=== PATIENT | male | born 1945 | race Caucasian/White ===

== ENCOUNTER 2017-12-14 19:14 | Emergency (ER) | payer MEDICARE ==
[~2017-12-14] VITALS: Ht 185.4 cm; Wt 126.1 kg
[~2017-12-14 19:14] MED LIST: ALLO100 PO; ASPI325T PO; DILT31TA PO; GLUCTAB; HYDR12.56 PO; LANO0.2510 PO; SIMV5TAB32 PO; TELM20 PO
[2017-12-14 19:21] VITALS: BP 168/101; RESP 20; TEMP 98.8
[2017-12-14] MEDS ORDERED: DILT31TA PO (19:40)
[2017-12-14] MEDS ORDERED: ATOR40TA16 PO (19:40)
[2017-12-14] MEDS ORDERED: HYDR-3580 PO (19:40)
[2017-12-14] MEDS ORDERED: HYDR12.56 PO (19:40)
[2017-12-14] MEDS ORDERED: ASPI1CHW4 CHEW (19:40)
[2017-12-14] MEDS ORDERED: OXYC1TAB35 PO (19:40)
[2017-12-14] MEDS ORDERED: METF500T4 PO (19:40)
[2017-12-14] MEDS ORDERED: LISI-519 PO (19:41)
[2017-12-14] MEDS ORDERED: FENO145T2 PO (19:41)
[2017-12-14] MEDS ORDERED: METO25TA3 PO (19:41)
--- NOTE | 2017-12-14 19:44 | PD ---
HPI Chief Complaint: Injury Time Seen by Provider: 19:31 Travel History International Travel<30 days: No Contact w/Intl Traveler<30days: No Traveled to known affect area: No History of Present Illness HPI 72-year-old male complains of right knee pain. Patient status post right knee surgery by Dr. Salazar on November 13, 2017. Patient has been doing well and going through physical therapy. Patient states that he is to cyst right knee today. Patient states that he has increasing pain and swelling the right knee since then. Patient states the pain is sharp pain most severe on the medial aspect of the right knee joint. Patient denies any pain radiation. Patient states that the pain is worse with weightbearing. Patient took oxycodone prior coming to the emergency room. Patient states that he got a lot of relief of pain from oxycodone. Patient states that he's worrying about infection or blood clots in the right knee. Patient denies any history of DVT or PE. Patient denies any chest pain or shortness of breath. PFSH Past Medical History Autoimmune Disease: No Blood Disorders: No Heart Rhythm Problems: Yes Cancer: No High Cholesterol: Yes COPD: Yes Diabetes: Yes Endocrine: No Hiatal Hernia: Yes Hypertension: Yes Kidney Stones: Yes Musculoskeletal: No Neurologic: No Psychiatric: No Respiratory: Yes (COPD) Sleep Apnea: Yes Social History Alcohol Use: Yes (OCCASSIONAL 4 BEERS A MONTH) Tobacco Use: No Substance Use: No Allergies-Medications (Allergen,Severity, Reaction): Coded Allergies: Sulfa (Sulfonamide Antibiotics) (Unverified Allergy, Mild, Nausea/Vomiting , 12/14/17) Reported Meds & Prescriptions Reported Meds & Active Scripts Active Reported Lisinopril 5 Mg Tab 5 Mg PO DAILY Metoprolol Tartrate 25 Mg Tab 25 Mg PO DAILY Fenofibrate 145 Mg Tab 145 Mg PO DAILY Oxycodone-Acetaminophen 7.5-325 mg Tab 1 Tab PO Q4H PRN Hydrocodone-Acetaminophen 7.5 Mg-325 Mg Tab 1 Tab PO Q4H PRN Atorvastatin (Atorvastatin Calcium) 40 Mg Tab 40 Mg PO DAILY Hydrochlorothiazide 12.5 Mg Tab 12.5 Mg PO DAILY Metformin ER (Metformin HCl) 500 Mg Ivis 500 Mg PO DAILY With evening meal Cardizem (Diltiazem HCl) 30 Mg Tab 30 Mg PO DAILY Aspirin 81 Low Dose (Aspirin) 81 Mg Chew 81 Mg CHEW DAILY Review of Systems General / Constitutional: No: Fever Eyes: No: Visual changes HENT: No: Headaches Cardiovascular: No: Chest Pain or Discomfort Respiratory: No: Shortness of Breath Gastrointestinal: No: Abdominal Pain Genitourinary: No: Dysuria Musculoskeletal: Positive: Pain Skin: No Rash Neurologic: No: Weakness Psychiatric: No: Depression Endocrine: No: Polydipsia Hematologic/Lymphatic: No: Easy Bruising Physical Exam Narrative GENERAL: Well-nourished, well-developed patient. SKIN: Focused skin assessment warm/dry. HEAD: Normocephalic. EYES: No scleral icterus. No injection or drainage. NECK: Supple, trachea midline. No JVD or lymphadenopathy. CARDIOVASCULAR: Regular rate and rhythm without murmurs, gallops, or rubs. RESPIRATORY: Breath sounds equal bilaterally. No accessory muscle use. GASTROINTESTINAL: Abdomen soft, non-tender, nondistended. MUSCULOSKELETAL: Patient has moderate tenderness all patient medial collateral ligament area the right knee. Full range of motion the knee. Knee joints stable. Mild effusion noted. No redness no heat noted. Surgical wound healing well. BACK: Nontender without obvious deformity. No CVA tenderness. Neurologic exam normal. Data Data Last Documented VS Vital Signs Date Time Temp Pulse Resp B/P (MAP) Pulse Ox O2 Delivery O2 Flow Rate FiO2 12/14/17 20:20 93 18 157/94 (115) 90 Room Air 12/14/17 19:21 98.8 Orders Orders Complete Blood Count With Diff (12/14/17 19:38) Basic Metabolic Panel (Bmp) (12/14/17 19:38) Prothrombin Time / Inr (Pt) (12/14/17 19:38) Act Partial Throm Time (Ptt) (12/14/17 19:38) Iv Access Insert/Monitor (12/14/17 19:38) Knee, Ltd (1 Or 2vws) (12/14/17 19:38) Us Leg Venous Doppler (12/14/17 19:38) C-Reactive Protein (Crp) (12/14/17 19:43) Westergren Sedimentation Rate (12/14/17 19:43) Labs Laboratory Tests Test 12/14/17 20:00 White Blood Count 8.6 TH/MM3 Red Blood Count 4.55 MIL/MM3 Hemoglobin 13.6 GM/DL Hematocrit 40.6 % Mean Corpuscular Volume 89.4 FL Mean Corpuscular Hemoglobin 29.9 PG Mean Corpuscular Hemoglobin Concent 33.4 % Red Cell Distribution Width 14.1 % Platelet Count 191 TH/MM3 Mean Platelet Volume 8.7 FL Neutrophils (%) (Auto) 72.4 % Lymphocytes (%) (Auto) 15.9 % Monocytes (%) (Auto) 8.5 % Eosinophils (%) (Auto) 2.0 % Basophils (%) (Auto) 1.2 % Neutrophils # (Auto) 6.2 TH/MM3 Lymphocytes # (Auto) 1.4 TH/MM3 Monocytes # (Auto) 0.7 TH/MM3 Eosinophils # (Auto) 0.2 TH/MM3 Basophils # (Auto) 0.1 TH/MM3 CBC Comment DIFF FINAL Differential Comment Erythrocyte Sedimentation Rate 6 mm/hr Prothrombin Time 11.0 SEC Prothromb Time International Ratio 1.1 RATIO Activated Partial Thromboplast Time 22.2 SEC Blood Urea Nitrogen 19 MG/DL Creatinine 1.30 MG/DL Random Glucose 155 MG/DL Calcium Level 9.2 MG/DL Sodium Level 140 MEQ/L Potassium Level 4.0 MEQ/L Chloride Level 106 MEQ/L Carbon Dioxide Level 24.0 MEQ/L Anion Gap 10 MEQ/L Estimat Glomerular Filtration Rate 54 ML/MIN [facility] Medical Decision Making Medical Screen Exam Complete: Yes Emergency Medical Condition: Yes Interpretation(s) Last Impressions Knee X-Ray 12/14/171937 Signed Impressions: Service Date/Time: Thursday, December 14, 2017 19:45 - CONCLUSION: No radiographic evidence of knee effusion. Intact medial hemiarthroplasty hardware. Ignacio Carey MD 21:03 PM. CBC within normal limits. Sedimentation rate 6. BUN 19. GFR 54. Differential Diagnosis Differential diagnosis including ligament injury, fracture, dislocation, DVT. Narrative Course 72-year-old male with increasing pain and swelling the right knee after persistent right knee today. Status post right knee surgery November 13. Diagnosis Primary Impression: Right knee sprain Qualified Codes: S83.411A - Sprain of medial collateral ligament of right knee , initial encounter Patient Instructions: General Instructions Additional Instructions: Continue with medication at home for pain. Follow-up with orthopedist as scheduled. Return if worse. Med/Other Pt SpecificInfo: No Change to Meds Disposition: 01 DISCHARGE HOME Condition: Stable Ramon Michaels MD Dec 14, 2017 19:44
[2017-12-14 20:10] LABS: AUTOMATED NEUTROPHIL # 6.2 TH/MM3 (1.8-7.7); BASOPHIL # 0.1 TH/MM3 (0-0.2); BASOPHIL % 1.2 % (0.0-2.0); EOSINOPHIL # 0.2 TH/MM3 (0-0.4); HEMATOCRIT 40.6 % (39.0-51.0); HEMOGLOBIN 13.6 GM/DL (13.0-17.0); LYMPH % 15.9 % (9.0-44.0); LYMPHOCYTE # 1.4 TH/MM3 (1.0-4.8); MEAN CELL VOLUME 89.4 FL (80.0-100.0); MEAN CORPUSCULAR HEMOGLOBIN 29.9 PG (27.0-34.0); MEAN CORPUSCULAR HGB CONC 33.4 % (32.0-36.0); MEAN PLATELET VOLUME 8.7 FL (7.0-11.0); MONO % 8.5 % (0.0-8.0); MONOCYTE # 0.7 TH/MM3 (0-0.9); NEUT % 72.4 % (16.0-70.0); PLATELET COUNT 191 TH/MM3 (150-450); RED BLOOD COUNT 4.55 MIL/MM3 (4.50-5.90); RED CELL DISTRIBUTION WIDTH 14.1 % (11.6-17.2); WHITE BLOOD COUNT 8.6 TH/MM3 (4.0-11.0)
--- NOTE | 2017-12-14 20:15 | RADRPT ---
EXAM DATE/TIME: 12/14/2017 19:45 [facility] COMPARISON: No previous studies available for comparison. INDICATIONS : Right medial knee pain since surgery 1 month ago. No known trauma. MEDICAL HISTORY : None. SURGICAL HISTORY : Right knee surgery. ENCOUNTER: Initial ACUITY: 1 month PAIN SCORE: 4/10 LOCATION: Right knee FINDINGS: Medial compartment hemiarthroplasty with normal alignment. No abnormal lucencies. No evidence of fr acture. No evidence of dislocation. No distention of the suprapatellar soft tissues. CONCLUSION: No radiographic evidence of knee effusion. Intact medial hemiarthroplasty hardware. Ignacio Carey MD on December 14, 2017 at 20:12 Board Certified Radiologist. This report was verified electronically.
[2017-12-14 20:20] VITALS: BP 157/94; PULSE 93; RESP 18; O2SAT 90
[2017-12-14 20:24] LABS: CALCIUM 9.2 MG/DL (8.5-10.1)
[2017-12-14 20:28] LABS: CREATININE 1.3 MG/DL (0.60-1.30)
[2017-12-14 20:37] LABS: INTERNATIONAL NORMALIZED RATIO 1.1 RATIO
--- NOTE | 2017-12-14 21:16 | RADRPT ---
EXAM DATE/TIME: 12/14/2017 20:57 [facility] COMPARISON: No previous studies available for comparison. INDICATIONS : Right knee pain after twisting it this afternoon. Post right knee replacement November 13, 2017. MEDICAL HISTORY : Hypertension. Diabetic. Kidney stones. SURGICAL HISTORY : Appendectomy. Right knee replacement. ENCOUNTER: Initial ACUITY: 1 day PAIN SCORE: 3/10 LOCATION: Right leg. TECHNIQUE: Venous ultrasound of the leg was performed from the inguinal ligament to the proximal calf. Real-brown e, color Doppler and spectral tracing, compression and augmentation techniques were used. FINDINGS: There is normal compressibility of the deep venous system from the inguinal region to the proximal ca lf. No echogenic clot is seen in the lumen of the common femoral, femoral, popliteal, and posterior tibial veins. There is a normal response of the venous system to proximal and distal augmentation an d respiration. CONCLUSION: Negative for deep venous thrombosis. Ignacio Carey MD on December 14, 2017 at 21:13 Board Certified Radiologist. This report was verified electronically.
== END 2017-12-14 21:36 | disposition home or self-care (01) ==
LOC: PHED 19:14
DX: M25.561 Pain in right knee (principal); S83.411A Sprain of medial collateral ligament of right knee, initial encounter; E11.9 Type 2 diabetes mellitus without complications; I10 Essential (primary) hypertension; J44.9 Chronic obstructive pulmonary disease, unspecified; E78.00 Pure hypercholesterolemia, unspecified; X58.XXXA Exposure to other specified factors, initial encounter; Z88.2 Allergy status to sulfonamides; Z87.442 Personal history of urinary calculi
CPT/HCPCS: 73560; 80048; 85025; 85610; 85652; 85730; 86140; 93971

== ENCOUNTER 2017-12-20 07:48 | Emergency (ER) | payer MEDICARE ==
[~2017-12-20] VITALS: Ht 185.4 cm; Wt 125.0 kg
[~2017-12-20 07:48] MED LIST changes: -ALLO100 PO; +ASPI1CHW4 CHEW; -ASPI325T PO; +ATOR40TA16 PO; +FENO145T2 PO; -GLUCTAB; +HYDR-3580 PO; -LANO0.2510 PO; +LISI-519 PO; +METF500T4 PO; +METO25TA3 PO; +OXYC1TAB35 PO; -SIMV5TAB32 PO; -TELM20 PO
[2017-12-20 07:55] VITALS: PULSE 100; RESP 16; TEMP 99.8; O2SAT 91
--- NOTE | 2017-12-20 08:27 | PD ---
HPI Chief Complaint: GI Complaint Time Seen by Provider: 08:10 Travel History International Travel<30 days: No Contact w/Intl Traveler<30days: No Traveled to known affect area: No History of Present Illness HPI This patient complains of cough and congestion. He has runny nose. Denies fever. He's been having protracted coughing spells which is now making his chest ache. He also complains of aching muscle groups throughout his body. No hemoptysis. Denies cardiac or lung disease. Symptoms severity is moderate. Duration 4 days. No alleviating factors. No exacerbating factors PFSH Past Medical History Hx Anticoagulant Therapy: Yes (asa 81mg) Autoimmune Disease: No Blood Disorders: No Heart Rhythm Problems: Yes Cancer: No Cardiac Catheterization: Yes Cardiovascular Problems: Yes (htn on meds) High Cholesterol: Yes COPD: Yes Diabetes: Yes (type 2) Patient Takes Glucophage: Yes Endocrine: No Hiatal Hernia: Yes Hypertension: Yes Kidney Stones: Yes Musculoskeletal: No Neurologic: No Psychiatric: No Reproductive: No Respiratory: Yes (copd) Immunizations Current: Yes (PREVNAR : 2015) Sleep Apnea: Yes Past Surgical History Appendectomy: Yes Joint Replacement: Yes (PARTIAL RIGHT KNEE) Tonsillectomy: Yes Other Surgery: Yes (APPY,SINUS ABCESS, VACETOMY, KIDNEY STONES) Social History Alcohol Use: Yes (OCCASSIONAL 4 BEERS A MONTH) Tobacco Use: No (QUIT 1982) Substance Use: No Allergies-Medications (Allergen,Severity, Reaction): Coded Allergies: Sulfa (Sulfonamide Antibiotics) (Unverified Allergy, Mild, Nausea/Vomiting , 12/20/17) Reported Meds & Prescriptions Reported Meds & Active Scripts Active Reported Lisinopril 5 Mg Tab 5 Mg PO DAILY Metoprolol Tartrate 25 Mg Tab 25 Mg PO DAILY Fenofibrate 145 Mg Tab 145 Mg PO DAILY Oxycodone-Acetaminophen 7.5-325 mg Tab 1 Tab PO Q4H PRN Hydrocodone-Acetaminophen 7.5 Mg-325 Mg Tab 1 Tab PO Q4H PRN Atorvastatin (Atorvastatin Calcium) 40 Mg Tab 40 Mg PO DAILY Hydrochlorothiazide 12.5 Mg Tab 12.5 Mg PO DAILY Metformin ER (Metformin HCl) 500 Mg Ivis 500 Mg PO DAILY With evening meal Cardizem (Diltiazem HCl) 30 Mg Tab 30 Mg PO DAILY Aspirin 81 Low Dose (Aspirin) 81 Mg Chew 81 Mg CHEW DAILY Review of Systems General / Constitutional: No: Fever Eyes: No: Visual changes HENT: Positive: Rhinorrhea, Congestion, No: Headaches Cardiovascular: Positive: Chest Pain or Discomfort Respiratory: Positive: Cough, No: Shortness of Breath Gastrointestinal: No: Abdominal Pain Genitourinary: No: Dysuria Musculoskeletal: No: Pain Skin: No Rash Neurologic: No: Weakness Psychiatric: No: Depression Endocrine: No: Polydipsia Hematologic/Lymphatic: No: Easy Bruising Physical Exam Narrative GENERAL: Well-nourished, well-developed patient in no apparent distress. SKIN: Focused skin assessment reveals no rash and nodules. Skin is Warm and dry. HEAD: Atraumatic. Normocephalic. EYES: Pupils equal and round. No scleral icterus. No injection or drainage. ENT: No nasal bleeding or discharge. Mucous membranes pink and moist. NECK: Trachea midline. No JVD. CARDIOVASCULAR: Regular rate and rhythm. No murmur appreciated. RESPIRATORY: No accessory muscle use. Clear to auscultation. Breath sounds equal bilaterally. GASTROINTESTINAL: Abdomen soft, non-tender, nondistended. Hepatic and splenic margins not palpable. MUSCULOSKELETAL: No obvious deformities. No clubbing. No cyanosis. No edema. NEUROLOGICAL: Awake and alert. No obvious cranial nerve deficits. Motor grossly within normal limits. Normal speech. PSYCHIATRIC: Appropriate mood and affect; insight and judgment normal. Data Data Last Documented VS Vital Signs Date Time Temp Pulse Resp B/P (MAP) Pulse Ox O2 Delivery O2 Flow Rate FiO2 12/20/17 07:55 99.8 100 16 91 Orders Orders Electrocardiogram (12/20/17 ) Chest, Single Ap (12/20/17 ) Influenzae A/B Antigen (12/20/17 08:21) Ketorolac Inj (Toradol Inj) (12/20/17 09:15) MDM Medical Decision Making Medical Screen Exam Complete: Yes Emergency Medical Condition: Yes Medical Record Reviewed: Yes Differential Diagnosis Bronchitis, pneumonia, URI Narrative Course I have reviewed the patient's electronic medical record. I reviewed his EKG which shows sinus rhythm and no ST elevation. There are a couple of PVCs I reviewed his chest x-ray shows no consolidation. There is some cardiomegaly Influenza swab is positive for influenza A I gave him a Toradol shot for his myalgias and headache Patient's chest pain is noncardiac and related to his coughing We discussed his influenza A. Diagnosis Primary Impression: Influenza A Additional Impressions: Non-cardiac chest pain Myalgia Headache Qualified Codes: R51 - Headache Additional Instructions: The patient was advised to follow up with their physician and return if they worsen. Med/Other Pt SpecificInfo: Other Disposition: 01 DISCHARGE HOME Condition: Stable Ortega Paige MD Dec 20, 2017 08:27
--- NOTE | 2017-12-20 08:47 | RADRPT ---
EXAM DATE/TIME: 12/20/2017 08:33 [facility] COMPARISON: No previous studies available for comparison. INDICATIONS : Cough. MEDICAL HISTORY : None. SURGICAL HISTORY : None. ENCOUNTER: Initial ACUITY: 1 week PAIN SCORE: 2/10 LOCATION: Bilateral chest FINDINGS: A single view of the chest demonstrates the lungs to be symmetrically aerated without evidence of mas s, infiltrate or effusion. There are chronic changes in both lung bases. The heart size is mildly en larged.. Osseous structures are intact. There is curvature of the upper thoracic spine to the right. There is osteopenia of the bony structures. There no prior studies for comparison. CONCLUSION: 1. No acute parenchymal infiltrates are demonstrated. 2. Mild compensated cardiomegaly. 3. Scoliosis with curvature of the upper thoracic spine to the right. Fan Gross MD on December 20, 2017 at 8:44 Board Certified Radiologist. This report was verified electronically.
[2017-12-20] MEDS ORDERED: KETOROLAC TROMETHAMINE 60 MG/2 ML (IM) VIAL IM ONE (09:15)
--- NOTE | 2017-12-20 14:40 | EKG ---
Date Performed: 12/20/2017 Time Performed: 08:32:00 PTAGE: 72 years EKG: Sinus rhythm WITH FREQUENT VENTRICULAR PREMATURE COMPLEXES LEFT ANTERIOR FASCICULAR BLOCK ABNORMAL ECG Since PREVIOUS TRACING , no significant change noted PREVIOUS TRACIN10/25/2008 08.54 DOCTOR: Sarabjit Boggs Interpretating Date/Time 12/20/2017 14:38:19
== END 2017-12-20 09:34 | disposition home or self-care (01) ==
LOC: PHED 07:48
DX: J09.X2 Influenza due to identified novel influenza A virus with other respiratory manifestations (principal); R07.89 Other chest pain; M79.1 Myalgia; R51 Headache; I10 Essential (primary) hypertension; E78.00 Pure hypercholesterolemia, unspecified; J44.9 Chronic obstructive pulmonary disease, unspecified; E11.9 Type 2 diabetes mellitus without complications; R94.31 Abnormal electrocardiogram [ECG] [EKG]; Z87.891 Personal history of nicotine dependence; Z88.2 Allergy status to sulfonamides; Z79.84 Long term (current) use of oral hypoglycemic drugs; Z79.82 Long term (current) use of aspirin; Z79.899 Other long term (current) drug therapy
CPT/HCPCS: 71045; 87804; 93005; 96372; 99285; J1885

== ENCOUNTER 2017-12-20 20:17 | Inpatient (IN) | payer MEDICARE ==
[~2017-12-20] VITALS: Ht 185.4 cm; Wt 128.4 kg
[2017-12-20 20:25] VITALS: BP 126/88; PULSE 94; RESP 20; TEMP 99.9; O2SAT 90
--- NOTE | 2017-12-20 21:30 | PD ---
HPI Chief Complaint: Cold / Flu Symptoms Time Seen by Provider: 21:13 Travel History International Travel<30 days: No Contact w/Intl Traveler<30days: No Traveled to known affect area: No History of Present Illness HPI The patient is a 72-year-old male with a history of COPD who was seen earlier today and found to have influenza A. He comes back in today because he feels miserable. The patient does not get oxygen at home. He states he has a headache and was given Toradol which helped temporarily. He is short of breath. He is diabetic and does take metformin for this. He also takes hydrocodone 7.5 for his headache. Apparently, his chest x-ray shows mild compensated cardiomegaly but no acute parenchymal infiltrates. PFSH Past Medical History Hx Anticoagulant Therapy: Yes (asa 81mg) Autoimmune Disease: No Blood Disorders: No Heart Rhythm Problems: Yes Cancer: No Cardiac Catheterization: Yes Cardiovascular Problems: Yes (htn on meds) High Cholesterol: Yes COPD: Yes Diabetes: Yes (type 2) Endocrine: No Hiatal Hernia: Yes Hypertension: Yes Kidney Stones: Yes Musculoskeletal: No Neurologic: No Psychiatric: No Reproductive: No Respiratory: Yes (COPD) Immunizations Current: Yes (PREVNAR 13: 2015) Sleep Apnea: Yes Past Surgical History Appendectomy: Yes Joint Replacement: Yes (PARTIAL RIGHT KNEE) Tonsillectomy: Yes Other Surgery: Yes (APPY,SINUS ABCESS, VACETOMY, KIDNEY STONES) Social History Alcohol Use: Yes (OCCASSIONAL 4 BEERS A MONTH) Tobacco Use: No (QUIT 1982) Substance Use: No Allergies-Medications (Allergen,Severity, Reaction): Coded Allergies: Sulfa (Sulfonamide Antibiotics) (Verified Allergy, Mild, Nausea/Vomiting, 12/20/17) Reported Meds & Prescriptions Reported Meds & Active Scripts Active Reported Lisinopril 5 Mg Tab 5 Mg PO DAILY Metoprolol Tartrate 25 Mg Tab 25 Mg PO DAILY Fenofibrate 145 Mg Tab 145 Mg PO DAILY Hydrocodone-Acetaminophen 7.5 Mg-325 Mg Tab 1 Tab PO Q4H PRN Atorvastatin (Atorvastatin Calcium) 40 Mg Tab 40 Mg PO DAILY Hydrochlorothiazide 12.5 Mg Tab 12.5 Mg PO DAILY Metformin ER (Metformin HCl) 500 Mg Ivis 500 Mg PO DAILY With evening meal Cardizem (Diltiazem HCl) 30 Mg Tab 30 Mg PO DAILY Aspirin 81 Low Dose (Aspirin) 81 Mg Chew 81 Mg CHEW DAILY Review of Systems Except as stated in HPI: all other systems reviewed are Neg Physical Exam Narrative GENERAL: The patient is alert, oriented 3 in slight respiratory distress. His vital signs show temperature of 99.9, pulse rate of 94 with oximetry of 90%. SKIN: Focused skin assessment warm/dry. HEAD: Atraumatic. Normocephalic. EYES: Pupils equal and round. No scleral icterus. No injection or drainage. ENT: No nasal bleeding or discharge. Mucous membranes pink and moist. NECK: Trachea midline. No JVD. CARDIOVASCULAR: Regular rate and rhythm. No murmur appreciated. RESPIRATORY: No accessory muscle use. Scattered wheezes are heard bilaterally. Breath sounds equal bilaterally. GASTROINTESTINAL: Abdomen soft, non-tender, nondistended. Hepatic and splenic margins not palpable. MUSCULOSKELETAL: No obvious deformities. No clubbing. No cyanosis. No edema. NEUROLOGICAL: Awake and alert. No obvious cranial nerve deficits. Motor grossly within normal limits. Normal speech. PSYCHIATRIC: Appropriate mood and affect; insight and judgment normal. Data Data Last Documented VS Vital Signs Date Time Temp Pulse Resp B/P (MAP) Pulse Ox O2 Delivery O2 Flow Rate FiO2 12/20/17 22:31 91 Nasal Cannula 3.00 12/20/17 22:30 105 18 12/20/17 20:25 99.9 Orders Orders Complete Blood Count With Diff (12/20/17 21:34) Basic Metabolic Panel (Bmp) (12/20/17 21:34) B-Type Natriuretic Peptide (12/20/17 21:34) Magnesium (Mg) (12/20/17 21:34) Troponin I (12/20/17 21:34) Arterial Blood Gas (Abg) (12/20/17 21:34) Urinalysis - C+S If Indicated (12/20/17 21:34) Iv Access Insert/Monitor (12/20/17 21:34) Ecg Monitoring (12/20/17 21:34) Oximetry (12/20/17 21:34) Oxygen Administration (12/20/17 21:34) Sodium Chloride 0.9% Flush (Ns Flush) (12/20/17 21:45) Albuterol-Ipratropium Neb (Duoneb Neb) (12/20/17 21:45) Ketorolac Inj (Toradol Inj) (12/20/17 21:45) Oseltamivir (Tamiflu) (12/20/17 23:30) Albuterol-Ipratropium Neb (Duoneb Neb) (12/20/17 23:30) Methylprednisolone So Succ Inj (Solumedr (12/21/17 00:00) Budeson-Formot 160-4.5 Mcg Inh (Symbicor (12/21/17 09:00) Admit To Inpatient (12/20/17 ) Vital Signs (Adult) Q4H (12/20/17 23:27) Activity Oob Ad Saranya (12/20/17 23:27) [facility] Justice / Telemetry .CONTINUOUS (12/20/17:) Intake + Output VIVI.QSHIFT (12/20/17 23:27) Sodium Chlor 0.9% 1000 Ml Inj (Ns 1000 M (12/20/17 23:27) Sodium Chloride 0.9% Flush (Ns Flush) (12/20/17 23:30) Sodium Chloride 0.9% Flush (Ns Flush) (12/21/17 09:00) Ondansetron Inj (Zofran Inj) (12/20/17 23:30) Comprehensive Metabolic Panel (12/21/17 06:00) Complete Blood Count With Diff (12/21/17 06:00) Pt Request For Service (12/20/17 23:27) Case Management Consult (12/20/17 23:27) Scd Bilateral/Knee High VIVI.BID (12/20/17 23:27) Asif Bilateral/Knee High VIVI.QSHIFT (12/20/17 23:30) Acetaminophen (Tylenol) (12/20/17 23:30) Acetamin-Hydrocod 325-5 Mg (Vidal 5-325 (12/20/17 23:30) Acetamin-Hydrocod 325-10 Mg (Vidal 10-32 (12/20/17 23:30) Docusate Sodium-Senna (Sarah-Colace) (12/21/17 09:00) Magnesium Hydroxide Liq (Milk Of Magnesi (12/20/17 23:30) Sennosides (Senokot) (12/20/17 23:30) Bisacodyl Supp (Dulcolax Supp) (12/20/17 23:30) Lactulose Liq (Lactulose Liq) (12/20/17 23:30) Inpatient Certification (12/20/17 ) Bedside Glucose VIVI.CSUGAR (12/20/17 23:27) Blood Glucose Goal (Criteria) (12/20/17 23:27) Hypoglycemia 70 Mg/Dl Or < (12/20/17 23:27) Notify Dr: Other (12/20/17 23:27) Dextrose 50% In Mary Jo (Vial) Inj (D50w (Vi (12/20/17 23:30) Glucagon Inj (Glucagon Inj) (12/20/17 23:30) Insulin Aspart Supplemtl Scale (Novolog (12/21/17 08:00) Aspirin Chew (Aspirin Chew) (12/21/17 09:00) Atorvastatin (Lipitor) (12/21/17 09:00) Diltiazem (Cardizem) (12/21/17 09:00) Fenofibrate (Tricor) (12/21/17 09:00) Metoprolol Tartrate (Lopressor) (12/21/17 09:00) Diet 1800 Ada Cons Carb (12/21/17 Breakfast) Admit Order (Ed Use Only) (12/20/17 23:34) Labs Laboratory Tests Test 12/20/17 21:55 12/20/17 22:21 12/20/17 22:55 12/20/17 23:00 Blood Gas Puncture Site RT RADIAL Blood Gas Patient Temperature 98.6 Blood Gas HCO3 24 mmol/L Blood Gas Base Excess 0.0 mmol/L Blood Gas Oxygen Saturation 85 % Arterial Blood pH 7.42 Arterial Blood Partial Pressure CO2 37 mmHG Arterial Blood Partial Pressure O2 53 mmHG Arterial Blood Oxygen Content 13.4 Vol % Arterial Blood Carboxyhemoglobin 2.0 % Arterial Blood Methemoglobin 1.0 % Blood Gas Hemoglobin 11.2 G/DL Blood Gas Inspired Oxygen 21 % Blood Urea Nitrogen 24 MG/DL Creatinine 1.60 MG/DL Random Glucose 148 MG/DL Calcium Level 8.8 MG/DL Magnesium Level 2.0 MG/DL Sodium Level 138 MEQ/L Potassium Level 4.5 MEQ/L Chloride Level 107 MEQ/L Carbon Dioxide Level 23.0 MEQ/L Anion Gap MEQ/L Estimat Glomerular Filtration Rate 43 ML/MIN Troponin I LESS THAN 0.02 NG/ML B-Type Natriuretic Peptide 73 PG/ML Urine Color DEE Urine Turbidity CLEAR Urine pH 5.0 Urine Specific [place] 1.035 Urine Protein 100 mg/dL Urine Glucose (UA) NEG mg/dL Urine Ketones NEG mg/dL Urine Occult Blood NEG Urine Nitrite NEG Urine Bilirubin NEG Urine Leukocyte Esterase NEG Urine RBC 0-3 /hpf Urine WBC 0-2 /hpf Urine Squamous Epithelial Cells 0-5 /hpf Urine Amorphous Sediment FEW Urine Bacteria NONE /hpf Microscopic Urinalysis Comment CULT NOT INDICATED White Blood Count 7.6 TH/MM3 Red Blood Count 4.04 MIL/MM3 Hemoglobin 12.0 GM/DL Hematocrit 36.0 % Mean Corpuscular Volume 89.0 FL Mean Corpuscular Hemoglobin 29.8 PG Mean Corpuscular Hemoglobin Concent 33.4 % Red Cell Distribution Width 14.2 % Platelet Count 184 TH/MM3 Mean Platelet Volume 8.2 FL Neutrophils (%) (Auto) 66.5 % Lymphocytes (%) (Auto) 21.4 % Monocytes (%) (Auto) 10.9 % Eosinophils (%) (Auto) 0.2 % Basophils (%) (Auto) 1.0 % Neutrophils # (Auto) 5.1 TH/MM3 Lymphocytes # (Auto) 1.6 TH/MM3 Monocytes # (Auto) 0.8 TH/MM3 Eosinophils # (Auto) 0.0 TH/MM3 Basophils # (Auto) 0.1 TH/MM3 CBC Comment DIFF FINAL Differential Comment MDM Medical Decision Making Medical Screen Exam Complete: Yes Emergency Medical Condition: Yes Medical Record Reviewed: Yes Interpretation(s) The chest x-ray shows no acute parenchymal infiltrates but does show mild compensated cardiomegaly and scoliosis. The blood gases on room air show pH 7.42, CO2 37, PO2 53 with O2 sat 85%. The BNP is 72. Differential Diagnosis COPD with acute exacerbation, flu syndrome, pneumonia-unlikely bronchitis with bronchospasm, hypoxemia Narrative Course The patient has COPD with acute exacerbation, bronchitis with bronchospasm and hypoxemia. He did get some relief with a DuoNeb treatments. The patient is hypoxemic when he is off oxygen and will need the oxygen. He also will benefit from nebulize treatments, he does not have a nebulizer at home. Physician Communication Physician Communication I discussed the patient with Dr. Apple, the patient will be admitted to her. Diagnosis Primary Impression: COPD with acute exacerbation Additional Impressions: Bronchitis with bronchospasm Hypoxemia Admitting Information Admitting Physician Requests: Admit Reyes Chen MD Dec 20, 2017 21:30
[2017-12-20] MEDS: RESP: ALBUTEROL 2.5 MG/IPRATROPIUM 0.5 MG NEB (SCH) INH ×3 (21:44→22:03)
[2017-12-20] MEDS ORDERED: SODIUM CHLORIDE 0.9% FLUSH 10 ML FLUSH IVF PRN (21:45)
[2017-12-20] MEDS ORDERED: KETOROLAC TROMETHAMINE 60 MG/2 ML (IM) VIAL IM ONE (21:45)
[2017-12-20 22:30] VITALS: BP 140/76; PULSE 105; RESP 18; O2SAT 91
[2017-12-20 22:31] VITALS: O2SAT 91
[2017-12-20 22:50] LABS: CHLORIDE 107 MEQ/L (98-107); SODIUM (NA) 138 MEQ/L (136-145)
[2017-12-20 22:52] LABS: CALCIUM 8.8 MG/DL (8.5-10.1)
[2017-12-20 22:53] LABS: BLOOD UREA NITROGEN 24 MG/DL (7-18); GLUCOSE,RANDOM 148 MG/DL (74-106)
[2017-12-20 22:56] LABS: GLOMERULAR FILTRATION RATE 43 ML/MIN (>89)
[2017-12-20 23:01] LABS: TROPONIN I LESS THAN 0.02 NG/ML (0.02-0.05)
[2017-12-20 23:09] LABS: AUTOMATED NEUTROPHIL # 5.1 TH/MM3 (1.8-7.7); BASOPHIL # 0.1 TH/MM3 (0-0.2); EOSINOPHIL % 0.2 % (0.0-4.0); LYMPH % 21.4 % (9.0-44.0); LYMPHOCYTE # 1.6 TH/MM3 (1.0-4.8); MEAN CORPUSCULAR HEMOGLOBIN 29.8 PG (27.0-34.0); MEAN CORPUSCULAR HGB CONC 33.4 % (32.0-36.0); MEAN PLATELET VOLUME 8.2 FL (7.0-11.0); MONO % 10.9 % (0.0-8.0); MONOCYTE # 0.8 TH/MM3 (0-0.9); NEUT % 66.5 % (16.0-70.0); PLATELET COUNT 184 TH/MM3 (150-450); RED BLOOD COUNT 4.04 MIL/MM3 (4.50-5.90); RED CELL DISTRIBUTION WIDTH 14.2 % (11.6-17.2); WHITE BLOOD COUNT 7.6 TH/MM3 (4.0-11.0)
[2017-12-20 23:10] LABS: BLOOD, URINE NEG (NEG); GLUCOSE,URINE NEG (NEG); KETONE, URINE NEG (NEG); NITRITE,URINE NEG (NEG); URINE LEUKOCYTE ESTERASE NEG (NEG)
[2017-12-20 23:20] LABS: BILIRUBIN, URINE NEG (NEG)
[2017-12-20 23:21] LABS: URINE COLOR AMBER (YELLW/STRAW)
[2017-12-20 23:22] LABS: AMORPHOUS SEDIMENT, URINE FEW; RBC, URINE 0-3 /hpf (0-3); SQUAMOUS EPITHELIAL CELL URINE 0-5 /hpf (0-5); WBC, URINE 0-2 /hpf (0-5)
[2017-12-20] MEDS ORDERED: LACTULOSE SYRUP 20 GM/30 ML CUP PO PRN (23:30)
[2017-12-20] MEDS ORDERED: SENNOSIDES 8.6 MG TAB PO PRN (23:30)
[2017-12-20] MEDS ORDERED: ACETAMINOPHEN 325 MG TAB PO PRN (23:30)
[2017-12-20] MEDS ORDERED: ACETAMINOPHEN/HYDROcodone 325 MG/5 MG TAB PO PRN (23:30)
[2017-12-20] MEDS ORDERED: BISACODYL 10 MG SUPP RECTAL PRN (23:30)
[2017-12-20] MEDS ORDERED: SODIUM CHLORIDE 0.9% FLUSH 10 ML FLUSH IV FLUSH PRN (23:30)
[2017-12-20] MEDS ORDERED: ONDANSETRON HCL 4 MG/2 ML VIAL IVP PRN (23:30)
[2017-12-20] MEDS ORDERED: RESP: ALBUTEROL 2.5 MG/IPRATROPIUM 0.5 MG NEB (PRN) NEB (23:30)
[2017-12-20] MEDS ORDERED: GLUCAGON 1 MG/ML VIAL OTHER PRN (23:30)
[2017-12-20] MEDS ORDERED: DEXTROSE 50% IN WATER 50 ML VIAL(D50) IV PUSH PRN (23:30)
[2017-12-20] MEDS ORDERED: MAGNESIUM HYDROXIDE SUSP 30 ML CUP PO PRN (23:30)
[2017-12-20 23:38] VITALS: BP 94/57; PULSE 92; RESP 16; O2SAT 93
[2017-12-21] VITALS (11 sets, daily range): BP systolic 126–160; BP diastolic 66–82; PULSE 73–94; RESP 14–22; TEMP 97.3–99.5; O2SAT 86–97
[2017-12-21] MEDS: SODIUM CHLOR 0.9% 1000 ML INJ 1,000 ML IV SCH ×3 (00:04→22:14)
[2017-12-21] MEDS: OSELTAMIVIR PHOSPHATE 75 MG CAP PO SCH ×3 (00:04→21:09)
[2017-12-21] MEDS: methylPREDNISolone SOD SUCC 40 MG/1 ML VIAL IV PUSH SCH ×4 (00:10→17:59)
[2017-12-21 07:02] LABS: AUTOMATED NEUTROPHIL # 4.9 TH/MM3 (1.8-7.7); BASOPHIL % 0.3 % (0.0-2.0); HEMATOCRIT 32.6 % (39.0-51.0); HEMOGLOBIN 10.7 GM/DL (13.0-17.0); LYMPH % 9.2 % (9.0-44.0); LYMPHOCYTE # 0.5 TH/MM3 (1.0-4.8); MEAN CELL VOLUME 90.1 FL (80.0-100.0); MEAN CORPUSCULAR HEMOGLOBIN 29.6 PG (27.0-34.0); MEAN CORPUSCULAR HGB CONC 32.8 % (32.0-36.0); MEAN PLATELET VOLUME 8.3 FL (7.0-11.0); MONO % 5.2 % (0.0-8.0); MONOCYTE # 0.3 TH/MM3 (0-0.9); NEUT % 85.3 % (16.0-70.0); PLATELET COUNT 151 TH/MM3 (150-450); RED BLOOD COUNT 3.61 MIL/MM3 (4.50-5.90); RED CELL DISTRIBUTION WIDTH 13.6 % (11.6-17.2); WHITE BLOOD COUNT 5.7 TH/MM3 (4.0-11.0)
[2017-12-21 07:03] LABS: CHLORIDE 106 MEQ/L (98-107); SODIUM (NA) 139 MEQ/L (136-145)
[2017-12-21 07:23] LABS: ALBUMIN 3.1 GM/DL (3.4-5.0); ALKALINE PHOSPHATASE 46 U/L (45-117); ALT (GPT) 13 U/L (12-78); AST (GOT) 15 U/L (15-37); BICARBONATE 25.7 MEQ/L (21.0-32.0); BLOOD UREA NITROGEN 28 MG/DL (7-18); CALCIUM 8.2 MG/DL (8.5-10.1); GLOMERULAR FILTRATION RATE 40 ML/MIN (>89); GLUCOSE,RANDOM 180 MG/DL (74-106); TOTAL BILIRUBIN ADULT 0.6 MG/DL (0.2-1.0); TOTAL PROTEIN 6.8 GM/DL (6.4-8.2)
[2017-12-21] MEDS: INSULIN ASPART SUPPLEMENTAL SCALE SQ SCH ×4 (08:00→22:14)
--- NOTE | 2017-12-21 08:36 | HHI.HP ---
HPI Service [facility] Hospitalists Primary Care Physician Non-Staff Admission Diagnosis COPD with acute exacerbation, hypoxemia, bronchitis with bronchospas Diagnoses: (1) Acute respiratory failure with hypoxia Diagnosis: Principal (2) Influenza A Diagnosis: Principal Chief Complaint: Did not feel well Travel History International Travel<30 Days: No Contact w/Intl Traveler <30 Da: No Traveled to Known Affected Are: No Sepsis Criteria SIRS Criteria (2 or more): Heart rate over 90 Sepsis Criteria (SIRS+source): Infect source susp/known History of Present Illness 72 year-old male with known history of diabetes, hypertension, hyponatremia, chronic obstructive pulmonary disease, obstructive sleep apnea who presented to hospital did not feel well. Patient states that on Friday morning he did come to emergency department and was diagnosed with influenza A, patient was discharged home on Tamiflu. Patient states that he got home and started feeling worse with productive cough with white phlegm, fever, headache, body aches. Patient was concerned that he felt like he is going to . He indicates that he had a friend that just lost his and cousin the flu so he was concerned so he came to emergency department for evaluation. Patient had further workup done with blood gas that did show hypoxia. Because of this the patient was recommended admission the hospital for further evaluation and management. Review of Systems Constitutional: COMPLAINS OF: Diaphoretic episodes, Fever, Chills Ears, nose, mouth, throat: COMPLAINS OF: Throat pain, Running Nose Respiratory: COMPLAINS OF: Cough, Sputum production Except as stated in HPI: all other systems reviewed are Neg Past Family Social History Past Medical History Hypertension Hyperlipidemia Chronic affective pulmonary disease Diabetes Arthritis Obstructive sleep apnea requiring CPAP Past Surgical History Right knee surgery Appendectomy Tonsillectomy Melanoma excision 3 Reported Medications Reported Meds & Active Scripts Active Reported Lisinopril 5 Mg Tab 5 Mg PO DAILY Metoprolol Tartrate 25 Mg Tab 25 Mg PO DAILY Fenofibrate 145 Mg Tab 145 Mg PO DAILY Hydrocodone-Acetaminophen 7.5 Mg-325 Mg Tab 1 Tab PO Q4H PRN Atorvastatin (Atorvastatin Calcium) 40 Mg Tab 40 Mg PO DAILY Hydrochlorothiazide 12.5 Mg Tab 12.5 Mg PO DAILY Metformin ER (Metformin HCl) 500 Mg Ivis 500 Mg PO DAILY With evening meal Cardizem (Diltiazem HCl) 30 Mg Tab 30 Mg PO DAILY Aspirin 81 Low Dose (Aspirin) 81 Mg Chew 81 Mg CHEW DAILY Allergies: Coded Allergies: Sulfa (Sulfonamide Antibiotics) (Verified Allergy, Mild, Nausea/Vomiting, 12/20/17) Family History Reviewed is significant for father at age 72 with metastatic cancer. Mother at 48 from myocardial infarction Social History Patient quit smoking in 1982, prior to that she smoked one pack a cigarettes a day since he was 17 years old. He does drink 2 beers occasionally. Denies any illicit drugs Physical Exam Vital Signs Vital Signs Date Time Temp Pulse Resp B/P (MAP) Pulse Ox O2 Delivery O2 Flow Rate FiO2 12/21/17 07:37 95 Nasal Cannula 3.00 12/21/17 04:48 97.9 80 18 132/68 (89) 90 12/21/17 02:59 73 12/21/17 02:30 97.3 81 16 138/70 (92) 90 12/21/17 02:12 97 Nasal Cannula 3.00 12/21/17 01:24 94 18 94 Nasal Cannula 3.00 12/21/17 01:19 94 18 94 Nasal Cannula 3.00 12/21/17 00:42 93 18 126/66 (86) 94 Nasal Cannula 3.00 12/20/17 23:38 92 16 94/57 (69) 93 Nasal Cannula 3.00 12/20/17 22:31 91 Nasal Cannula 3.00 12/20/17 22:30 105 18 140/76 (97) 91 Nasal Cannula 3.00 12/20/17 22:28 91 Nasal Cannula 3.00 12/20/17 20:50 18 93 Nasal Cannula 3.00 12/20/17 20:25 99.9 94 20 126/88 (101) 90 Physical Exam GENERAL: Well-developed, well-nourished, in no acute distress. alert and orientated HEENT: Head is normocephalic without any lesions or masses noted. Facial features are symmetric. Eyes: Pupils equal round reactive to light. Extraocular muscles are intact. Conjunctivae were clear. Oropharyngeal: Pharynx without any erythema edema. Tongue is midline without deviation. Buccal mucosa is moist without any masses or lesions NECK: Supple without any masses. Trachea midline no deviation. No JVD, no bruits are appreciated CARDIAC: Regular rhythm, regular rate. S1/S2 are heard. No murmurs gallops or rubs. LUNGS: Clear to auscultation bilaterally. No wheeze, rhonchi or rales. No use of accessory muscles on inspiration or expiration. ABDOMEN: Soft, nontender. Nondistended. Bowel sounds heard in all 4 quadrants. No organomegaly or masses. Negative rebound, negative guarding EXTREMITIES: No edema, pulses are equal bilaterally. No cyanosis or clubbing NEUROLOGY: Mood and affect appear appropriate. Cranial nerves II through XII grossly intact. Muscle strength 5/5 in upper and lower extremities bilaterally. Deep tendon reflexes are 2+ in upper and lower extremities bilaterally. Laboratory Laboratory Tests Test 12/20/17 21:55 12/20/17 22:21 12/20/17 22:55 12/20/17 23:00 Blood Gas Puncture Site RT RADIAL Blood Gas Patient Temperature 98.6 Blood Gas HCO3 24 Blood Gas Base Excess 0.0 Blood Gas Oxygen Saturation 85 Arterial Blood pH 7.42 Arterial Blood Partial Pressure CO2 37 Arterial Blood Partial Pressure O2 53 Arterial Blood Oxygen Content 13.4 Arterial Blood Carboxyhemoglobin 2.0 Arterial Blood Methemoglobin 1.0 Blood Gas Hemoglobin 11.2 Blood Gas Inspired Oxygen 21 Blood Urea Nitrogen 24 Creatinine 1.60 Random Glucose 148 Calcium Level 8.8 Magnesium Level 2.0 Sodium Level 138 Potassium Level 4.5 Chloride Level 107 Carbon Dioxide Level 23.0 Anion Gap Estimat Glomerular Filtration Rate 43 Troponin I LESS THAN 0.02 B-Type Natriuretic Peptide 73 Urine Color DEE Urine Turbidity CLEAR Urine pH 5.0 Urine Specific [place] 1.035 Urine Protein 100 Urine Glucose (UA) NEG Urine Ketones NEG Urine Occult Blood NEG Urine Nitrite NEG Urine Bilirubin NEG Urine Leukocyte Esterase NEG Urine RBC 0-3 Urine WBC 0-2 Urine Squamous Epithelial Cells 0-5 Urine Amorphous Sediment FEW Urine Bacteria NONE Microscopic Urinalysis Comment CULT NOT INDICATED White Blood Count 7.6 Red Blood Count 4.04 Hemoglobin 12.0 Hematocrit 36.0 Mean Corpuscular Volume 89.0 Mean Corpuscular Hemoglobin 29.8 Mean Corpuscular Hemoglobin Concent 33.4 Red Cell Distribution Width 14.2 Platelet Count 184 Mean Platelet Volume 8.2 Neutrophils (%) (Auto) 66.5 Lymphocytes (%) (Auto) 21.4 Monocytes (%) (Auto) 10.9 Eosinophils (%) (Auto) 0.2 Basophils (%) (Auto) 1.0 Neutrophils # (Auto) 5.1 Lymphocytes # (Auto) 1.6 Monocytes # (Auto) 0.8 Eosinophils # (Auto) 0.0 Basophils # (Auto) 0.1 CBC Comment DIFF FINAL Differential Comment Test 12/21/17 06:40 White Blood Count 5.7 Red Blood Count 3.61 Hemoglobin 10.7 Hematocrit 32.6 Mean Corpuscular Volume 90.1 Mean Corpuscular Hemoglobin 29.6 Mean Corpuscular Hemoglobin Concent 32.8 Red Cell Distribution Width 13.6 Platelet Count 151 Mean Platelet Volume 8.3 Neutrophils (%) (Auto) 85.3 Lymphocytes (%) (Auto) 9.2 Monocytes (%) (Auto) 5.2 Eosinophils (%) (Auto) 0.0 Basophils (%) (Auto) 0.3 Neutrophils # (Auto) 4.9 Lymphocytes # (Auto) 0.5 Monocytes # (Auto) 0.3 Eosinophils # (Auto) 0.0 Basophils # (Auto) 0.0 CBC Comment DIFF FINAL Differential Comment Blood Urea Nitrogen 28 Creatinine 1.70 Random Glucose 180 Total Protein 6.8 Albumin 3.1 Calcium Level 8.2 Alkaline Phosphatase 46 Aspartate Amino Transf (AST/SGOT) 15 Alanine Aminotransferase (ALT/SGPT) 13 Total Bilirubin 0.6 Sodium Level 139 Potassium Level 4.3 Chloride Level 106 Carbon Dioxide Level 25.7 Anion Gap 7 Estimat Glomerular Filtration Rate 40 Result Diagram: 12/21/1740 12/21/1740 Caprini VTE Risk Assessment Caprini VTE Risk Assessment: Mod/High Risk (score >= 2) Caprini Risk Assessment Model Point Value = 1 Point Value = 2 Point Value = 3 Point Value = 5 Age 41-60 Minor surgery BMI > 25 kg/m2 Swollen legs Varicose veins or History of unexplained or recurrent spontaneous Oral contraceptives or hormone replacement Sepsis (< 1 month) Serious lung disease, including pneumonia (< 1 month) Abnormal pulmonary function Acute myocardial infarction Congestive heart failure (< 1 month) History of inflammatory bowel disease Medical patient at bed rest Age 61-74 Arthroscopic surgery Major open surgery (> 45 min) Laparoscopic surgery (> 45 min) Malignancy Confined to bed (> 72 hours) Immobilizing plaster cast Central venous access Age >= 75 History of VTE Family history of VTE Factor V Leiden Prothrombin [id number] Lupus anticoagulant Anticardiolipin antibodies Elevated serum homocysteine Heparin-induced thrombocytopenia Other congenital or acquired thrombophilia Stroke (< 1 month) Elective arthroplasty Hip, pelvis, or leg fracture Acute spinal cord injury (< 1 month) Prophylaxis Regimen Total Risk Factor Score Risk Level Prophylaxis Regimen 0-1 Low Early ambulation 2 Moderate Order ONE of the following: *Sequential Compression Device (SCD) *Heparin 5000 units SQ BID 3-4 Higher Order ONE of the following medications: *Heparin 5000 units SQ TID *Enoxaparin/Lovenox 40 mg SQ daily (WT < 150 kg, CrCl > 30 mL/min) *Enoxaparin/Lovenox 30 mg SQ daily (WT < 150 kg, CrCl > 10-29 mL/min) *Enoxaparin/Lovenox 30 mg SQ BID (WT < 150 kg, CrCl > 30 mL/min) AND/OR *Sequential Compression Device (SCD) 5 or more Highest Order ONE of the following medications: *Heparin 5000 units SQ TID (Preferred with Epidurals) *Enoxaparin/Lovenox 40 mg SQ daily (WT < 150 kg, CrCl > 30 mL/min) *Enoxaparin/Lovenox 30 mg SQ daily (WT < 150 kg, CrCl > 10-29 mL/min) *Enoxaparin/Lovenox 30 mg SQ BID (WT < 150 kg, CrCl > 30 mL/min) AND *Sequential Compression Device (SCD) Assessment and Plan Assessment and Plan Acute hypoxic respiratory failure, likely secondary to influenza A infection with underlying chronic obstructive pulmonary disease Continue O2 supplementation maintain O2 sats greater than 92% Continue Solu-Medrol 40 mg every 6 hours Continue duo nebs every 6 hours and every 2 hours Chest x-ray does not indicate any infiltrates. Does show compensated cardiomegaly Patient was tachycardic on presentation with hypoxia. Will obtain d-dimer with reflex pulmonary angiogram if needed Influenza A infection Continue Tamiflu Symptomatic treatment Diabetes Accu-Cheks with sliding scale insulin Hypertension, hyperlipidemia, Home medications continued Obstructive sleep apnea May use own CPAP DVT prevention Subcutaneous heparin Sequential compression devices Physician Certification 2 Midnight Certification Type: Admission for Inpatient Services Order for Inpatient Services The services are ordered in accordance with Medicare regulations or non- Medicare payer requirements, as applicable. In the case of services not specified as inpatient-only, they are appropriately provided as inpatient services in accordance with the 2-midnight benchmark. Estimated LOS (days): 2 days is the estimated time the patient will need to remain in the hospital, assuming treatment plan goals are met and no additional complications. Post-Hospital Plan: Not yet determined Ortega Chen Dec 21, 2017 08:36
[2017-12-21] MEDS: DILTIAZEM HCL 30 MG TAB PO SCH (08:59)
[2017-12-21] MEDS: METOPROLOL TARTRATE 25 MG TAB PO SCH (09:00)
[2017-12-21] MEDS: SODIUM CHLORIDE 0.9% FLUSH 10 ML FLUSH IV FLUSH SCH ×2 (09:00→21:09)
[2017-12-21] MEDS: ATORVASTATIN 40 MG TAB PO SCH (09:00)
[2017-12-21] MEDS: FENOFIBRATE 145 MG TAB PO SCH (09:01)
[2017-12-21] MEDS: ASPIRIN 81 MG CHEW TAB CHEW SCH (09:01)
[2017-12-21] MEDS: DOCUSATE SODIUM 50 MG/SENNA 8.6 MG TAB PO SCH ×2 (09:02→21:09)
[2017-12-21] MEDS: BUDESONIDE-FORMOTEROL 160/4.5 MCG INHALER INH SCH ×2 (09:03→21:08)
[2017-12-21] MEDS: ACETAMINOPHEN/HYDROcodone 325 MG/10 MG TAB PO PRN ×2 (11:17→21:10)
[2017-12-21] MEDS ORDERED: RESP: ALBUTEROL 2.5 MG/IPRATROPIUM 0.5 MG NEB (PRN) NEB (13:00)
[2017-12-21] MEDS: RESP: ALBUTEROL 2.5 MG/IPRATROPIUM 0.5 MG NEB (SCH) NEB ×2 (14:02→20:23)
[2017-12-21] MEDS ORDERED: IODIXANOL 320 MG/ML 10 ML VIAL (for Rad CT) IVCONTRAST ONE (17:40)
--- NOTE | 2017-12-21 17:53 | RADRPT ---
EXAM DATE/TIME: 12/21/2017 17:28 CORRECTION Corrected on: December 22, 2017; typographical error in the impression was corrected. [facility] COMPARISON: No previous studies available for comparison. INDICATIONS : Hypoxic. Evaluate for pulmonary embolism. IV CONTRAST: 50 cc Visipaque (iodixanol) IV RADIATION DOSE: 21.70 CTDIvol (mGy) ; Patient body habitus MEDICAL HISTORY : Hypertension. Chronic obstructive pulmonary disease. Anticoagulant therapy. SURGICAL HISTORY : Appendectomy. ENCOUNTER: Initial ACUITY: 1 day PAIN SCALE: 0/10 LOCATION: chest TECHNIQUE: Volumetric scanning of the chest was performed using a pulmonary embolism protocol MIP images were re constructed. Using automated exposure control and adjustment of the mA and/or kV according to patien t size, radiation dose was kept as low as reasonably achievable to obtain optimal diagnostic quality images. DICOM format image data is available electronically for review and comparison. Follow-up recommendations for detected pulmonary nodules are based at a minimum on nodule size and pa tient risk factors according to Fleischner Society Guidelines. FINDINGS: PULMONARY ARTERIES: No filling defects are seen in the pulmonary arteries through the segmental level. On image 42 in the right upper lobe and image 76 in the right lower lobe have some mild inhomogeneity but I don't see a ny definite filling defects LUNGS: Atelectasis right lung base. Minimal atelectasis left lower lobe in the lingula.. PLEURAE: There is no pleural thickening or pleural effusion. MEDIASTINUM: There is good visualization of the great vessels of the middle mediastinum. No evidence of mediastin al or hilar adenopathy/mass. MUSCULOSKELETAL: Pronounced rightward thoracic scoliosis MISCELLANEOUS: The visualized upper abdominal organs demonstrate no acute abnormality. CONCLUSION: No definite pulmonary embolism is identified. Severe scoliosis. Inhomogenous enhancement within the r ight lower lobe vessels adjacent to atelectasis which I do not believe are pulmonary emboli. Caio Kwon MD on December 21, 2017 at 17:50 Board Certified Radiologist. This report was verified electronically. Ignacio Carey MD on December 22, 2017 at 13:48 Board Certified Radiologist. This report was verified electronically.
[2017-12-21] MEDS: HEPARIN SODIUM - SQ 10,000 UNITS/ML VIAL SQ SCH (21:11)
[2017-12-22] MEDS: methylPREDNISolone SOD SUCC 40 MG/1 ML VIAL IV PUSH SCH ×3 (00:14→08:02)
[2017-12-22 00:30] VITALS: BP 151/86; PULSE 84; RESP 16; TEMP 98.8; O2SAT 92
[2017-12-22 04:39] VITALS: BP 149/79; PULSE 70; RESP 20; TEMP 98.6; O2SAT 97
[2017-12-22] MEDS: SODIUM CHLOR 0.9% 1000 ML INJ 1,000 ML IV SCH ×2 (05:27→14:49)
[2017-12-22 07:28] LABS: AUTOMATED NEUTROPHIL # 5.5 TH/MM3 (1.8-7.7); BASOPHIL % 0.2 % (0.0-2.0); HEMATOCRIT 32.9 % (39.0-51.0); HEMOGLOBIN 10.7 GM/DL (13.0-17.0); LYMPH % 9.7 % (9.0-44.0); LYMPHOCYTE # 0.6 TH/MM3 (1.0-4.8); MEAN CELL VOLUME 89.5 FL (80.0-100.0); MEAN CORPUSCULAR HEMOGLOBIN 29.1 PG (27.0-34.0); MEAN CORPUSCULAR HGB CONC 32.5 % (32.0-36.0); MEAN PLATELET VOLUME 8.8 FL (7.0-11.0); MONO % 7.1 % (0.0-8.0); MONOCYTE # 0.5 TH/MM3 (0-0.9); PLATELET COUNT 167 TH/MM3 (150-450); RED BLOOD COUNT 3.67 MIL/MM3 (4.50-5.90); RED CELL DISTRIBUTION WIDTH 13.4 % (11.6-17.2); WHITE BLOOD COUNT 6.6 TH/MM3 (4.0-11.0)
[2017-12-22 07:42] LABS: BICARBONATE 25.6 MEQ/L (21.0-32.0); MAGNESIUM 1.9 MG/DL (1.5-2.5)
[2017-12-22 07:44] LABS: CALCIUM 8.3 MG/DL (8.5-10.1)
[2017-12-22] MEDS: INSULIN ASPART SUPPLEMENTAL SCALE SQ SCH ×2 (07:58→11:22)
[2017-12-22 08:00] VITALS: BP 179/95; PULSE 74; RESP 18; TEMP 98.3; O2SAT 96
[2017-12-22] MEDS: ASPIRIN 81 MG CHEW TAB CHEW SCH (08:00)
[2017-12-22] MEDS: HEPARIN SODIUM - SQ 10,000 UNITS/ML VIAL SQ SCH (08:00)
[2017-12-22] MEDS: METOPROLOL TARTRATE 25 MG TAB PO SCH (08:01)
[2017-12-22] MEDS: DOCUSATE SODIUM 50 MG/SENNA 8.6 MG TAB PO SCH (08:01)
[2017-12-22] MEDS: ATORVASTATIN 40 MG TAB PO SCH (08:01)
[2017-12-22] MEDS: DILTIAZEM HCL 30 MG TAB PO SCH (08:01)
[2017-12-22] MEDS: SODIUM CHLORIDE 0.9% FLUSH 10 ML FLUSH IV FLUSH SCH (08:02)
[2017-12-22] MEDS: FENOFIBRATE 145 MG TAB PO SCH (08:02)
[2017-12-22] MEDS: OSELTAMIVIR PHOSPHATE 75 MG CAP PO SCH (08:02)
[2017-12-22] MEDS: BUDESONIDE-FORMOTEROL 160/4.5 MCG INHALER INH SCH (08:02)
[2017-12-22] MEDS: RESP: ALBUTEROL 2.5 MG/IPRATROPIUM 0.5 MG NEB (SCH) NEB ×2 (08:18→14:51)
[2017-12-22 08:20] VITALS: O2SAT 88
[2017-12-22] MEDS: ACETAMINOPHEN/HYDROcodone 325 MG/10 MG TAB PO PRN (09:25)
--- NOTE | 2017-12-22 11:45 | HHI.PR ---
Subjective Remarks Patient seen and examined today for follow-up on respiratory failure, influenza. Patient states that he still is feeling well. Feels like he got beat up last night. Patient still requiring increased O2 supplementation. He is afebrile Objective Vitals Vital Signs Date Time Temp Pulse Resp B/P (MAP) Pulse Ox O2 Delivery O2 Flow Rate FiO2 12/22/17 10:25 20 12/22/17 08:20 88 21 12/22/17 08:00 98.3 74 18 179/95 (123) 96 12/22/17 04:39 98.6 70 20 149/79 (102) 97 12/22/17 00:30 98.8 84 16 151/86 (107) 92 12/21/17 20:23 92 Nasal Cannula 3.00 12/21/17 20:16 99.5 81 14 150/82 (104) 86 12/21/17 16:00 98.5 83 22 158/81 (106) 89 12/21/17 12:00 97.3 94 22 160/78 (105) 95 I/O 12/21/17 12/21/17 12/21/17 12/22/17 12/22/17 12/22/17 07:00 15:00 23:00 07:00 15:00 23:00 Intake Total 688 ml 825 ml 887 ml Output Total 1150 ml 2000 ml 300 ml 800 ml Balance 688 ml -325 ml -1113 ml -300 ml -800 ml Intake Oral 825 ml IV Total 688 ml 887 ml Output Urine Total 1150 ml 750 ml 300 ml 800 ml Stool Total 1250 ml # Voids 1 # Bowel Movements 0 Result Diagram: 12/22/17 0620 12/22/17 0620 Objective Remarks GENERAL: Well-developed, well-nourished, in no acute distress. alert and orientated HEENT: Head is normocephalic without any lesions or masses noted. Facial features are symmetric. Eyes: Extraocular muscles are intact. Conjunctivae were clear. NECK: Supple without any masses. Trachea midline no deviation. No JVD, CARDIAC: Regular rhythm, regular rate. S1/S2 are heard. No murmurs gallops or rubs. LUNGS: Clear to auscultation bilaterally. No wheeze, rhonchi or rales. No use of accessory muscles on inspiration or expiration. ABDOMEN: Soft, nontender. Nondistended. Bowel sounds heard in all 4 quadrants. No organomegaly or masses. Negative rebound, negative guarding EXTREMITIES: No edema, pulses are equal bilaterally. No cyanosis or clubbing NEUROLOGY: Mood and affect appear appropriate. Cranial nerves II through XII grossly intact. Moving all extremities, speech is clear Urinary Catheter: No Vascular Central Line Catheter: No A/P Assessment and Plan Acute hypoxic respiratory failure, likely secondary to influenza A infection with underlying chronic obstructive pulmonary disease Continue O2 supplementation maintain O2 sats greater than 92% Continue Solu-Medrol 40 mg every 6 hours Continue duo nebs every 6 hours and every 2 hours Chest x-ray does not indicate any infiltrates. Does show compensated cardiomegaly D-dimer was positive Pulmonary angiogram does not indicate any pulmonary emboli or infiltrates.mild inhomogeneity but no definite filling defects Oxygen walk study was performed and patient requires home oxygen Case management consulted for home oxygen Influenza A infection Continue Tamiflu Symptomatic treatment Diabetes Accu-Cheks with sliding scale insulin Hypertension, hyperlipidemia, Home medications continued Obstructive sleep apnea May use own CPAP DVT prevention Subcutaneous heparin Sequential compression devices Discharge Planning Discharge home in stable condition once oxygen arranged Activity: Ad christine. Diet: Healthy heart diet Medications per medication reconciliation Follow-up primary medical doctor in one week Ortega Chen Dec 22, 2017 11:45
[2017-12-22 12:00] VITALS: BP 159/107; PULSE 88; TEMP 97.4; O2SAT 93
[2017-12-22] MEDS ORDERED: OXYGENDME NAS.CANULA (12:35)
[2017-12-22] MEDS ORDERED: MEDR4PAK PO (13:19)
[2017-12-22] MEDS ORDERED: Budeson-Formot 160-4.5 Mcg Inh INH (13:19)
[2017-12-22] MEDS ORDERED: OSEL75 PO (13:19)
--- NOTE | 2017-12-22 13:19 | HHI.DCPOC ---
Discharge Care Plan Diagnosis: (1) Acute respiratory failure with hypoxia (2) COPD with acute exacerbation (3) Hypoxemia (4) Influenza A Goals to Promote Your Health * To prevent worsening of your condition and complications * To maintain your health at the optimal level Directions to Meet Your Goals Take your medications as prescribed Follow your dietary instruction Follow activity as directed Keep your appointments as scheduled Take your immunizations and boosters as scheduled If your symptoms worsen call your PCP, if no PCP go to Urgent Care Center or Emergency Room Smoking is Dangerous to Your Health. Avoid second hand smoke Call the 24-hour hour crisis hotline for domestic abuse at Ortega Chen Dec 22, 2017 13:19
[2017-12-22 16:00] VITALS: BP 185/81; PULSE 82; RESP 18; TEMP 98.8; O2SAT 92
== END 2017-12-22 17:11 | disposition home or self-care (01) | DRG 189 ==
LOC: PHED 20:17 → PHEDA 23:35 → PH3A 12-21 01:41
PROVIDERS: ADMIT Hospitalist; ATTEND Hospitalist
DX: J96.01 Acute respiratory failure with hypoxia (principal); J44.1 Chronic obstructive pulmonary disease with (acute) exacerbation; E11.9 Type 2 diabetes mellitus without complications; I11.9 Hypertensive heart disease without heart failure; I10 Essential (primary) hypertension; J10.1 Influenza due to other identified influenza virus with other respiratory manifestations; G47.33 Obstructive sleep apnea (adult) (pediatric); E78.5 Hyperlipidemia, unspecified; J98.01 Acute bronchospasm; M19.90 Unspecified osteoarthritis, unspecified site; Z79.84 Long term (current) use of oral hypoglycemic drugs; Z85.820 Personal history of malignant melanoma of skin; Z87.891 Personal history of nicotine dependence; Z88.2 Allergy status to sulfonamides
CPT/HCPCS: 36600; 71275; 80048; 80053; 81001; 82805; 82948; 83735; 83880; 84484; 85025; 85379; 94618; 94640; 94664; 96372; J1644; J1815; J1885; J2920; J7030; Q9967

== ENCOUNTER 2018-07-24 13:36 | Inpatient (IN) ==
--- NOTE | 2018-07-24 14:16 | ED ---
HPI General Chief Complaint: Chest Pain Stated Complaint: Sob/Chest pain Time Seen by Provider: 07/24/18 13:47 Source: patient Mode of arrival: ambulatory Limitations: no limitations History of Present Illness HPI narrative: Is a 72-year-old man presents to the emergency department, increased shortness of breath recently over the past 2 days. He has a history of diabetes, sleep apnea, COPD, and CAD with a history of NE. He states over the past day or 2 with increased shortness of breath, as well as right-sided chest pain that started yesterday. Just [place] from out of state, [place] days, arriving just a couple days ago. He saw his systems management consultant, Dr. Noyola , today was doing well. After leaving her office he developed a sharp pleuritic right-sided chest pain. Denies any lower extremity swelling and cramping. Related Data Home Medications Medication Instructions Recorded Confirmed albuterol sulfate 2.5 mg INHALATION Q4-6H PRN 07/24/18 07/24/18 aspirin 81 mg PO DAILY 07/24/18 07/24/18 carvedilol [Coreg] 12.5 mg PO BID 07/24/18 07/24/18 fenofibrate 160 mg PO DAILY 07/24/18 07/24/18 furosemide 60 mg PO DAILY 07/24/18 07/24/18 glipizide 2.5 mg PO DAILY 07/24/18 07/24/18 latanoprost 1 drp OPHTHALMIC (EYE) QPM 07/24/18 07/24/18 methocarbamol 500 mg PO QID 07/24/18 07/24/18 umeclidinium-vilanterol [Anoro 1 inh INHALATION Q24H 07/24/18 07/24/18 Ellipta] Allergies Allergy/AdvReac Type Severity Reaction Status Date / Time Sulfa (Sulfonamide Allergy Mild Nausea/Vomi Verified 12/20/17 20:30 Antibiotics) ting Review of Systems ROS: all other systems reviewed are negative [facility] Medical History Medical History Asthma (Acute) CHF (congestive heart failure) (Acute) Diabetes (Acute) High cholesterol (Acute) Myocardial infarction (Acute) Social History Social History Substance History: No History of Abuse Second Hand Smoke Exposure: No Smoking Status: Never smoker How Often Do You Have a Drink Containing Alcohol: 2 to 4 times a month Recent Travel in [facility] within the Last 8 Weeks: No Recent Out of Country Travel within the Last 8 Weeks: No Immunization History Tetanus Immunization: <5 Years Hx Influenza Vaccine This Season: Yes Exam Narrative Exam Narrative: GENERAL: Well-appearing 72-year-old man, nontoxic, no acute distress. SKIN: Focused skin assessment warm/dry. HEAD: Atraumatic. Normocephalic. EYES: Pupils equal and round. No scleral icterus. No injection or drainage. ENT: No nasal bleeding or discharge. Mucous membranes pink and moist. NECK: Trachea midline. No JVD. CARDIOVASCULAR: Regular rate and rhythm. No murmur appreciated. RESPIRATORY: No accessory muscle use. Clear to auscultation. Breath sounds equal bilaterally. GASTROINTESTINAL: Abdomen soft, non-tender, nondistended. Hepatic and splenic margins not palpable. MUSCULOSKELETAL: There is some chronic lower extremity edema, no pitting. NEUROLOGICAL: Awake and alert. No obvious cranial nerve deficits. Motor grossly within normal limits. Normal speech. PSYCHIATRIC: Appropriate mood and affect; insight and judgment normal. Course Initial Documented Vital Signs Temperature 98.0 F 07/24/18 13:41 Pulse Rate 85 07/24/18 13:41 Respiratory Rate 19 07/24/18 13:41 Blood Pressure 116/75 07/24/18 13:41 Pulse Oximetry 94 L 07/24/18 13:41 Last Documented Vital Signs Temperature 98.0 F 07/24/18 13:41 Pulse Rate 92 H 07/24/18 13:45 Respiratory Rate 18 07/24/18 14:14 Blood Pressure 123/57 L 07/24/18 14:14 Pulse Oximetry 95 07/24/18 14:15 Medical Decision Making [facility] Narrative Medical decision making narrative: 72-year-old man, presents to the emergency department with pleuritic right-sided chest pain shortness of breath. Recent NE in April, but apparently no obstructive lesions found on cath. Was started on Lasix at that time as well, take 60 twice daily. Recent long car ride and now pleuritic right-sided chest pain concerning for PE. Does not look toxic at this point. Will check labs, x-ray, IV fluids, reassess. FINAL: Patient's renal function precludes CT pulmonary angiogram. His BNP is elevated. This could be from heart failure could be from a PE. Think PE is less likely. I spoke with Dr. Portillo, will plan on admission, dry CT given the x -ray reading of possible pneumonia, but does not fit clinically, as well as VQ scan for PE. Will also check bilateral lower extremity Dopplers. Patient worried about being able to lay flat for the VQ given his obesity and sleep apnea. Will also admit for serial cardiac enzymes given the chest pain and recent NE. Medical Screen Exam Complete: Yes Emergency Medical Condition: Yes Lab Data Result diagrams: 07/24/18 14:19 07/24/18 14:19 Lab Results 07/24/18 07/24/18 07/24/18 Range/Units 14:19 14:19 14:19 WBC 6.0 (4.0-11.0) th/mm3 RBC 4.36 L (4.50-5.90) mil/mm3 Hgb 13.1 (13.0-17.0) gm/dL Hct 39.8 (39.0-51.0) % MCV 91.3 (80.0-100.0) fL MCH 30.0 (27.0-34.0) pg MCHC 32.8 (32.0-36.0) % RDW 16.2 (11.6-17.2) % Plt Count 164 (150-450) th/mm3 MPV 10.4 (7.0-11.0) fL Neut % (Auto) 61.1 (16.0-70.0) % Lymph % (Auto) 23.0 (9.0-44.0) % [place] % (Auto) 12.7 H (0.0-8.0) % Eos % (Auto) 2.2 (0.0-4.0) % Baso % (Auto) 1.0 (0.0-2.0) % Neut # (Auto) 3.7 (1.8-7.7) th/mm3 Lymph # (Auto) 1.4 (1.0-4.8) th/mm3 [place] # (Auto) 0.8 (0.0-0.9) th/mm3 Eos # (Auto) 0.1 (0.0-0.4) th/mm3 Baso # (Auto) 0.1 (0.0-0.2) th/mm3 WBC Differential . Differential Comment Auto diff final PT (9.8-11.6) sec INR Ratio APTT (24.3-30.1) sec Sodium 143 (136-145) meq/L Potassium 4.2 (3.5-5.1) meq/L Chloride 105 (98-107) meq/L Carbon Dioxide 29.5 (21.0-32.0) meq/L Anion Gap 9 (5-15) meq/L BUN 40 H (7-18) mg/dL Creatinine 1.94 H (0.60-1.30) mg/dL Estimated GFR 34 L (>89) mL/min Random Glucose 108 H (74-106) mg/dL Calcium 9.2 (8.5-10.1) mg/dL Total Bilirubin 0.7 (0.2-1.0) mg/dL AST 15 (15-37) U/L ALT 13 (12-78) U/L Alkaline Phosphatase 35 L (45-117) U/L Troponin I Less than 0.02 L (0.02-0.05) ng/mL B-Natriuretic Peptide 1491 H (0-100) pg/mL Total Protein 7.3 (6.4-8.2) g/dL Albumin 3.8 (3.4-5.0) g/dL 07/24/18 Range/Units 14:19 WBC (4.0-11.0) th/mm3 RBC (4.50-5.90) mil/mm3 Hgb (13.0-17.0) gm/dL Hct (39.0-51.0) % MCV (80.0-100.0) fL MCH (27.0-34.0) pg MCHC (32.0-36.0) % RDW (11.6-17.2) % Plt Count (150-450) th/mm3 MPV (7.0-11.0) fL Neut % (Auto) (16.0-70.0) % Lymph % (Auto) (9.0-44.0) % [place] % (Auto) (0.0-8.0) % Eos % (Auto) (0.0-4.0) % Baso % (Auto) (0.0-2.0) % Neut # (Auto) (1.8-7.7) th/mm3 Lymph # (Auto) (1.0-4.8) th/mm3 [place] # (Auto) (0.0-0.9) th/mm3 Eos # (Auto) (0.0-0.4) th/mm3 Baso # (Auto) (0.0-0.2) th/mm3 WBC Differential Differential Comment PT 11.5 (9.8-11.6) sec INR 1.1 Ratio APTT 23.4 L (24.3-30.1) sec Sodium (136-145) meq/L Potassium (3.5-5.1) meq/L Chloride (98-107) meq/L Carbon Dioxide (21.0-32.0) meq/L Anion Gap (5-15) meq/L BUN (7-18) mg/dL Creatinine (0.60-1.30) mg/dL Estimated GFR (>89) mL/min Random Glucose (74-106) mg/dL Calcium (8.5-10.1) mg/dL Total Bilirubin (0.2-1.0) mg/dL AST (15-37) U/L ALT (12-78) U/L Alkaline Phosphatase (45-117) U/L Troponin I (0.02-0.05) ng/mL B-Natriuretic Peptide (0-100) pg/mL Total Protein (6.4-8.2) g/dL Albumin (3.4-5.0) g/dL Imaging Data Radiologist's impression: Chest X-Ray 07/24/18 14:11 CONCLUSION: Bibasilar patchy opacities consistent with probable pneumonia. Clinical correlation is recommended. ECG Data EKG Prior to Arrival: Yes Attestation: I personally reviewed and interpreted this ECG as follows: Interpretation: My review of EKG shows normal sinus rhythm is a leftward axis, QRS is a little bit wide at 126, frequent PVCs, no definite evidence of acute ischemia. Discharge Plan Discharge Disposition Patient Disposition: 30 Still Patient Discharge Condition Condition: Stable Physicians Team ED Provider: Caio Paredes Primary Care Provider: Primary Care MirelaiMarisela Rxs /Orders / Referrals /Forms Prescriptions: No Action furosemide 40 mg Tablet 60 mg PO DAILY RF: 0 latanoprost 0.005 % Drops 1 drp OPHTHALMIC (EYE) QPM RF: 0 methocarbamol 500 mg Tablet 500 mg PO QID RF: 0 carvedilol [Coreg] 12.5 mg Tablet 12.5 mg PO BID RF: 0 albuterol sulfate 2.5 mg /3 mL (0.083 %) Solution For Nebulization 2.5 mg INHALATION Q4-6H PRN (Reason: Shortness Of Breath) RF: 0 glipizide 2.5 mg Tablet Extended Release 24hr 2.5 mg PO DAILY RF: 0 aspirin 81 mg Tablet,Chewable 81 mg PO DAILY RF: 0 fenofibrate 160 mg Tablet 160 mg PO DAILY RF: 0 umeclidinium-vilanterol [Anoro Ellipta] 62.5-25 mcg/actuation Blister With Device 1 inh INHALATION Q24H RF: 0 Discharge Instructions Patient Printed Instructions: Chest Pain (ED) Discharge Interventions Interventions: Vital Signs Last Done: 07/24/18 13:45 Status ED Status: With Doctor
[2018-07-24 14:36] LABS: Baso # (Auto) 0.1 th/mm3 (0.0-0.2); Eos # (Auto) 0.1 th/mm3 (0.0-0.4); Eos % (Auto) 2.2 % (0.0-4.0); Hematocrit 39.8 % (39.0-51.0); Hemoglobin 13.1 gm/dL (13.0-17.0); Lymph # (Auto) 1.4 th/mm3 (1.0-4.8); Mean Corpuscular HGB Conc 32.8 % (32.0-36.0); Mean Corpuscular Volume 91.3 fL (80.0-100.0); Mean Platelet Volume 10.4 fL (7.0-11.0); Mono # (Auto) 0.8 th/mm3 (0.0-0.9); Mono % (Auto) 12.7 % (0.0-8.0); Neut # (Auto) 3.7 th/mm3 (1.8-7.7); Neut % (Auto) 61.1 % (16.0-70.0); Platelet Count 164 th/mm3 (150-450); Red Blood Count 4.36 mil/mm3 (4.50-5.90); Red Cell Distribution Width 16.2 % (11.6-17.2)
--- NOTE | 2018-07-24 14:36 | XR ---
EXAM DATE: 07/24/2018 2:32 PM EDT AGE/SEX: 72 years / Male INDICATIONS: Chest pain. CLINICAL DATA: This is the patient's initial encounter. Patient reports that signs and symptoms have been present for 1 day and indicates a pain score of 5/10. MEDICAL/SURGICAL HISTORY: . heart attack, copd None. COMPARISON: [facility], CHEST SINGLE AP, 12/20/2017. . FINDINGS: Bibasilar patchy opacities are noted consistent with probable pneumonia. Clinical correlation is fabiola mmended. The heart is stable. Degenerative changes and scoliosis of the thoracic spine are unchanged. CONCLUSION: Bibasilar patchy opacities consistent with probable pneumonia. Clinical correlation is recommended. Electronically signed by: Giorgio Mota MD 07/24/2018 2:35 PM EDT
[2018-07-24 14:41] LABS: Activated Partial Thrombo Time 23.4 sec (24.3-30.1); INR 1.1 Ratio; Prothrombin Time 11.5 sec (9.8-11.6)
[2018-07-24 14:47] LABS: Alanine Aminotransferase 13 U/L (12-78); Albumin 3.8 g/dL (3.4-5.0); Anion Gap 9 meq/L (5-15); Aspartate Aminotransferase 15 U/L (15-37); Blood Urea Nitrogen 40 mg/dL (7-18); Calcium 9.2 mg/dL (8.5-10.1); Carbon Dioxide 29.5 meq/L (21.0-32.0); Chloride 105 meq/L (98-107); Glomerular Filtration Rate 34 mL/min (>89); Glucose,Random 108 mg/dL (74-106); Potassium 4.2 meq/L (3.5-5.1); Sodium 143 meq/L (136-145)
[2018-07-24 14:52] LABS: Alkaline Phosphatase 35 U/L (45-117); Total Protein 7.3 g/dL (6.4-8.2)
[2018-07-24] MEDS ORDERED: Bisacodyl 10 MG Supp RECTAL PRN (15:52)
[2018-07-24] MEDS ORDERED: Acetaminophen 325 MG Tablet PO PRN (15:52)
[2018-07-24] MEDS ORDERED: Enoxaparin Inj 120 MG/0.8 ML Syringe SQ SCH (17:00)
--- NOTE | 2018-07-24 17:47 | P.HP ---
History of Present Illness Service: Hospitalist Primary Care Physician: No Primary Care Physician Chief Complaint: chest pain History of Present Illness: Mr. Hwang is a pleasant 72-year-old male with a history of hyperlipidemia, diabetes mellitus, COPD, CAD (s/p OK in April) who presents to the emergency department due to increased dyspnea that started 2 days ago. He also complained of right-sided chest discomfort without any radiation or associated nausea/vomiting or diaphoresis. His chest discomfort lasted 20 minutes or so but occurred episodically. He arrived from [place] 2 days ago. He follows up with Dr. Noyola. Patient denies any cough, fever, chills. Denies any changes in bowel or bladder habits. - Diagnosis (1) Chest pain Inpatient Certification: I certify that the inpatient services were ordered in accordance with Medicare regulations governing the order. This includes certification that hospital inpatient services are reasonable and necessary and in the case of services not specified as inpatient-only under 42 CFR 419.22(n), that they are appropriately provided as inpatient services in accordance to with the 2-midnight benchmark under 43 CFR 412.3(e) Estimated Total Length of Stay (Days): 3 Plans for Post Hospital Care: Not yet determined Review of Systems All other systems reviewed negative except as stated in HPI [facility] - History History Provided By: Patient - Medical History Medical History: Medical History (Last Reviewed 07/24/18 @ 17:41 by Cl Portillo DO) Asthma CHF (congestive heart failure) Diabetes High cholesterol Myocardial infarction - Surgical History Surgical History: Surgical History (Last Updated 07/24/18 @ 23:02 by Cl Portillo DO) H/O melanoma excision History of knee surgery Hx of appendectomy - Family History Family History: Family History (Last Updated 07/24/18 @ 23:03 by Cl Portillo DO) Father FH: CABG (coronary artery bypass surgery) Mother Heart disease - Social History I have reviewed the patient's Social History: Yes - Tobacco History Second Hand Smoke Exposure: No Tobacco Use In Past 30 Days: No Smoking Status: Former smoker (Quit smoking in 1983) - Alcohol History How Often Do You Have a Drink Containing Alcohol: 2 to 4 times a month - Substance Use History Substance History: No History of Abuse - Travel History Recent Travel in the [place] Within the Last 8 Weeks: No Recent Travel Out of the Country Within the Last 8 Weeks: No - Immunization History Tetanus Immunization: <5 Years Hx Influenza Vaccine This Season: Yes Medications and Allergies Active Medications: Active Medications Acetaminophen (Tylenol) 650 mg PO Q4H PRN PRN Reason: Headache, fever, pain 1-4 Al Hydroxide/Mg Hydroxide (Milk Of Magnesia Liq) 30 ml PO Q12H PRN PRN Reason: Mild Constipation Bisacodyl (Dulcolax Supp) 10 mg RECTAL DAILY PRN PRN Reason: SEVERE CONSITIPATION Enoxaparin Sodium (Lovenox Inj) 120 mg SQ Q12H LAISHA Lactulose (Lactulose Liq) 30 ml PO DAILY PRN PRN Reason: SEVERE CONSITIPATION Ondansetron HCl (Zofran Inj) 4 mg IV.PUSH Q6H PRN PRN Reason: NAUSEA OR VOMITING Sennosides (Senokot) 17.2 mg PO Q12H PRN PRN Reason: Moderate Constipation Sodium Chloride (Ns Flush) 2 ml IV.FLUSH UNSCH PRN PRN Reason: FLUSH AFTER USING IV ACCESS Allergies Allergy/AdvReac Type Severity Reaction Status Date / Time Sulfa (Sulfonamide Allergy Mild Nausea/Vomi Verified 12/20/17 20:30 Antibiotics) ting Home Medications Medication Instructions Recorded Confirmed Type albuterol sulfate 2.5 mg INHALATION Q4-6H PRN 07/24/18 07/24/18 History aspirin 81 mg PO DAILY 07/24/18 07/24/18 History carvedilol [Coreg] 12.5 mg PO BID 07/24/18 07/24/18 History fenofibrate 160 mg PO DAILY 07/24/18 07/24/18 History furosemide 60 mg PO DAILY 07/24/18 07/24/18 History glipizide 2.5 mg PO DAILY 07/24/18 07/24/18 History latanoprost 1 drp OPHTHALMIC (EYE) QPM 07/24/18 07/24/18 History methocarbamol 500 mg PO QID 07/24/18 07/24/18 History umeclidinium-vilanterol [Anoro 1 inh INHALATION Q24H 07/24/18 07/24/18 History Ellipta] Exam Vital signs: Vital Signs 07/24/18 13:41 07/24/18 13:45 07/24/18 14:14 Temperature 98.0 F Pulse Rate 85 92 H Respiratory Rate 19 18 18 Blood Pressure 116/75 120/59 L 123/57 L Pulse Oximetry 94 L 94 L 95 07/24/18 14:15 07/24/18 16:34 Temperature Pulse Rate 84 Respiratory Rate 18 Blood Pressure 132/78 Pulse Oximetry 95 98 Intake & Output 07/23/18 07/24/18 07/24/18 18:59 06:59 18:59 Weight 122.016 kg Narrative: GENERAL: This is a well-nourished, well-developed patient, in no apparent distress. SKIN: No rashes, ecchymoses or lesions. Warm and dry. HEAD: Atraumatic. Normocephalic. No temporal or scalp tenderness. EYES: Pupils equal round and reactive. No injection or drainage. ENT: Nose without bleeding, purulent drainage or septal hematoma. Airway patent. NECK: Trachea midline. No lymphadenopathy. Supple, nontender, no meningeal signs. CARDIOVASCULAR: Regular rate and rhythm without murmurs, gallops, or rubs. No JVD. RESPIRATORY: Clear to auscultation. Breath sounds equal bilaterally. No wheezes , rales, or rhonchi. GASTROINTESTINAL: Abdomen soft, non-tender, nondistended. No guarding. MUSCULOSKELETAL: Extremities without clubbing, cyanosis. 1+ edema in lower extremities. NEUROLOGICAL: Awake and alert. Cranial nerves II through XII intact. No focal neurological deficits. Normal speech. Results - Labs CBC & Chem 7: 07/24/18 14:19 07/24/18 14:19 Labs: Laboratory Results - last 24 hr 07/24/18 07/24/18 07/24/18 14:19 14:19 14:19 WBC 6.0 RBC 4.36 L Hgb 13.1 Hct 39.8 MCV 91.3 MCH 30.0 MCHC 32.8 RDW 16.2 Plt Count 164 MPV 10.4 Neut % (Auto) 61.1 Lymph % (Auto) 23.0 [place] % (Auto) 12.7 H Eos % (Auto) 2.2 Baso % (Auto) 1.0 Neut # (Auto) 3.7 Lymph # (Auto) 1.4 [place] # (Auto) 0.8 Eos # (Auto) 0.1 Baso # (Auto) 0.1 WBC Differential . Differential Comment Auto diff final PT INR APTT Sodium 143 Potassium 4.2 Chloride 105 Carbon Dioxide 29.5 Anion Gap 9 BUN 40 H Creatinine 1.94 H Estimated GFR 34 L Random Glucose 108 H Calcium 9.2 Total Bilirubin 0.7 AST 15 ALT 13 Alkaline Phosphatase 35 L Troponin I Less than 0.02 L B-Natriuretic Peptide 1491 H Total Protein 7.3 Albumin 3.8 07/24/18 14:19 WBC RBC Hgb Hct MCV MCH MCHC RDW Plt Count MPV Neut % (Auto) Lymph % (Auto) [place] % (Auto) Eos % (Auto) Baso % (Auto) Neut # (Auto) Lymph # (Auto) [place] # (Auto) Eos # (Auto) Baso # (Auto) WBC Differential Differential Comment PT 11.5 INR 1.1 APTT 23.4 L Sodium Potassium Chloride Carbon Dioxide Anion Gap BUN Creatinine Estimated GFR Random Glucose Calcium Total Bilirubin AST ALT Alkaline Phosphatase Troponin I B-Natriuretic Peptide Total Protein Albumin - Imaging Impressions Chest X-Ray 07/24/18 14:11 CONCLUSION: Bibasilar patchy opacities consistent with probable pneumonia. Clinical correlation is recommended. Caprini VTE Risk Assessment Caprini VTE Risk Assessment: Moderate/High Risk (score >= 2) Caprini Risk Assessment Model: Point Value = 1 Point Value = 2 Point Value = 3 Point Value = 5 Age 41-60 Minor surgery BMI > 25 kg/m2 Swollen legs Varicose veins or History of unexplained or recurrent spontaneous Oral contraceptives or hormone replacement Sepsis (< 1 month) Serious lung disease, including pneumonia (< 1 month) Abnormal pulmonary function Acute myocardial infarction Congestive heart failure (< 1 month) History of inflammatory bowel disease Medical patient at bed rest Age 61-74 Arthroscopic surgery Major open surgery (> 45 min) Laparoscopic surgery (> 45 min) Malignancy Confined to bed (> 72 hours) Immobilizing plaster cast Central venous access Age >= 75 History of VTE Family history of VTE Factor V Leiden Prothrombin 31700C Lupus anticoagulant Anticardiolipin antibodies Elevated serum homocysteine Heparin-induced thrombocytopenia Other congenital or acquired thrombophilia Stroke (< 1 month) Elective arthroplasty Hip, pelvis, or leg fracture Acute spinal cord injury (< 1 month) Prophylaxis Regimen: Total Risk Factor Score Risk Level Prophylaxis Regimen 0-1 Low Early ambulation 2 Moderate Order ONE of the following: *Sequential Compression Device (SCD) *Heparin 5000 units SQ BID 3-4 Higher Order ONE of the following medications: *Heparin 5000 units SQ TID *Enoxaparin/Lovenox 40 mg SQ daily (WT < 150 kg, CrCl > 30 mL/min) *Enoxaparin/Lovenox 30 mg SQ daily (WT < 150 kg, CrCl > 10-29 mL/min) *Enoxaparin/Lovenox 30 mg SQ BID (WT < 150 kg, CrCl > 30 mL/min) AND/OR *Sequential Compression Device (SCD) 5 or more Highest Order ONE of the following medications: *Heparin 5000 units SQ TID (Preferred with Epidurals) *Enoxaparin/Lovenox 40 mg SQ daily (WT < 150 kg, CrCl > 30 mL/min) *Enoxaparin/Lovenox 30 mg SQ daily (WT < 150 kg, CrCl > 10-29 mL/min) *Enoxaparin/Lovenox 30 mg SQ BID (WT < 150 kg, CrCl > 30 mL/min) AND *Sequential Compression Device (SCD) Assessment and Plan - Assessment (1) Chest pain Code(s): R07.9 - Chest pain, unspecified Status: Acute - Plan Mr. Hwang is a 72-year-old male with a history of COPD, CAD, hyperlipidemia who presents to the emergency department due to 2 day duration of right-sided chest pain as well as dyspnea. Chest pain -We will obtain troponins 2 more times to rule out ACS. -VQ scan pending to rule out pulmonary embolism. Well's score is low. -Due to possibility of ACS, PE will initiate Lovenox 1 mg/kg for now. -If VQ scan indicates low risk and ACS is ruled out, discontinue Lovenox full dose. Probable acute exacerbation of Congestive heart failure - unknown whether it is systolic or diastolic - BNP is elevated to 1491. BNP was 73 in November 2017. - Patient's symptoms are likely due to CHF. Will obtain an Echo study. - Will start patient on Lasix 40mg IV BID. - Repeat BMP in the AM. - Consult Cardiology (Dr. Noyola). Probable community-acquired pneumonia -No leukocytosis or cough. However chest x-ray is indicative of possible pneumonia. -We will start patient on Levaquin 750 mg every 48 hours total 3 doses. Acute kidney injury - Last creatinine on 12/22/2017 was 1.0 - On admission, creatinine 1.94. - could be related to poor perfusion due to CHF. - If it does not improve, consider nephrology consultation. Full code. Lovenox 120mg BID.
--- NOTE | 2018-07-24 18:32 | NM ---
EXAM DATE: 07/24/2018 6:12 PM EDT AGE/SEX: 72 years / Male INDICATIONS: Dyspnea and chest pain. CLINICAL DATA: This is the patient's initial encounter. Patient reports that signs and symptoms have been present for 1 day and indicates a pain score of 0/10. MEDICAL/SURGICAL HISTORY: Asthma. Congestive heart failure. Diabetes mellitus type II. None. COMPARISON: [facility], CHEST 1V SINGLE AP, 07/24/2018. . DOSE: 1.1 mCi Tc99m DTPA aerosol 8.1 mCi Tc99m MAA IV TECHNIQUE: Following five minutes of tidal breathing of DTPA aerosol, planar images of the lungs wer e performed in eight projections. The patient was then injected with MAA, and eight-view perfusion s can was performed. FINDINGS: Ventilation is somewhat patchy in appearance. On the perfusion images there is some extrinsic defect from an enlarged heart. Minimal blunting of the costophrenic angles. No definite segmental perfusion defect. CONCLUSION: 1. Low probability for pulmonary embolus. Electronically signed by: Brian Clay MD 07/24/2018 6:31 PM EDT
--- NOTE | 2018-07-24 19:35 | CT ---
EXAM DATE: 07/24/2018 6:53 PM EDT AGE/SEX: 72 years / Male INDICATIONS: Right sided chest pain with shortness of breath. CLINICAL DATA: This is the patient's initial encounter. Patient reports that signs and symptoms have been present for 2 days and indicates a pain score of 6/10. MEDICAL/SURGICAL HISTORY: Diabetes. Chronic obstructive pulmonary disease. Congestive heart failu re. None. RADIATION DOSE: 20.00 CTDI (mGy) COMPARISON: [facility], CT PULMONARY ANGIOGRAM, 12/21/2017. . TECHNIQUE: Multiple contiguous axial images were obtained through the chest without contrast. Image s were obtained in suspended respiration using multiple row detector helical technique. Using automa jl exposure control and adjustment of the mA and/or kV according to patient size, radiation dose was kept as low as reasonably achievable to obtain optimal diagnostic quality images. DICOM format imag e data is available electronically for review and comparison. FINDINGS: Mild dependent atelectasis at the lung bases. No consolidation. Trace pleural fluid bilaterally. No p ericardial fluid. No pathologically enlarged hilar, mediastinal or axillary lymph nodes. Moderate coronary calcificatio ns. No acute findings in the upper abdomen. Scoliosis. CONCLUSION: 1. Trace pleural fluid. No consolidation. No pneumothorax. 2. Mild emphysema. Moderate coronary calcifications. Cardiomegaly. No acute bony abnormality. Electronically signed by: Brian Clay MD 07/24/2018 7:33 PM EDT
--- NOTE | 2018-07-24 19:35 | US ---
EXAM DATE: 07/24/2018 7:00 PM EDT AGE/SEX: 72 years / Male INDICATIONS: Bilateral leg edema. CLINICAL DATA: This is the patient's initial encounter. Patient reports that signs and symptoms have been present for 2 days and indicates a pain score of 0/10. MEDICAL/SURGICAL HISTORY: Asthma. Congestive heart failure. Diabetes. Myocardial infarction. Hyperlipidemia. Sleep apnea. Coronary artery disease. COPD. . Cardiac catheterization. COMPARISON: [facility], US LEG RIGHT VENOUS DOPPLER, 12/14/2017. . TECHNIQUE: Venous ultrasound of both lower extremities was performed from the inguinal ligament to t he proximal calf. Real-time, color Doppler and spectral tracing, compression and augmentation techni ques were used. FINDINGS: Right Leg: Normal compression of the deep venous system from the inguinal region to the proximal aminta f. No echogenic clot is seen. Normal response of the venous system to augmentation and respiration. Left Leg: Normal compression of the deep venous system from the inguinal region to the proximal calf . No echogenic clot is seen. Normal response of the venous system to augmentation and respiration. Other: None. CONCLUSION: 1. The study is negative for bilateral lower extremity deep venous thrombosis. Electronically signed by: Brian Clay MD 07/24/2018 7:34 PM EDT
[2018-07-24] MEDS: levoFLOXacin 750 MG Tablet PO SCH (20:31)
[2018-07-24] MEDS ORDERED: Furosemide 40 MG Tablet PO SCH (22:33)
[2018-07-24] MEDS ORDERED: Dextrose 50% in Water 50 ML Vial IV.PUSH PRN (22:35)
[2018-07-24] MEDS: Carvedilol 12.5 MG Tablet PO SCH (22:58)
[2018-07-25] MEDS ORDERED: Zolpidem Tartrate 5 MG Tablet PO PRN (00:46)
--- NOTE | 2018-07-25 03:10 | MB ---
cc: Colton Worthington DO DATE: 07/24/2018 REASON FOR CONSULTATION: Chest pain, congestive heart failure. HISTORY OF PRESENT ILLNESS: Gonzales Hwang is a pleasant 72-year-old male who saw my partner, Dr. Noyola, for the first time this morning, actually. He previously was in [place] and during that time had multiple hospitalizations. In 04/2018, he was diagnosed with pneumonia and was found to have an elevated troponin. He underwent a cardiac catheterization, which showed mild luminal irregularities, but no significant disease. He did have an elevated LVEDP at 41. He also had an echocardiogram, which showed normal function, trace aortic regurgitation and mild mitral regurgitation. He and his drove down from [place] 2 days ago and the trip took [address] Noyola, they were running errands and he just felt overall not well. He cannot describe exactly what is going on, but just does not feel up to par. He has had some right-sided chest pain and had this while in [place] at the time of the elevated troponin. He said that the only thing that helps this is Tylenol No. 3 or hydrocodone. He has been watching his weight and states that he is up 2 pounds from his previous hospitalization when in [place]. PAST MEDICAL HISTORY: 1. Asthma. 2. Chronic diastolic heart failure. 3. Mild coronary artery disease. 4. Diabetes. 5. Hyperlipidemia. 6. Myocardial infarction (04/2018, felt to be type 2 in nature). PAST SURGICAL HISTORY: 1. Cardiac catheterization (04/2018 in [place]) with mild coronary artery disease. 2. Melanoma excision. 3. Knee surgery. 4. Appendectomy. ALLERGIES: SULFA. MEDICATIONS: 1. Methocarbamol 500 mg q.i.d. 2. Latanoprost 1 drop every night. 3. Fenofibrate 160 mg daily. 4. Glipizide 2.5 mg daily. 5. Lasix 60 mg daily. 6. Coreg 12.5 mg b.i.d. 7. Aspirin 81 mg daily. 8. Anoro Ellipta 1 inhalation every 24 hours. 9. Albuterol every 4-6 hours as needed. FAMILY HISTORY: Denies premature coronary artery disease or sudden cardiac within the family. SOCIAL HISTORY: The patient is a previous smoker, quitting in 1983. He denies alcohol or drug abuse. REVIEW OF SYSTEMS: Fourteen systems were reviewed including osteopathic. Pertinent positives and negatives above, otherwise negative. PHYSICAL EXAMINATION: VITAL SIGNS: Temperature 98.0, heart rate 84, blood pressure 132/78, respirations 18, pulse oximetry 98% on 2 liters. GENERAL: The patient appears well, in no acute distress. Alert, awake and oriented x3. HEENT: Extraocular muscles intact. Mucous membranes moist. NECK: Supple. Minimal JVD noted bilaterally. Carotid upstroke is brisk in nature. HEART: Regular rate and rhythm. Positive first and second sounds with a 1/6 systolic murmur noted at the apex. LUNGS: Decreased breath sounds bilaterally, but no overt wheezes, rales or rhonchi. ABDOMEN: Soft, nontender, nondistended. No organomegaly noted. EXTREMITIES: Have 1 plus pitting edema with chronic changes. NEUROLOGIC: No focal deficits. SKIN: Warm, dry and intact. OSTEOPATHIC: Lordosis, but no kyphoscoliosis or paraspinal tender points. LABORATORY DATA: Hemoglobin 13.1, hematocrit 39.8, platelets 164. Potassium 4.2, BUN 40, creatinine 1.94. Troponin negative x2. Electrocardiogram (07/24/2018 at 13:57): Sinus rhythm, first degree AV block, PVCs, interventricular conduction delay. IMPRESSION: 1. Noncardiac chest pain. 2. Mild coronary artery disease by cardiac catheterization (04/2018). 3. Chronic diastolic heart failure with a previous LVEDP of 41 (04/2018). 4. Asthma. 5. Recent pneumonia. 6. Acute kidney injury. RECOMMENDATIONS: 1. Mr. Hwang presented with right-sided chest pain, which appears to be similar to what he had in April. At that time, he was found to have no significant coronary artery disease and this may be due to musculoskeletal pain versus elevated LVEDP. 2. He did have a significant elevated LVEDP of 40 and an echo showing a normal ejection fraction. He has been diagnosed with chronic diastolic heart failure. 3. His weight is up 2 pounds since his previous hospitalization and CT shows minimal pleural fluid. We will plan on diuresing him and he may do better with either torsemide or Bumex upon discharge. 4. I discussed with him watching the amount of salt intake that he has, as this will further exacerbate his congestive heart failure state. 5. Further recommendations will be made based on the hospital course. Thank you for allowing me to see Gonzales Hwang. If there are any questions, please do not hesitate to call. Colton Worthington DO VGP/rw , 12:14 AM , 12:28 AM
[2018-07-25 04:18] LABS: Baso # (Auto) 0.1 th/mm3 (0.0-0.2); Baso % (Auto) 1.2 % (0.0-2.0); Eos # (Auto) 0.2 th/mm3 (0.0-0.4); Eos % (Auto) 2.4 % (0.0-4.0); Hematocrit 35.7 % (39.0-51.0); Hemoglobin 11.8 gm/dL (13.0-17.0); Lymph # (Auto) 1.5 th/mm3 (1.0-4.8); Lymph % (Auto) 21.5 % (9.0-44.0); Mean Corpuscular HGB Conc 33.2 % (32.0-36.0); Mean Corpuscular Hemoglobin 29.8 pg (27.0-34.0); Mean Corpuscular Volume 89.9 fL (80.0-100.0); Mean Platelet Volume 10.4 fL (7.0-11.0); Mono # (Auto) 1.1 th/mm3 (0.0-0.9); Mono % (Auto) 14.9 % (0.0-8.0); Neut # (Auto) 4.3 th/mm3 (1.8-7.7); Platelet Count 157 th/mm3 (150-450); Red Blood Count 3.97 mil/mm3 (4.50-5.90); Red Cell Distribution Width 15.7 % (11.6-17.2); White Blood Count 7.1 th/mm3 (4.0-11.0)
[2018-07-25 04:32] LABS: Calcium 8.6 mg/dL (8.5-10.1); Carbon Dioxide 28.6 meq/L (21.0-32.0); Potassium 3.8 meq/L (3.5-5.1)
[2018-07-25] MEDS ORDERED: Potassium Chloride 25 MEQ Effervescent Tablet PO ONE (04:42)
[2018-07-25] MEDS: Insulin NovoLOG Aspart Correctional Sugar Inj SQ SCH ×4 (07:51→21:00)
[2018-07-25] MEDS: Umeclindinium 62.5 MCG/Vilanterol 25 MCG Inhaler INH SCH (08:26)
[2018-07-25] MEDS: glipiZIDE 5 MG Tablet PO SCH (08:27)
[2018-07-25] MEDS: Methocarbamol 500 MG Tablet PO SCH ×4 (08:28→21:27)
[2018-07-25] MEDS: Fenofibrate 145 MG Tablet PO SCH (08:28)
[2018-07-25] MEDS: Carvedilol 12.5 MG Tablet PO SCH ×2 (08:28→21:27)
[2018-07-25] MEDS: Enoxaparin Inj 40 MG/0.4 ML Syringe SQ SCH (08:29)
--- NOTE | 2018-07-25 13:59 | P.PNCA ---
Subjective Interval history: Overall feeling mildly better Less SOB Medications and Allergies Active Medications: Active Medications Acetaminophen (Tylenol) 650 mg PO Q4H PRN PRN Reason: Headache, fever, pain 1-4 Al Hydroxide/Mg Hydroxide (Milk Of Magnesia Liq) 30 ml PO Q12H PRN PRN Reason: Mild Constipation Albuterol (Duoneb Neb (Prn)) 1 ampul NEB Q4HR NEB PRN PRN Reason: DYSPNEA Last Admin: 07/25/18 05:42 Dose: 1 ampul Aspirin (Aspirin Chew) 81 mg PO DAILY [facility] Last Admin: 07/25/18 08:28 Dose: 81 mg Bisacodyl (Dulcolax Supp) 10 mg RECTAL DAILY PRN PRN Reason: SEVERE CONSITIPATION Carvedilol (Coreg) 12.5 mg PO BID [facility] Last Admin: 07/25/18 08:28 Dose: 12.5 mg Dextrose (D50w Vial) 50 ml IV.PUSH UNSCH PRN PRN Reason: PER HYPOGLYCEMIA PROTOCOL Enoxaparin Sodium (Lovenox Inj) 40 mg SQ DAILY [facility] Last Admin: 07/25/18 08:29 Dose: 40 mg Fenofibrate (Tricor) 145 mg PO DAILY [facility] Last Admin: 07/25/18 08:28 Dose: 145 mg Furosemide (Lasix Inj) 40 mg IV.PUSH BID@0900,1800 [facility] Last Admin: 07/25/18 08:27 Dose: 40 mg Glipizide (Glucotrol) 2.5 mg PO DAILY [facility] Last Admin: 07/25/18 08:27 Dose: 2.5 mg Glucagon (Glucagon Inj) 1 mg OTHER PRN PRN PRN Reason: for Hypoglycemia Protocol Insulin Aspart (Novolog Insulin Correctional Sugar Inj) 0 unit SQ [facility]; Protocol Last Admin: 07/25/18 13:05 Dose: 1 unit Lactulose (Lactulose Liq) 30 ml PO DAILY PRN PRN Reason: SEVERE CONSITIPATION Latanoprost (Xalatan 0.005% Opth Drops) 1 drop EACH EYE QPM [facility] Levofloxacin (Levaquin) 750 mg PO Q48H [facility] Stop: 07/28/18 18:01 Last Admin: 07/24/18 20:31 Dose: 750 mg Methocarbamol (Robaxin) 500 mg PO QID [facility] Last Admin: 07/25/18 13:05 Dose: 500 mg Ondansetron HCl (Zofran Inj) 4 mg IV.PUSH Q6H PRN PRN Reason: NAUSEA OR VOMITING Sennosides (Senokot) 17.2 mg PO Q12H PRN PRN Reason: Moderate Constipation Last Admin: 07/25/18 08:36 Dose: 17.2 mg Sodium Chloride (Ns Flush) 2 ml IV.FLUSH UNSCH PRN PRN Reason: FLUSH AFTER USING IV ACCESS Umeclidinium/Vilanterol (Anoro-Ellipta 62.5/25 Mcg Inh) 1 puff INH Q24H [facility] Last Admin: 07/25/18 08:26 Dose: 1 puff Zolpidem Tartrate (Ambien) 5 mg PO HS PRN PRN Reason: INSOMNIA Last Admin: 07/25/18 00:57 Dose: 5 mg Allergies Allergy/AdvReac Type Severity Reaction Status Date / Time Sulfa (Sulfonamide Allergy Mild Nausea/Vomi Verified 12/20/17 20:30 Antibiotics) ting Home Medications Medication Instructions Recorded Confirmed Type albuterol sulfate 2.5 mg INHALATION Q4-6H PRN 07/24/18 07/24/18 History aspirin 81 mg PO DAILY 07/24/18 07/24/18 History carvedilol [Coreg] 12.5 mg PO BID 07/24/18 07/24/18 History fenofibrate 160 mg PO DAILY 07/24/18 07/24/18 History furosemide 60 mg PO DAILY 07/24/18 07/24/18 History glipizide 2.5 mg PO DAILY 07/24/18 07/24/18 History latanoprost 1 drp OPHTHALMIC (EYE) QPM 07/24/18 07/24/18 History methocarbamol 500 mg PO QID 07/24/18 07/24/18 History umeclidinium-vilanterol [Anoro 1 inh INHALATION Q24H 07/24/18 07/24/18 History Ellipta] Physical Exam Vital signs: Vital Signs 07/24/18 14:14 07/24/18 14:15 07/24/18 16:34 Temperature Pulse Rate 84 Respiratory Rate 18 18 Blood Pressure 123/57 L 132/78 Pulse Oximetry 95 95 98 07/24/18 20:00 07/24/18 23:42 07/25/18 00:00 Temperature 98.2 F 98.4 F Pulse Rate 86 75 Respiratory Rate 18 18 Blood Pressure 111/56 L 99/58 L Pulse Oximetry 91 L 90 L 97 07/25/18 04:00 07/25/18 05:42 07/25/18 08:00 Temperature 98 F 97.8 F Pulse Rate 72 67 84 Respiratory Rate 18 15 20 Blood Pressure 154/61 H 118/56 L Pulse Oximetry 96 96 07/25/18 13:07 Temperature Pulse Rate Respiratory Rate Blood Pressure Pulse Oximetry 93 L Intake & Output 07/24/18 07/25/18 07/25/18 18:59 06:59 18:59 Intake Total 480 / 480 Output Total 650 / 650 Balance -170 / -170 Weight 122.016 kg 122 kg Intake: Oral 480 / 480 Output: Urine 650 / 650 Other: # Voids 2 Weight On Admission 122 kg Narrative: GENERAL: NAD, AAOx3 SKIN: Warm and dry. HEAD: Atraumatic. Normocephalic. EYES: Pupils equal and round. No scleral icterus. No injection or drainage. ENT: No nasal bleeding or discharge. Mucous membranes pink and moist. NECK: Trachea midline. No JVD. CARDIOVASCULAR: Regular rate and rhythm. RESPIRATORY: No accessory muscle use. Decreased breath sounds bilaterally GASTROINTESTINAL: Abdomen soft, non-tender, nondistended. Hepatic and splenic margins not palpable. MUSCULOSKELETAL: Extremities with 1+ edema. No obvious deformities. NEUROLOGICAL: Awake and alert. No obvious cranial nerve deficits. Motor grossly within normal limits. Five out of 5 muscle strength in the arms and legs. Normal speech. PSYCHIATRIC: Appropriate mood and affect; insight and judgment normal. Results 07/25/18 03:42 07/25/18 03:42 Cardiac Enzymes 07/24/18 07/24/18 07/24/18 Range/Units 14:19 14:19 21:55 AST 15 (15-37) U/L Troponin I Less than 0.02 L Less than 0.02 L (0.02-0.05) ng/mL B-Natriuretic Peptide 1491 H (0-100) pg/mL 07/25/18 Range/Units 03:42 AST (15-37) U/L Troponin I Less than 0.02 L (0.02-0.05) ng/mL B-Natriuretic Peptide (0-100) pg/mL Coagulation 07/24/18 07/24/18 Range/Units 14:19 14:19 PT 11.5 (9.8-11.6) sec APTT 23.4 L (24.3-30.1) sec B-Natriuretic Peptide 1491 H (0-100) pg/mL CBC 07/24/18 07/25/18 Range/Units 14:19 03:42 WBC 6.0 7.1 (4.0-11.0) th/mm3 RBC 4.36 L 3.97 L (4.50-5.90) mil/mm3 Hgb 13.1 11.8 L (13.0-17.0) gm/dL Hct 39.8 35.7 L (39.0-51.0) % Plt Count 164 157 (150-450) th/mm3 Neut # (Auto) 3.7 4.3 (1.8-7.7) th/mm3 Lymph # (Auto) 1.4 1.5 (1.0-4.8) th/mm3 [place] # (Auto) 0.8 1.1 H (0.0-0.9) th/mm3 Eos # (Auto) 0.1 0.2 (0.0-0.4) th/mm3 Baso # (Auto) 0.1 0.1 (0.0-0.2) th/mm3 Comprehensive Metabolic Panel 07/24/18 07/25/18 Range/Units 14:19 03:42 Sodium 143 145 (136-145) meq/L Potassium 4.2 3.8 (3.5-5.1) meq/L Chloride 105 106 (98-107) meq/L Carbon Dioxide 29.5 28.6 (21.0-32.0) meq/L BUN 40 H 37 H (7-18) mg/dL Creatinine 1.94 H 1.76 H (0.60-1.30) mg/dL Calcium 9.2 8.6 (8.5-10.1) mg/dL AST 15 (15-37) U/L ALT 13 (12-78) U/L Alkaline Phosphatase 35 L (45-117) U/L Total Protein 7.3 (6.4-8.2) g/dL Albumin 3.8 (3.4-5.0) g/dL Intake and Output 0907/25/18 07/25/18 22:59 06:59 14:59 Intake Total 480 / 480 Output Total 650 / 650 Balance -170 / -170 Intake: Oral 480 / 480 Output: Urine 650 / 650 Other: # Voids 2 Weight 122 kg 122 kg Weight On Admission 122 kg - Imaging and Cardiology Imaging: Impressions Chest X-Ray 07/24/18 14:11 CONCLUSION: Bibasilar patchy opacities consistent with probable pneumonia. Clinical correlation is recommended. Chest CT 07/24/18 14:54 CONCLUSION: 1. Trace pleural fluid. No consolidation. No pneumothorax. 2. Mild emphysema. Moderate coronary calcifications. Cardiomegaly. No acute bony abnormality. Pulmonary Perfusion Imaging 07/24/18 14:54 CONCLUSION: 1. Low probability for pulmonary embolus. Venous Doppler Study 07/24/18 15:09 CONCLUSION: 1. The study is negative for bilateral lower extremity deep venous thrombosis. Assessment and Plan - Assessment (1) SOB (shortness of breath) Code(s): R06.02 - Shortness of breath Status: Acute (2) Chronic diastolic heart failure Code(s): I50.32 - Chronic diastolic (congestive) heart failure Status: Acute (3) Mild coronary artery disease Code(s): I25.10 - Atherosclerotic heart disease of [place] coronary artery without angina pectoris Status: Acute (4) Chest pain Code(s): R07.9 - Chest pain, unspecified Status: Acute - Plan 1) Right sided chest pain Musculoskeletal in nature Relieve by pain meds 2) Acute on chronic diastolic heart failure May be due to dietary salt intake Earlier this week at a steak while out, seasoned heavily Con't diuresis Most likely discharge on Demadex for better effect Discussed avoiding salt Watches weights at home Previous cath having elevated LVEDP of 40 3) Mild CAD by cath No further workup necessary at this time
--- NOTE | 2018-07-25 14:14 | ECG ---
Date Performed: 07/24/2018 Time Performed: 21:18:55 PTAGE: 72 years EKG: Sinus rhythm WITH FREQUENT VENTRICULAR PREMATURE COMPLEXES IN A BIGEMINAL PATTERN MARKED LEFT AXIS DEVIATION SEPT AL MYOCARDIAL INFARCTION , OF INDETERMINATE AGE ABNORMAL ECG PREVIOUS TRACING : 07/24/2018 13.57 Since the previous tracing, no significant change noted PVC 's continued , there is also a left anterior hemiblock. DOCTOR: Roopa Cox Interpretating Date/Time 07/25/2018 14:13:40
--- NOTE | 2018-07-25 14:14 | ECG ---
Date Performed: 07/24/2018 Time Performed: 13:57:51 PTAGE: 72 years EKG: Sinus rhythm WITH FIRST DEGREE AV BLOCK WITH FREQUENT VENTRICULAR PREMATURE COMPLEXES MARKED LEFT AXIS DEVIATION MODERATE INTRAVENTRICULAR CONDUCTION DELAY ABNORMAL ECG PREVIOUS TRACING :12/20/2017 @08.32 Compared to previous tracing, there are now continued PVC's . DOCTOR: Roopa Cox Interpretating Date/Time 07/25/2018 14:12:31
--- NOTE | 2018-07-25 14:21 | P.PNIM ---
Subjective Interval history: Patient complains of shortness of breath on exertion. He was having difficulty last night when lying flat. He also has a cough. Physical Exam Vital signs: Vital Signs 07/24/18 16:34 07/24/18 20:00 07/24/18 23:42 Temperature 98.2 F Pulse Rate 84 86 Respiratory Rate 18 18 Blood Pressure 132/78 111/56 L Pulse Oximetry 98 91 L 90 L 07/25/18 00:00 07/25/18 04:00 07/25/18 05:42 Temperature 98.4 F 98 F Pulse Rate 75 72 67 Respiratory Rate 18 18 15 Blood Pressure 99/58 L 154/61 H Pulse Oximetry 97 96 07/25/18 08:00 07/25/18 13:07 07/25/18 13:58 Temperature 97.8 F Pulse Rate 84 62 Respiratory Rate 20 16 Blood Pressure 118/56 L Pulse Oximetry 96 93 L Intake & Output 07/24/18 07/25/18 07/25/18 18:59 06:59 18:59 Intake Total 480 / 480 Output Total 650 / 650 Balance -170 / -170 Weight 122.016 kg 122 kg Intake: Oral 480 / 480 Output: Urine 650 / 650 Other: # Voids 2 Weight On Admission 122 kg Narrative: General patient in no acute distress HEENT extraocular movements are intact, clear oropharyngeal mucosa, no JVD Cardiovascular S1-S2 audible, RRR Respiratory bibasilar crackles Abdomen soft, nontender, nondistended, normal bowel sounds Extremities 2+ pitting edema bilateral lower extremities up to knees Neuro patient moves all 4 extremities, sensation is intact bilaterally Results - Labs CBC & Chem 7: 07/25/18 03:42 07/25/18 03:42 Laboratory Results - last 24 hr 07/24/18 07/24/18 07/24/18 14:19 14:19 14:19 WBC 6.0 RBC 4.36 L Hgb 13.1 Hct 39.8 MCV 91.3 MCH 30.0 MCHC 32.8 RDW 16.2 Plt Count 164 MPV 10.4 Neut % (Auto) 61.1 Lymph % (Auto) 23.0 [place] % (Auto) 12.7 H Eos % (Auto) 2.2 Baso % (Auto) 1.0 Neut # (Auto) 3.7 Lymph # (Auto) 1.4 [place] # (Auto) 0.8 Eos # (Auto) 0.1 Baso # (Auto) 0.1 WBC Differential . Differential Comment Auto diff final PT INR APTT Sodium 143 Potassium 4.2 Chloride 105 Carbon Dioxide 29.5 Anion Gap 9 BUN 40 H Creatinine 1.94 H Estimated GFR 34 L POC Glucose Random Glucose 108 H Calcium 9.2 Magnesium Total Bilirubin 0.7 AST 15 ALT 13 Alkaline Phosphatase 35 L Troponin I Less than 0.02 L B-Natriuretic Peptide 1491 H Total Protein 7.3 Albumin 3.8 07/24/18 07/24/18 07/25/18 14:19 21:55 03:42 WBC RBC Hgb Hct MCV MCH MCHC RDW Plt Count MPV Neut % (Auto) Lymph % (Auto) [place] % (Auto) Eos % (Auto) Baso % (Auto) Neut # (Auto) Lymph # (Auto) [place] # (Auto) Eos # (Auto) Baso # (Auto) WBC Differential Differential Comment PT 11.5 INR 1.1 APTT 23.4 L Sodium Potassium Chloride Carbon Dioxide Anion Gap BUN Creatinine Estimated GFR POC Glucose Random Glucose Calcium Magnesium Total Bilirubin AST ALT Alkaline Phosphatase Troponin I Less than 0.02 L Less than 0.02 L B-Natriuretic Peptide Total Protein Albumin 07/25/18 07/25/18 07/25/18 03:42 03:42 03:42 WBC 7.1 RBC 3.97 L Hgb 11.8 L Hct 35.7 L MCV 89.9 MCH 29.8 MCHC 33.2 RDW 15.7 Plt Count 157 MPV 10.4 Neut % (Auto) 60.0 Lymph % (Auto) 21.5 [place] % (Auto) 14.9 H Eos % (Auto) 2.4 Baso % (Auto) 1.2 Neut # (Auto) 4.3 Lymph # (Auto) 1.5 [place] # (Auto) 1.1 H Eos # (Auto) 0.2 Baso # (Auto) 0.1 WBC Differential . Differential Comment Auto diff final PT INR APTT Sodium 145 Potassium 3.8 Chloride 106 Carbon Dioxide 28.6 Anion Gap 10 BUN 37 H Creatinine 1.76 H Estimated GFR 38 L POC Glucose Random Glucose 93 Calcium 8.6 Magnesium 2.3 Total Bilirubin AST ALT Alkaline Phosphatase Troponin I B-Natriuretic Peptide Total Protein Albumin 07/25/18 07/25/18 07:41 12:30 WBC RBC Hgb Hct MCV MCH MCHC RDW Plt Count MPV Neut % (Auto) Lymph % (Auto) [place] % (Auto) Eos % (Auto) Baso % (Auto) Neut # (Auto) Lymph # (Auto) [place] # (Auto) Eos # (Auto) Baso # (Auto) WBC Differential Differential Comment PT INR APTT Sodium Potassium Chloride Carbon Dioxide Anion Gap BUN Creatinine Estimated GFR POC Glucose 121 H 168 H Random Glucose Calcium Magnesium Total Bilirubin AST ALT Alkaline Phosphatase Troponin I B-Natriuretic Peptide Total Protein Albumin - Imaging Impressions Chest X-Ray 07/24/18 14:11 CONCLUSION: Bibasilar patchy opacities consistent with probable pneumonia. Clinical correlation is recommended. Chest CT 07/24/18 14:54 CONCLUSION: 1. Trace pleural fluid. No consolidation. No pneumothorax. 2. Mild emphysema. Moderate coronary calcifications. Cardiomegaly. No acute bony abnormality. Pulmonary Perfusion Imaging 07/24/18 14:54 CONCLUSION: 1. Low probability for pulmonary embolus. Venous Doppler Study 07/24/18 15:09 CONCLUSION: 1. The study is negative for bilateral lower extremity deep venous thrombosis. Assessment and Plan - Assessment (1) Chest pain Code(s): R07.9 - Chest pain, unspecified Status: Acute - Plan This patient is a 72-year-old male with a diagnosis of coronary artery disease status post OR in April 2018. The patient also has dyslipidemia, COPD and an extensive tobacco smoking history and is on 3 L of supplemental oxygen at baseline. The patient is a CPAP at night. He presented to our emergency department with complaints of chest pain and shortness of breath. 1. Chest pain concern for ACS. 3 sets of troponins are negative. EKG does not show any findings concerning with acute OR. VQ scan indicates low risk of PE. Chest imaging shows findings consistent with pneumonia. The patient's chest pain is likely secondary to congestive heart failure exacerbation and pneumonia. Continue aspirin, beta- michael. 2. CHF exacerbation He has complaints of dyspnea on exertion. As per the patient he does not follow a fluid restriction. 2D echocardiogram has been ordered and is pending, his ejection fraction is unknown and I cannot find any previous echocardiograms to document his ejection fraction. BNP is elevated, chest x-ray shows some pulmonary vascular congestion and pneumonia. Continue IV Lasix. Cardiology was consulted and the recommendations will be followed. Continue aspirin, beta- michael. 3. Community-acquired pneumonia Imaging is showing probable pneumonia. The patient does complain of a cough which could possibly be due to the pneumonia or CHF exacerbation. He will be continued on Levaquin for the pneumonia. He is not producing any sputum currently. 4. Acute kidney injury likely secondary to CHF exacerbation Continue IV diuresis. Will follow up in a.m. basic metabolic panel. Lovenox for DVT prophylaxis.
--- NOTE | 2018-07-25 15:33 | ECHRPT ---
Indication: Heart failure, unspecified CONCLUSIONS Technically difficult study. The left ventricular systolic function is normal with an estimated ejection fraction in the range of 55-60%. Mild concentric left ventricular hypertrophy. There was limited left ventricular wall motion assessment due to poor endocardial visualization. Mild mitral valve regurgitation. Trace aortic valve regurgitation. BP: / HR: Rhythm: Sinus MEASUREMENTS (Male / Female) Normal Values Technical Quality:Technically difficult study 2D ECHO LV Diastolic Diameter PLAX 5.1 cm 4.2 - 5.9 / 3.9 - 5.3 cm LV Systolic Diameter PLAX 3.9 cm IVS Diastolic Thickness 1.1 cm 0.6 - 1.0 / 0.6 - 0.9 cm LVPW Diastolic Thickness 1.1 cm 0.6 - 1.0 / 0.6 - 0.9 cm LV Relative Wall Thickness 0.4 LVOT Diameter 2.6 cm M-MODE Aortic Root Diameter MM 3.7 cm LA Systolic Diameter MM 5.2 cm LA Ao Ratio MM 1.4 AV Cusp Separation MM 1.7 cm DOPPLER AV Peak Velocity 162.0 cm/s AV Peak Gradient 10.5 mmHg AI Peak Velocity 423.0 cm/s AI Peak Gradient 71.6 mmHg AI Pressure Half Time 416.0 ms LVOT Peak Velocity 109.0 cm/s LVOT Peak Gradient 4.8 mmHg AV Area Cont Eq pk 3.6 cm Mitral E Point Velocity 91.8 cm/s Mitral A Point Velocity 52.8 cm/s Mitral E to A Ratio 1.7 LV E' Lateral Velocity 6.0 cm/s Mitral E to LV E' Lateral Ratio 15.2 LV E' Septal Velocity 4.4 cm/s Mitral E to LV E' Septal Ratio 20.9 TR Peak Velocity 339.0 cm/s TR Peak Gradient 46.0 mmHg Right Atrial Pressure 10.0 mmHg Pulmonary Artery Systolic Pressu 56.0 mmHg Right Ventricular Systolic Press 56.0 mmHg PV Peak Velocity 181.0 cm/s PV Peak Gradient 13.1 mmHg FINDINGS LEFT VENTRICLE The left ventricular systolic function is normal with an estimated ejection fraction in the range of 55-60%. Mild concentric left ventricular hypertrophy. There was limited left ventricular wall motion assessment due to poor endocardial visualization. This study was not technically sufficient to allow for evaluation of left ventricular diastolic func tion. RIGHT VENTRICLE The right ventricle was not well visualized. LEFT ATRIUM The left atrial size is [id number] dilated. RIGHT ATRIUM The right atrium is not well visualized. ATRIAL SEPTUM The interatrial septum not well visualized. AORTA The aortic root and proximal ascending aorta are not well visualized. MITRAL VALVE Grossly normal Mild mitral valve regurgitation. AORTIC VALVE Trileaflet aortic valve. Trace aortic valve regurgitation. No aortic valve stenosis. TRICUSPID VALVE The tricuspid valve is not well visualized. The estimated pulmonary arterial pressure is 56 mmHg. PULMONARY VALVE No pulmonary valve regurgitation or stenosis. Colton Worthington DO (Electronically Signed) Final Date:25 July 2018 15:32
[2018-07-25] MEDS: Latanoprost 0.005% Opth Drops 2.5 ML Bottle EACH EYE SCH (17:15)
[2018-07-25] MEDS: Melatonin 5 MG Tablet PO PRN (21:27)
[2018-07-26 07:39] LABS: Calcium 8.6 mg/dL (8.5-10.1); Magnesium 2.3 mg/dL (1.5-2.5); Potassium 3.9 meq/L (3.5-5.1)
[2018-07-26] MEDS: Fenofibrate 145 MG Tablet PO SCH (08:41)
[2018-07-26] MEDS: Carvedilol 12.5 MG Tablet PO SCH ×2 (08:41→21:36)
[2018-07-26] MEDS: glipiZIDE 5 MG Tablet PO SCH (08:41)
[2018-07-26] MEDS: Enoxaparin Inj 40 MG/0.4 ML Syringe SQ SCH (08:41)
[2018-07-26] MEDS: Insulin NovoLOG Aspart Correctional Sugar Inj SQ SCH ×4 (08:42→21:40)
[2018-07-26] MEDS: Umeclindinium 62.5 MCG/Vilanterol 25 MCG Inhaler INH SCH (08:42)
--- NOTE | 2018-07-26 12:24 | P.PNIM ---
Subjective Interval history: Patient states he had a a well night sleep. He feels that his lower extremity swelling has improved. Physical Exam Vital signs: Vital Signs 07/25/18 13:07 07/25/18 13:58 07/25/18 16:00 Temperature 97.6 F Pulse Rate 62 90 Respiratory Rate 16 20 Blood Pressure 119/58 L Pulse Oximetry 93 L 95 07/25/18 20:00 07/25/18 21:00 07/26/18 00:00 Temperature 97.1 F L 97.4 F L Pulse Rate 73 81 Respiratory Rate 20 20 Blood Pressure 110/51 L 110/50 L 116/56 L Pulse Oximetry 96 98 07/26/18 04:00 07/26/18 08:00 07/26/18 10:26 Temperature 98.0 F Pulse Rate 67 71 Respiratory Rate 20 Blood Pressure 166/63 H Pulse Oximetry 93 L 92 L Intake & Output 07/25/18 07/26/18 07/26/18 18:59 06:59 18:59 Intake Total 720 / 720 Output Total 600 / 600 600 / 600 Balance 120 / 120 -600 / -600 Weight 57.7 kg Intake: Oral 720 / 720 Output: Urine 600 / 600 600 / 600 Other: # Bowel Movements 1 Narrative: General patient in no acute distress HEENT extraocular movements are intact, clear oropharyngeal mucosa, no JVD Cardiovascular S1-S2 audible, RRR Respiratory clear to auscultation bilaterally Abdomen soft, nontender, nondistended, normal bowel sounds Extremities 1+ pitting edema bilateral lower extremities up to knees Neuro patient moves all 4 extremities, sensation is intact bilaterally - Routine HEENT Exam ENT: Present: TM's clear bilaterally Results - Labs CBC & Chem 7: 07/25/18 03:42 07/26/18 06:25 Laboratory Results - last 24 hr 07/25/18 07/25/18 07/25/18 12:30 17:25 20:29 Sodium Potassium Chloride Carbon Dioxide Anion Gap BUN Creatinine Estimated GFR POC Glucose 168 H 121 H 133 H Random Glucose Calcium Magnesium 07/26/18 06:25 Sodium 144 Potassium 3.9 Chloride 107 Carbon Dioxide 30.0 Anion Gap 7 BUN 41 H Creatinine 1.95 H Estimated GFR 34 L POC Glucose Random Glucose 104 Calcium 8.6 Magnesium 2.3 Assessment and Plan - Assessment (1) Chest pain Code(s): R07.9 - Chest pain, unspecified Status: Acute - Plan This patient is a 72-year-old male with a diagnosis of coronary artery disease status post LA in April 2018. The patient also has dyslipidemia, COPD and an extensive tobacco smoking history and is on 3 L of supplemental oxygen at baseline. The patient is a CPAP at night. He presented to our emergency department with complaints of chest pain and shortness of breath. 1. Chest pain concern for ACS. 3 sets of troponins are negative. EKG does not show any findings concerning with acute LA. VQ scan indicates low risk of PE. Chest imaging shows findings consistent with pneumonia. The patient's chest pain is likely secondary to congestive heart failure exacerbation and pneumonia. Continue aspirin, beta- michael. 2. CHF exacerbation He has complaints of dyspnea on exertion. Patient uses 2-3 L of supplemental oxygen at baseline. Ejection fraction is 55-60%. As per the patient he does not follow a fluid restriction. BNP is elevated, chest x-ray shows some pulmonary vascular congestion and pneumonia. Continue IV Lasix, dose will be decreased to 20 mg IV twice daily. Monitor the patient's serum creatinine. If the creatinine continues to increase tomorrow consider stopping Lasix. On my evaluation the patient's lower extremity edema has improved, he sounds clear to auscultation bilaterally. Monitor ins and outs. Daily weight. Cardiology was consulted and the recommendations will be followed. Continue aspirin, beta- michael. 3. Community-acquired pneumonia Imaging is showing probable pneumonia. The patient does complain of a cough which could possibly be due to the pneumonia or CHF exacerbation. He will be continued on Levaquin for the pneumonia. He is not producing any sputum currently. Continue supplemental oxygen 2-3 L. 4. Acute kidney injury likely secondary to CHF exacerbation Continue IV diuresis. We will decrease the dose of the Lasix. Will follow up in a.m. basic metabolic panel. Consider stopping IV Lasix tomorrow depending on serum creatinine and the patient's overall status. Lovenox for DVT prophylaxis.
--- NOTE | 2018-07-26 16:20 | P.PNCA ---
Subjective Interval history: Edema and SOB better No complaints Medications and Allergies Active Medications: Active Medications Acetaminophen (Tylenol) 650 mg PO Q4H PRN PRN Reason: Headache, fever, pain 1-4 Al Hydroxide/Mg Hydroxide (Milk Of Magnesia Liq) 30 ml PO Q12H PRN PRN Reason: Mild Constipation Albuterol (Duoneb Neb (Prn)) 1 ampul NEB Q4HR NEB PRN PRN Reason: DYSPNEA Last Admin: 07/25/18 13:58 Dose: 1 ampul Aspirin (Aspirin Chew) 81 mg PO DAILY [facility] Last Admin: 07/26/18 08:41 Dose: 81 mg Bisacodyl (Dulcolax Supp) 10 mg RECTAL DAILY PRN PRN Reason: SEVERE CONSITIPATION Carvedilol (Coreg) 12.5 mg PO BID [facility] Last Admin: 07/26/18 08:41 Dose: 12.5 mg Cyclobenzaprine HCl (Flexeril) 5 mg PO TID [facility] Last Admin: 07/26/18 13:02 Dose: 5 mg Dextrose (D50w Vial) 50 ml IV.PUSH UNSCH PRN PRN Reason: PER HYPOGLYCEMIA PROTOCOL Enoxaparin Sodium (Lovenox Inj) 40 mg SQ DAILY [facility] Last Admin: 07/26/18 08:41 Dose: 40 mg Fenofibrate (Tricor) 145 mg PO DAILY [facility] Last Admin: 07/26/18 08:41 Dose: 145 mg Furosemide (Lasix Inj) 20 mg IV.PUSH BID@0900,1800 [facility] Glipizide (Glucotrol) 2.5 mg PO DAILY [facility] Last Admin: 07/26/18 08:41 Dose: 2.5 mg Glucagon (Glucagon Inj) 1 mg OTHER PRN PRN PRN Reason: for Hypoglycemia Protocol Insulin Aspart (Novolog Insulin Correctional Sugar Inj) 0 unit SQ ACHS [facility]; Protocol Last Admin: 07/26/18 13:02 Dose: Not Given Lactulose (Lactulose Liq) 30 ml PO DAILY PRN PRN Reason: SEVERE CONSITIPATION Latanoprost (Xalatan 0.005% Opth Drops) 1 drop EACH EYE QPM [facility] Last Admin: 07/25/18 17:15 Dose: 1 drop Levofloxacin (Levaquin) 750 mg PO Q48H [facility] Stop: 07/28/18 18:01 Last Admin: 07/24/18 20:31 Dose: 750 mg Melatonin (Melatonin) 5 mg PO HS PRN PRN Reason: INSOMNIA Last Admin: 07/25/18 21:27 Dose: 5 mg Miscellaneous (Pill Splitter) 1 each OTHER UNSCH PRN PRN Reason: SEE LABEL COMMENTS Ondansetron HCl (Zofran Inj) 4 mg IV.PUSH Q6H PRN PRN Reason: NAUSEA OR VOMITING Sennosides (Senokot) 17.2 mg PO Q12H PRN PRN Reason: Moderate Constipation Last Admin: 07/25/18 08:36 Dose: 17.2 mg Sodium Chloride (Ns Flush) 2 ml IV.FLUSH UNSCH PRN PRN Reason: FLUSH AFTER USING IV ACCESS Umeclidinium/Vilanterol (Anoro-Ellipta 62.5/25 Mcg Inh) 1 puff INH Q24H [facility]IS[facility] Last Admin: 07/26/18 08:42 Dose: 1 puff Allergies Allergy/AdvReac Type Severity Reaction Status Date / Time Sulfa (Sulfonamide Allergy Mild Nausea/Vomi Verified 12/20/17 20:30 Antibiotics) ting Home Medications Medication Instructions Recorded Confirmed Type albuterol sulfate 2.5 mg INHALATION Q4-6H PRN 07/24/18 07/24/18 History aspirin 81 mg PO DAILY 07/24/18 07/24/18 History carvedilol [Coreg] 12.5 mg PO BID 07/24/18 07/24/18 History fenofibrate 160 mg PO DAILY 07/24/18 07/24/18 History furosemide 60 mg PO DAILY 07/24/18 07/24/18 History glipizide 2.5 mg PO DAILY 07/24/18 07/24/18 History latanoprost 1 drp OPHTHALMIC (EYE) QPM 07/24/18 07/24/18 History methocarbamol 500 mg PO QID 07/24/18 07/24/18 History umeclidinium-vilanterol [Anoro 1 inh INHALATION Q24H 07/24/18 07/24/18 History Ellipta] Physical Exam Vital signs: Vital Signs 07/25/18 20:00 07/25/18 21:00 07/26/18 00:00 Temperature 97.1 F L 97.4 F L Pulse Rate 73 81 Respiratory Rate 20 20 Blood Pressure 110/51 L 110/50 L 116/56 L Pulse Oximetry 96 98 07/26/18 04:00 07/26/18 08:00 07/26/18 10:26 Temperature 98.0 F Pulse Rate 67 71 Respiratory Rate 20 Blood Pressure 166/63 H Pulse Oximetry 93 L 92 L Intake & Output 07/25/18 07/26/18 07/26/18 18:59 06:59 18:59 Intake Total 720 / 720 Output Total 600 / 600 600 / 600 Balance 120 / 120 -600 / -600 Weight 57.7 kg Intake: Oral 720 / 720 Output: Urine 600 / 600 600 / 600 Other: # Bowel Movements 1 Narrative: General patient in no acute distress HEENT extraocular movements are intact, clear oropharyngeal mucosa, no JVD Cardiovascular S1-S2 audible, RRR Respiratory clear to auscultation bilaterally Abdomen soft, nontender, nondistended, normal bowel sounds Extremities 1+ pitting edema bilateral lower extremities up to knees Neuro patient moves all 4 extremities, sensation is intact bilaterally Results 07/25/18 03:42 07/26/18 06:25 Cardiac Enzymes 07/24/18 07/25/18 Range/Units 21:55 03:42 Troponin I Less than 0.02 L Less than 0.02 L (0.02-0.05) ng/mL CBC 07/25/18 Range/Units 03:42 WBC 7.1 (4.0-11.0) th/mm3 RBC 3.97 L (4.50-5.90) mil/mm3 Hgb 11.8 L (13.0-17.0) gm/dL Hct 35.7 L (39.0-51.0) % Plt Count 157 (150-450) th/mm3 Neut # (Auto) 4.3 (1.8-7.7) th/mm3 Lymph # (Auto) 1.5 (1.0-4.8) th/mm3 Osborne # (Auto) 1.1 H (0.0-0.9) th/mm3 Eos # (Auto) 0.2 (0.0-0.4) th/mm3 Baso # (Auto) 0.1 (0.0-0.2) th/mm3 Comprehensive Metabolic Panel 07/25/18 07/26/18 Range/Units 03:42 06:25 Sodium 145 144 (136-145) meq/L Potassium 3.8 3.9 (3.5-5.1) meq/L Chloride 106 107 (98-107) meq/L Carbon Dioxide 28.6 30.0 (21.0-32.0) meq/L BUN 37 H 41 H (7-18) mg/dL Creatinine 1.76 H 1.95 H (0.60-1.30) mg/dL Calcium 8.6 8.6 (8.5-10.1) mg/dL Intake and Output 07/26/18 07/26/18 07/26/18 06:59 14:59 22:59 Output Total 600 / 600 Balance -600 / -600 Output: Urine 600 / 600 Other: Weight 57.7 kg - Imaging and Cardiology Imaging: Impressions Chest CT 07/24/18 14:54 CONCLUSION: 1. Trace pleural fluid. No consolidation. No pneumothorax. 2. Mild emphysema. Moderate coronary calcifications. Cardiomegaly. No acute bony abnormality. Pulmonary Perfusion Imaging 07/24/18 14:54 CONCLUSION: 1. Low probability for pulmonary embolus. Venous Doppler Study 07/24/18 15:09 CONCLUSION: 1. The study is negative for bilateral lower extremity deep venous thrombosis. Assessment and Plan - Assessment (1) SOB (shortness of breath) Code(s): R06.02 - Shortness of breath Status: Acute (2) Chronic diastolic heart failure Code(s): I50.32 - Chronic diastolic (congestive) heart failure Status: Acute (3) Mild coronary artery disease Code(s): I25.10 - Atherosclerotic heart disease of kaw coronary artery without angina pectoris Status: Acute (4) Chest pain Code(s): R07.9 - Chest pain, unspecified Status: Acute - Plan 1) Right sided chest pain Musculoskeletal in nature Relieve by pain meds 2) Acute on chronic diastolic heart failure May be due to dietary salt intake Earlier this week ate a steak while out, seasoned heavily Con't diuresis Agree with decreasing Lasix and following clinically as well as BMP Most likely discharge on Demadex for better effect Discussed avoiding salt Watches weights at home Previous cath having elevated LVEDP of 40 3) Mild CAD by cath No further workup necessary at this time
[2018-07-26] MEDS: levoFLOXacin 750 MG Tablet PO SCH (17:13)
[2018-07-26] MEDS: Latanoprost 0.005% Opth Drops 2.5 ML Bottle EACH EYE SCH (17:21)
[2018-07-26] MEDS: Melatonin 5 MG Tablet PO PRN (21:37)
[2018-07-27 06:11] LABS: Calcium 8.4 mg/dL (8.5-10.1); Carbon Dioxide 29.4 meq/L (21.0-32.0); Magnesium 2.4 mg/dL (1.5-2.5); Potassium 3.9 meq/L (3.5-5.1)
[2018-07-27 07:44] VITALS: TEMP 97.5
[2018-07-27] MEDS: Insulin NovoLOG Aspart Correctional Sugar Inj SQ SCH ×2 (08:00→11:39)
[2018-07-27] MEDS: Carvedilol 12.5 MG Tablet PO SCH (08:01)
[2018-07-27] MEDS: glipiZIDE 5 MG Tablet PO SCH (08:01)
[2018-07-27] MEDS: Fenofibrate 145 MG Tablet PO SCH (08:01)
[2018-07-27] MEDS: Enoxaparin Inj 40 MG/0.4 ML Syringe SQ SCH (08:02)
[2018-07-27] MEDS: Umeclindinium 62.5 MCG/Vilanterol 25 MCG Inhaler INH SCH (08:07)
[2018-07-27 08:42] VITALS: BP 114/57; RESP 16
[2018-07-27 11:39] VITALS: O2SAT 95
--- NOTE | 2018-07-27 11:39 | P.DS ---
Date of admission: 07/24/18 15:52 Primary care physician: No Primary Care Physician Brief History from admission: HPI from the admitting physician: Mr. Hwang is a pleasant 72-year-old male with a history of hyperlipidemia, diabetes mellitus, COPD, CAD (s/p OR in April) who presents to the emergency department due to increased dyspnea that started 2 days ago. He also complained of right-sided chest discomfort without any radiation or associated nausea/vomiting or diaphoresis. His chest discomfort lasted 20 minutes or so but occurred episodically. He arrived from [place] 2 days ago. He follows up with Dr. Noyola. Patient denies any cough, fever, chills. Denies any changes in bowel or bladder habits. Patient update on day of discharge: Patient reports he is feeling better and close to his baseline. No chest pain. SOB and edema better. DS: Diagnosis - Discharge Diagnosis (1) Acute on chronic diastolic (congestive) heart failure Status: Acute (2) Chest pain Status: Acute (3) Mild coronary artery disease Status: Acute (4) SOB (shortness of breath) Status: Acute (5) Pneumonia Status: Acute DS: Medications - Discharge Medications Prescriptions: levofloxacin 750 mg PO Q48H #2 tab torsemide [Demadex] 10 mg PO DAILY #30 tab DS: Summary Hospital Course: 72-year-old male with a diagnosis of coronary artery disease status post OR in April 2018. The patient also has dyslipidemia, COPD and an extensive tobacco smoking history and is on 3 L of supplemental oxygen at baseline. The patient use a CPAP at night. He presented to our emergency department with complaints of chest pain and shortness of breath. Evaluation and treatment course detailed below: 1. Chest pain concern for ACS. 3 sets of troponins are negative. EKG does not show any findings concerning with acute OR. VQ scan indicates low risk of PE. Chest imaging shows findings consistent with pneumonia. The patient's chest pain is likely secondary to congestive heart failure exacerbation and pneumonia. Continue aspirin, beta- michael. 2. CHF exacerbation He has complaints of dyspnea on exertion. Patient uses 2-3 L of supplemental oxygen at baseline. Ejection fraction is 55-60%. As per the patient he does not follow a fluid restriction. BNP is elevated, chest x-ray shows some pulmonary vascular congestion and pneumonia. Patient treated with IV Lasix. Edema dn SOB improved. Patient was followed by Cardiology who recommended continuing medical management and switch Lasix to Torsemide which was done on discharge. Patient to follow up outpatient. Continue aspirin, beta-michael. 3. Community-acquired pneumonia Imaging is showing probable pneumonia. The patient does complain of a cough which could possibly be due to the pneumonia or CHF exacerbation. He will be continued on Levaquin for the pneumonia. He is not producing any sputum currently. Continue supplemental oxygen 2-3 L. 4. Acute kidney injury likely secondary to CHF exacerbation Renal functions improved. Outpatient follow up advised. - Time Spent with Patient Total time spent providing and/or coordinating discharge services: Less than 30 minutes - Quality: VTE Deep Vein Thrombosis/Pulmonary Embolism Present on Admission: No Exam Vital signs: Vital Signs 07/26/18 12:00 07/26/18 16:00 07/26/18 20:00 Temperature 97.8 F 97.7 F 98.2 F Pulse Rate 79 75 79 Respiratory Rate 20 20 20 Blood Pressure 95/54 L 115/58 L 114/56 L Pulse Oximetry 93 L 97 95 07/26/18 21:40 07/26/18 22:41 07/27/18 00:00 Temperature 98.1 F Pulse Rate 96 H 81 Respiratory Rate 20 18 Blood Pressure 91/48 L Pulse Oximetry 95 95 07/27/18 04:00 07/27/18 08:00 07/27/18 11:38 Temperature 97.5 F L 97.5 F L Pulse Rate 68 70 Respiratory Rate 20 16 Blood Pressure 93/50 L 114/57 L Pulse Oximetry 97 94 L 95 Intake & Output 07/26/18 07/27/18 07/27/18 18:59 06:59 18:59 Intake Total 720 / 720 480 / 480 Output Total 1300 / 1300 375 / 375 Balance -580 / -580 105 / 105 Intake: Oral 720 / 720 480 / 480 Output: Urine 1300 / 1300 375 / 375 Other: Date of Last Bowel Movement 07/27/18 # Bowel Movements 3 2 Narrative: General patient in no acute distress HEENT extraocular movements are intact, clear oropharyngeal mucosa, no JVD Cardiovascular S1-S2 audible, RRR Respiratory clear to auscultation bilaterally Abdomen soft, nontender, nondistended, normal bowel sounds Extremities 1+ pitting edema bilateral lower extremities up to knees Neuro patient moves all 4 extremities, sensation is intact bilaterally Results Procedures completed during hospitalization: None Labs on day of discharge: Labs from last 24 hours 07/27/18 07/27/18 07/26/18 11:31 04:41 20:18 Sodium 146 H Potassium 3.9 Chloride 107 Carbon Dioxide 29.4 Anion Gap 10 BUN 42 H Creatinine 1.83 H Estimated GFR 36 L POC Glucose 147 H 146 H Random Glucose 92 Calcium 8.4 L Magnesium 2.4 07/26/18 07/26/18 17:04 12:50 Sodium Potassium Chloride Carbon Dioxide Anion Gap BUN Creatinine Estimated GFR POC Glucose 111 H 91 Random Glucose Calcium Magnesium - Impressions ITS Impressions Chest X-Ray 07/24/18 14:11 CONCLUSION: Bibasilar patchy opacities consistent with probable pneumonia. Clinical correlation is recommended. Chest CT 07/24/18 14:54 CONCLUSION: 1. Trace pleural fluid. No consolidation. No pneumothorax. 2. Mild emphysema. Moderate coronary calcifications. Cardiomegaly. No acute bony abnormality. Pulmonary Perfusion Imaging 07/24/18 14:54 CONCLUSION: 1. Low probability for pulmonary embolus. Venous Doppler Study 07/24/18 15:09 CONCLUSION: 1. The study is negative for bilateral lower extremity deep venous thrombosis. Discharge Plan - Discharge Disposition Patient Disposition: Discharge Home - Discharge Condition Condition: Stable - Discharge Order Discharge Orders: Discharge Order (Routine); Ordered 07/27/18 Ordered By: Cindy Stanley - Physicians Team Primary Care Provider: Primary Care Mirelai,Marisela Attending Provider: Cindy Stanley Other Providers: Colton Worthington DO
[2018-07-27 13:18] VITALS: PULSE 74
== END 2018-07-27 13:50 | disposition home or self-care (01) ==
LOC: NEPE 13:36 → NEDA 15:52 → N04 19:00
PROVIDERS: ADMIT Family Medicine; ATTEND Family Medicine

== ENCOUNTER 2018-08-25 16:45 | Observation (INO) ==
--- NOTE | 2018-08-25 17:48 | ED ---
HPI General Chief Complaint: Chest Pain Stated Complaint: Patient states chest pain/diff hard time breathing Time Seen by Provider: 08/25/18 17:22 Source: patient Mode of arrival: ambulatory Limitations: no limitations History of Present Illness HPI narrative: 72-year-old male with a history of CAD, asthma, chronic diastolic heart failure, diabetes, hyperlipidemia, HIREN presents to the emergency department for evaluation of cough, shortness of breath, chest pain that started "a while ago". He says that the shortness of breath and chest discomfort has worsened over the last 3 nights and decided to come in today for evaluation. His pain is located in the left chest region and is 7/10 in severity and nonradiating. He says his shortness of breath is also worsened. He denies excessive swelling of his lower extremities. He says that his cough has been productive with a dark colored sputum. He says that he has had a difficult time performing ADLs because of his shortness of breath. He denies nausea or vomiting. Denies abdominal pain or back pain. He states that he called Dr. 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 He states compliance with his medications. MD complaint: Reports chest pain Duration: constant Onset: during rest Pain location: Reports left chest Severity scale (1-10): 7 Quality: Reports tightness Pain radiation: Reports none Relieving factors: nothing Exacerbating factors: exertion and movement Associated symptoms: Reports dyspnea and cough; Denies nausea and vomiting Related Data Home Medications Medication Instructions Recorded Confirmed albuterol sulfate 2.5 mg INHALATION Q4-6H PRN 07/24/18 08/25/18 aspirin 81 mg PO DAILY 07/24/18 08/25/18 carvedilol [Coreg] 12.5 mg PO BID 07/24/18 08/25/18 fenofibrate 160 mg PO DAILY 07/24/18 08/25/18 glipizide 2.5 mg PO DAILY 07/24/18 08/25/18 latanoprost 1 drp OPHTHALMIC (EYE) QPM 07/24/18 08/25/18 methocarbamol 500 mg PO QID PRN 07/24/18 08/25/18 umeclidinium-vilanterol [Anoro 1 inh INHALATION Q24H 07/24/18 08/25/18 Ellipta] acetaminophen-codeine 1 tab PO Q6H PRN 08/25/18 08/25/18 atorvastatin 80 mg PO DAILY 08/25/18 08/25/18 furosemide 60 mg PO BID 08/25/18 08/25/18 Allergies Allergy/AdvReac Type Severity Reaction Status Date / Time Sulfa (Sulfonamide Allergy Mild Nausea/Vomi Verified 08/25/18 17:12 Antibiotics) ting Review of Systems ROS: all other systems reviewed are negative [facility] Medical History Medical History Asthma (Acute) CHF (congestive heart failure) (Acute) Diabetes (Acute) High cholesterol (Acute) Myocardial infarction (Acute) Family History Family History Father FH: CABG (coronary artery bypass surgery) Mother Heart disease Social History Social History Substance History: No History of Abuse Second Hand Smoke Exposure: No Smoking Status: Never smoker How Often Do You Have a Drink Containing Alcohol: 2 to 4 times a month Recent Travel in [facility] within the Last 8 Weeks: No Recent Out of Country Travel within the Last 8 Weeks: No Immunization History Tetanus Immunization: Unsure Exam Narrative Exam Narrative: GENERAL: Well-developed, well-nourished in no acute distress SKIN: Focused skin assessment warm/dry. HEAD: Atraumatic. Normocephalic. EYES: Pupils equal and round. No scleral icterus. No injection or drainage. ENT: No nasal bleeding or discharge. Mucous membranes pink and moist. NECK: Trachea midline. No JVD. CARDIOVASCULAR: Regular rate and rhythm. No murmur appreciated. Systolic heart murmur present best heard over left midsternal region RESPIRATORY: No accessory muscle use. Clear to auscultation. Breath sounds equal bilaterally. GASTROINTESTINAL: Abdomen soft, non-tender, nondistended. Hepatic and splenic margins not palpable. MUSCULOSKELETAL: No obvious deformities. No clubbing. No cyanosis. No edema. No tenderness palpation of the calves NEUROLOGICAL: Awake and alert. No obvious cranial nerve deficits. Motor grossly within normal limits. Normal speech. PSYCHIATRIC: Appropriate mood and affect; insight and judgment normal. Course Initial Documented Vital Signs Temperature 97.7 F 08/25/18 16:48 Pulse Rate 77 08/25/18 16:48 Respiratory Rate 18 08/25/18 16:48 Blood Pressure 142/67 H 08/25/18 16:48 Last Documented Vital Signs Temperature 97.7 F 08/25/18 16:48 Pulse Rate 71 08/25/18 19:51 Respiratory Rate 18 08/25/18 19:51 Blood Pressure 110/60 08/25/18 19:51 Pulse Oximetry 91 L 08/25/18 19:51 Clinical Decision Support HEART Score Questions History: Slightly suspicious EKG: Non-specific repolarization disturbance Age: 65 years+ Risk Factors: 3 or more Risk Factors or Hx of Atherosclerotic Disease Initial Troponin: Normal Limit Heart Score HEART Score: 5 Medical Decision Making MDM Narrative Medical decision making narrative: 72-year-old male presents to the emergency department for evaluation of chest pain and shortness of breath that is been worsening over the last couple days. He states that he has not been able to perform his ADLs because of the shortness of breath and has required oxygen at home which is abnormal for him. He uses the O2 as needed. He says he called Dr. 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 His vital signs are stable. 2LPM O2 via NC applied as his SaO2 was 92% on RA and was SOB. Patient was here in the emergency department approximately 1 month ago where he was evaluated by cardiology and had an echocardiogram. His EF was 55-60%. A pulmonary embolism was a concern but ruled out with a VQ scan. Patient had a heart cath in April 2018 while in [place] on vacation. Labs were notable for WBC 4.9, platelets 138, BUN/creatinine 38/2.01, troponin less than 0.02, BNP 1238 (1491 07/24/2018). Chest x-ray without indication of pneumonia. EKG sinus rhythm rate 83 no STEMI changes. Unable to view previous EKGs but read is similar to todays. ASA 162mg administered. Pt took 82mg ASA today. Tylenol and NTG administered. Ativan for anxiety as he appeared slightly anxious upon my reevalaution. Will admit patient for shortness of breath and chest pain. Medical Screen Exam Complete: Yes Emergency Medical Condition: Yes Differential Diagnosis Differential Diagnosis: CHF exacerbation, pneumonia, CAD, ACS, angina, bronchitis Lab Data Result diagrams: 08/25/18 17:38 08/25/18 17:38 Lab Results 10/23/18 10/23/18 10/23/18 Range/Units 17:38 17:38 17:38 WBC 4.9 (4.0-11.0) th/mm3 RBC 4.34 L (4.50-5.90) mil/mm3 Hgb 13.2 (13.0-17.0) gm/dL Hct 39.3 (39.0-51.0) % MCV 90.5 (80.0-100.0) fL MCH 30.3 (27.0-34.0) pg MCHC 33.5 (32.0-36.0) % RDW 15.8 (11.6-17.2) % Plt Count 138 L (150-450) th/mm3 MPV 10.4 (7.0-11.0) fL Neut % (Auto) 56.4 (16.0-70.0) % Lymph % (Auto) 26.3 (9.0-44.0) % [place] % (Auto) 12.6 H (0.0-8.0) % Eos % (Auto) 4.0 (0.0-4.0) % Baso % (Auto) 0.7 (0.0-2.0) % Neut # (Auto) 2.8 (1.8-7.7) th/mm3 Lymph # (Auto) 1.3 (1.0-4.8) th/mm3 [place] # (Auto) 0.6 (0.0-0.9) th/mm3 Eos # (Auto) 0.2 (0.0-0.4) th/mm3 Baso # (Auto) 0.0 (0.0-0.2) th/mm3 WBC Differential . Differential Comment Auto diff final PT 11.5 (9.8-11.6) sec INR 1.1 Ratio APTT 23.8 L (24.3-30.1) sec Sodium 142 (136-145) meq/L Potassium 3.7 (3.5-5.1) meq/L Chloride 105 (98-107) meq/L Carbon Dioxide 28.4 (21.0-32.0) meq/L Anion Gap 9 (5-15) meq/L BUN 38 H (7-18) mg/dL Creatinine 2.01 H (0.60-1.30) mg/dL Estimated GFR 33 L (>89) mL/min Random Glucose 128 H (74-106) mg/dL Calcium 8.8 (8.5-10.1) mg/dL Total Bilirubin 0.5 (0.2-1.0) mg/dL AST 15 (15-37) U/L ALT 14 (12-78) U/L Alkaline Phosphatase 35 L (45-117) U/L Troponin I Less than 0.02 L (0.02-0.05) ng/mL B-Natriuretic Peptide (0-100) pg/mL Total Protein 7.2 (6.4-8.2) g/dL Albumin 3.9 (3.4-5.0) g/dL 08/25/18 Range/Units 17:38 WBC (4.0-11.0) th/mm3 RBC (4.50-5.90) mil/mm3 Hgb (13.0-17.0) gm/dL Hct (39.0-51.0) % MCV (80.0-100.0) fL MCH (27.0-34.0) pg MCHC (32.0-36.0) % RDW (11.6-17.2) % Plt Count (150-450) th/mm3 MPV (7.0-11.0) fL Neut % (Auto) (16.0-70.0) % Lymph % (Auto) (9.0-44.0) % [place] % (Auto) (0.0-8.0) % Eos % (Auto) (0.0-4.0) % Baso % (Auto) (0.0-2.0) % Neut # (Auto) (1.8-7.7) th/mm3 Lymph # (Auto) (1.0-4.8) th/mm3 [place] # (Auto) (0.0-0.9) th/mm3 Eos # (Auto) (0.0-0.4) th/mm3 Baso # (Auto) (0.0-0.2) th/mm3 WBC Differential Differential Comment PT (9.8-11.6) sec INR Ratio APTT (24.3-30.1) sec Sodium (136-145) meq/L Potassium (3.5-5.1) meq/L Chloride (98-107) meq/L Carbon Dioxide (21.0-32.0) meq/L Anion Gap (5-15) meq/L BUN (7-18) mg/dL Creatinine (0.60-1.30) mg/dL Estimated GFR (>89) mL/min Random Glucose (74-106) mg/dL Calcium (8.5-10.1) mg/dL Total Bilirubin (0.2-1.0) mg/dL AST (15-37) U/L ALT (12-78) U/L Alkaline Phosphatase (45-117) U/L Troponin I (0.02-0.05) ng/mL B-Natriuretic Peptide 1238 H (0-100) pg/mL Total Protein (6.4-8.2) g/dL Albumin (3.4-5.0) g/dL Imaging Data Radiologist's impression: Chest X-Ray 08/25/18 17:36 CONCLUSION: 1. Bibasilar atelectatic changes/scarring, right greater than left. There is actually improved aeration in both bases when compared to the prior. 2. Compensated cardiomegaly. Discharge Plan Discharge Disposition Patient Disposition: 30 Still Patient Discharge Condition Condition: Stable Discharge Details Diagnosis: CHF exacerbation Physicians Team ED Provider: Ramon Michaels ED Midlevel Provider: Kathrin Shrestha Primary Care Provider: Primary Care Marisela Claros Attending Provider: Sandra Shelby Status ED Status: Admitted Observation Patient
[2018-08-25 17:59] LABS: Baso % (Auto) 0.7 % (0.0-2.0); Eos # (Auto) 0.2 th/mm3 (0.0-0.4); Hematocrit 39.3 % (39.0-51.0); Hemoglobin 13.2 gm/dL (13.0-17.0); Lymph # (Auto) 1.3 th/mm3 (1.0-4.8); Lymph % (Auto) 26.3 % (9.0-44.0); Mean Corpuscular HGB Conc 33.5 % (32.0-36.0); Mean Corpuscular Hemoglobin 30.3 pg (27.0-34.0); Mean Corpuscular Volume 90.5 fL (80.0-100.0); Mean Platelet Volume 10.4 fL (7.0-11.0); Mono # (Auto) 0.6 th/mm3 (0.0-0.9); Mono % (Auto) 12.6 % (0.0-8.0); Neut # (Auto) 2.8 th/mm3 (1.8-7.7); Neut % (Auto) 56.4 % (16.0-70.0); Platelet Count 138 th/mm3 (150-450); Red Blood Count 4.34 mil/mm3 (4.50-5.90); Red Cell Distribution Width 15.8 % (11.6-17.2); White Blood Count 4.9 th/mm3 (4.0-11.0)
[2018-08-25 18:08] LABS: Activated Partial Thrombo Time 23.8 sec (24.3-30.1); INR 1.1 Ratio; Prothrombin Time 11.5 sec (9.8-11.6)
[2018-08-25 18:17] LABS: Albumin 3.9 g/dL (3.4-5.0); Anion Gap 9 meq/L (5-15); Aspartate Aminotransferase 15 U/L (15-37); Blood Urea Nitrogen 38 mg/dL (7-18); Calcium 8.8 mg/dL (8.5-10.1); Carbon Dioxide 28.4 meq/L (21.0-32.0); Chloride 105 meq/L (98-107); Glomerular Filtration Rate 33 mL/min (>89); Glucose,Random 128 mg/dL (74-106); Potassium 3.7 meq/L (3.5-5.1); Sodium 142 meq/L (136-145)
[2018-08-25 18:22] LABS: Alanine Aminotransferase 14 U/L (12-78); Alkaline Phosphatase 35 U/L (45-117); Total Protein 7.2 g/dL (6.4-8.2)
--- NOTE | 2018-08-25 18:53 | XR ---
EXAM DATE: 08/25/2018 5:36 PM EDT AGE/SEX: 72 years / Male INDICATIONS: . Short of breath. Cough. Chest pain. CLINICAL DATA: This is the patient's initial encounter. Patient reports that signs and symptoms have been present for 2 weeks and indicates a pain score of 3/10. MEDICAL/SURGICAL HISTORY: . Asthma. Congestive heart failure. Diabetes. Myocardial infarction. Hyperlipidemia. Sleep apnea. Coronary artery disease. COPD. . Cardiac catheterization. . [place] [facility] [place]. . FINDINGS: PA and lateral views of the chest demonstrate the lungs to be symmetrically aerated with improving ae ration in both bases when compared to the prior. There are still bibasilar atelectatic changes, right worse than left. Heart size is borderline prominent. Dextroscoliosis of the dorsal spine. Osseous st ructures are otherwise intact with multilevel degenerative spinal CONCLUSION: 1. Bibasilar atelectatic changes/scarring, right greater than left. There is actually improved aerat ion in both bases when compared to the prior. 2. Compensated cardiomegaly. Electronically signed by: Deshawn Drew MD 08/25/2018 6:52 PM EDT
[2018-08-25] MEDS ORDERED: Acetaminophen 500 MG Tablet PO ONE (19:29)
[2018-08-25 21:37] LABS: ABG Base Excess 1.7 mmol/L (-2-2); ABG PCO2 34 mmHg (38-42); ABG PO2 68 mmHg (61-120)
[2018-08-25] MEDS ORDERED: Acetaminophen 325 MG Tablet PO PRN (22:21)
[2018-08-25] MEDS ORDERED: Bisacodyl 10 MG Supp RECTAL PRN (22:21)
[2018-08-25] MEDS ORDERED: Dextrose 50% in Water 50 ML Vial IV.PUSH PRN (22:25)
--- NOTE | 2018-08-25 22:36 | P.HP ---
History of Present Illness Service: [facility] Primary Care Physician: No Primary Care Physician History of Present Illness: 72-year-old male with a past medical history significant for coronary artery disease status post NH on last , CHF, COPD, diabetes mellitus, hypertension and hyperlipidemia presents to the emergency department for evaluation of shortness of breath and chest pain. Patient reports approximately 2 days ago his shortness of breath acutely worsened. He endorses associated paroxysmal nocturnal dyspnea. He denies any increased edema. He has also had left-sided chest pain times 2 days that is nonradiating. He denies fever/chills. No abdominal pain. No nausea/vomiting/diarrhea. No lateralizing signs/symptoms. The patient also endorses an increased cough for the past several days that is productive of dark colored sputum. Review of Systems All other systems reviewed negative except as stated in HPI [facility] - History History Provided By: Patient - Medical History Medical History: Medical History (Last Updated 08/25/18 @ 22:28 by Sandra Shelby MD) HTN (hypertension) Asthma CHF (congestive heart failure) Diabetes High cholesterol Myocardial infarction - Surgical History Surgical History: Surgical History (Last Updated 08/25/18 @ 22:28 by Sandra Shelby MD) Status post cardiac catheterization H/O melanoma excision History of knee surgery Hx of appendectomy - Family History Family History: Family History (Last Reviewed 08/25/18 @ 22:28 by Sandra Shelby MD) Father FH: CABG (coronary artery bypass surgery) Mother Heart disease - Tobacco History Second Hand Smoke Exposure: No Smoking Status: Never smoker - Alcohol History How Often Do You Have a Drink Containing Alcohol: 2 to 4 times a month - Substance Use History Substance History: No History of Abuse - Travel History Recent Travel in the [place] Within the Last 8 Weeks: No Recent Travel Out of the Country Within the Last 8 Weeks: No - Immunization History Tetanus Immunization: Unsure Medications and Allergies Allergies Allergy/AdvReac Type Severity Reaction Status Date / Time Sulfa (Sulfonamide Allergy Mild Nausea/Vomi Verified 08/25/18 17:12 Antibiotics) ting Home Medications Medication Instructions Recorded Confirmed Type albuterol sulfate 2.5 mg INHALATION Q4-6H PRN 07/24/18 08/25/18 History aspirin 81 mg PO DAILY 07/24/18 08/25/18 History carvedilol [Coreg] 12.5 mg PO BID 07/24/18 08/25/18 History fenofibrate 160 mg PO DAILY 07/24/18 08/25/18 History glipizide 2.5 mg PO DAILY 07/24/18 08/25/18 History latanoprost 1 drp OPHTHALMIC (EYE) QPM 07/24/18 08/25/18 History methocarbamol 500 mg PO QID PRN 07/24/18 08/25/18 History umeclidinium-vilanterol [Anoro 1 inh INHALATION Q24H 07/24/18 08/25/18 History Ellipta] acetaminophen-codeine 1 tab PO Q6H PRN 08/25/18 08/25/18 History atorvastatin 80 mg PO DAILY 08/25/18 08/25/18 History furosemide 60 mg PO BID 08/25/18 08/25/18 History Exam Vital signs: Vital Signs 08/25/18 16:48 08/25/18 17:19 08/25/18 19:11 Temperature 97.7 F Pulse Rate 77 70 68 Respiratory Rate 18 26 H 20 Blood Pressure 142/67 H 132/86 108/59 L Pulse Oximetry 95 95 08/25/18 19:38 08/25/18 19:51 08/25/18 21:28 Temperature Pulse Rate 71 Respiratory Rate 20 18 16 Blood Pressure 110/60 Pulse Oximetry 91 L Intake & Output 08/25/18 08/25/18 08/26/18 06:59 18:59 06:59 Weight 117.027 kg Narrative: Gen.: No acute distress Head: Normocephalic. Atraumatic. EENT: Pupils equal round and reactive to light. Nose without drainage. Airway intact. Throat without injection. Cardiovascular: Regular rate and rhythm. No murmurs, rubs or gallops. Respiratory: Poor air movement. Bilateral rhonchi. Abdomen: Soft, nontender, nondistended. No peritoneal signs. Musculoskeletal: No gross deformities. 2+ edema bilaterally Skin: No obvious rashes or erythema. Neuro: Sensory and motor grossly intact. Cranial nerves II through XII grossly intact. Results - Labs CBC & Chem 7: 08/25/18 17:38 08/25/18 17:38 Labs: Laboratory Results - last 24 hr 08/25/18 08/25/18 08/25/18 17:38 17:38 17:38 WBC 4.9 RBC 4.34 L Hgb 13.2 Hct 39.3 MCV 90.5 MCH 30.3 MCHC 33.5 RDW 15.8 Plt Count 138 L MPV 10.4 Neut % (Auto) 56.4 Lymph % (Auto) 26.3 [place] % (Auto) 12.6 H Eos % (Auto) 4.0 Baso % (Auto) 0.7 Neut # (Auto) 2.8 Lymph # (Auto) 1.3 [place] # (Auto) 0.6 Eos # (Auto) 0.2 Baso # (Auto) 0.0 WBC Differential . Differential Comment Auto diff final PT 11.5 INR 1.1 APTT 23.8 L Puncture Site Patient Temperature O2 Saturation ABG pH ABG pCO2 ABG pO2 ABG HCO3 ABG O2 Content ABG Base Excess ABG Methemoglobin Yariel Test Hemoglobin Carboxyhemoglobin O2 Delivery Device Liter Flow Critical Value Sodium 142 Potassium 3.7 Chloride 105 Carbon Dioxide 28.4 Anion Gap 9 BUN 38 H Creatinine 2.01 H Estimated GFR 33 L Random Glucose 128 H Calcium 8.8 Total Bilirubin 0.5 AST 15 ALT 14 Alkaline Phosphatase 35 L Troponin I Less than 0.02 L B-Natriuretic Peptide Total Protein 7.2 Albumin 3.9 08/25/18 08/25/18 17:38 21:15 WBC RBC Hgb Hct MCV MCH MCHC RDW Plt Count MPV Neut % (Auto) Lymph % (Auto) [place] % (Auto) Eos % (Auto) Baso % (Auto) Neut # (Auto) Lymph # (Auto) [place] # (Auto) Eos # (Auto) Baso # (Auto) WBC Differential Differential Comment PT INR APTT Puncture Site Left radial Patient Temperature 98.6 O2 Saturation 92 ABG pH 7.48 H ABG pCO2 34 L ABG pO2 68 ABG HCO3 25 ABG O2 Content 16.6 ABG Base Excess 1.7 ABG Methemoglobin 0.5 Yariel Test Present Hemoglobin 12.8 Carboxyhemoglobin 1.8 O2 Delivery Device Liter Flow Critical Value No Sodium Potassium Chloride Carbon Dioxide Anion Gap BUN Creatinine Estimated GFR Random Glucose Calcium Total Bilirubin AST ALT Alkaline Phosphatase Troponin I B-Natriuretic Peptide 1238 H Total Protein Albumin - Imaging Impressions Chest X-Ray 08/25/18 17:36 CONCLUSION: 1. Bibasilar atelectatic changes/scarring, right greater than left. There is actually improved aeration in both bases when compared to the prior. 2. Compensated cardiomegaly. Caprini VTE Risk Assessment Caprini VTE Risk Assessment: Moderate/High Risk (score >= 2) Caprini Risk Assessment Model: Point Value = 1 Point Value = 2 Point Value = 3 Point Value = 5 Age 41-60 Minor surgery BMI > 25 kg/m2 Swollen legs Varicose veins or History of unexplained or recurrent spontaneous Oral contraceptives or hormone replacement Sepsis (< 1 month) Serious lung disease, including pneumonia (< 1 month) Abnormal pulmonary function Acute myocardial infarction Congestive heart failure (< 1 month) History of inflammatory bowel disease Medical patient at bed rest Age 61-74 Arthroscopic surgery Major open surgery (> 45 min) Laparoscopic surgery (> 45 min) Malignancy Confined to bed (> 72 hours) Immobilizing plaster cast Central venous access Age >= 75 History of VTE Family history of VTE Factor V Leiden Prothrombin [id number] Lupus anticoagulant Anticardiolipin antibodies Elevated serum homocysteine Heparin-induced thrombocytopenia Other congenital or acquired thrombophilia Stroke (< 1 month) Elective arthroplasty Hip, pelvis, or leg fracture Acute spinal cord injury (< 1 month) Prophylaxis Regimen: Total Risk Factor Score Risk Level Prophylaxis Regimen 0-1 Low Early ambulation 2 Moderate Order ONE of the following: *Sequential Compression Device (SCD) *Heparin 5000 units SQ BID 3-4 Higher Order ONE of the following medications: *Heparin 5000 units SQ TID *Enoxaparin/Lovenox 40 mg SQ daily (WT < 150 kg, CrCl > 30 mL/min) *Enoxaparin/Lovenox 30 mg SQ daily (WT < 150 kg, CrCl > 10-29 mL/min) *Enoxaparin/Lovenox 30 mg SQ BID (WT < 150 kg, CrCl > 30 mL/min) AND/OR *Sequential Compression Device (SCD) 5 or more Highest Order ONE of the following medications: *Heparin 5000 units SQ TID (Preferred with Epidurals) *Enoxaparin/Lovenox 40 mg SQ daily (WT < 150 kg, CrCl > 30 mL/min) *Enoxaparin/Lovenox 30 mg SQ daily (WT < 150 kg, CrCl > 10-29 mL/min) *Enoxaparin/Lovenox 30 mg SQ BID (WT < 150 kg, CrCl > 30 mL/min) AND *Sequential Compression Device (SCD) Assessment and Plan - Plan Assessment/plan: 1. Shortness of breath/COPD exacerbation/CHF exacerbation Patient hypoxic in the 80s on 1 L nasal cannula ABG 7.47/34/68/25 BNP 1238 Chest x-ray negative for acute process with improved aeration from previous, personally reviewed Supplemental oxygen as needed Duo nebs IV steroids Levaquin as patient with increased cough and sputum production IV Lasix 2. Chest pain/CAD Status post NSTEMI in April with cardiac catheterization without intervention ( done in [place]) ACS rule out pending; serial troponins/EKGs Initial troponin negative EKG significant for first-degree AV block without ST segment elevation or depression, personally reviewed 3. Acute kidney injury BUN/creatinine 38/2.01, baseline 1.0 from 2017 Monitor renal function Avoid IV fluid hydration given CHF exacerbation 4. Diabetes mellitus Home glipizide Sliding-scale insulin Monitor blood glucose 5. Hypertension/hyperlipidemia Continue home medications FEN N.p.o. Electrolytes: Monitor and replete as needed Heparin
[2018-08-26] MEDS: Heparin - SQ 10,000 UNITS/ML Vial SQ SCH ×4 (00:17→21:31)
[2018-08-26] MEDS: MethylPREDNISolone Sod Succinate Inj 40 MG/ML Vial IV.PUSH SCH ×4 (00:21→21:32)
[2018-08-26] MEDS ORDERED: Sodium Chloride 0.9% 2 ML Flush PRN IV.FLUSH (01:50)
[2018-08-26 03:19] LABS: Creatine Kinase 46 U/L (39-308)
[2018-08-26] MEDS: Insulin NovoLOG Aspart Correctional Sugar Inj SQ SCH ×6 (06:21→21:31)
--- NOTE | 2018-08-26 06:53 | ECG ---
Date Performed: 08/25/2018 Time Performed: 17:01:01 PTAGE: 72 years EKG: Sinus rhythm WITH FIRST DEGREE AV BLOCK WITH OCCASIONAL VENTRICULAR PREMATURE COMPLEXES LEFT ANTERIOR FASCICULAR BLOCK ABNORMAL ECG Compared to prior electrocardiogram, PVCs are less frequent. PREVIOUS TRACING : 07/24/2018 21.18 DOCTOR: Juni Cooley Interpretating Date/Time 08/26/2018 06:52:11
[2018-08-26 08:02] LABS: Baso % (Auto) 0.7 % (0.0-2.0); Eos % (Auto) 0.7 % (0.0-4.0); Hematocrit 37.2 % (39.0-51.0); Hemoglobin 12.3 gm/dL (13.0-17.0); Lymph # (Auto) 0.6 th/mm3 (1.0-4.8); Lymph % (Auto) 15.2 % (9.0-44.0); Mean Corpuscular Hemoglobin 29.7 pg (27.0-34.0); Mean Platelet Volume 10.3 fL (7.0-11.0); Mono # (Auto) 0.2 th/mm3 (0.0-0.9); Mono % (Auto) 3.8 % (0.0-8.0); Neut # (Auto) 3.3 th/mm3 (1.8-7.7); Neut % (Auto) 79.6 % (16.0-70.0); Platelet Count 133 th/mm3 (150-450); Red Blood Count 4.13 mil/mm3 (4.50-5.90); Red Cell Distribution Width 15.4 % (11.6-17.2); White Blood Count 4.1 th/mm3 (4.0-11.0)
[2018-08-26 08:26] LABS: Anion Gap 7 meq/L (5-15); Blood Urea Nitrogen 35 mg/dL (7-18); Calcium 8.8 mg/dL (8.5-10.1); Carbon Dioxide 26.9 meq/L (21.0-32.0); Chloride 109 meq/L (98-107); Glomerular Filtration Rate 42 mL/min (>89); Glucose,Random 127 mg/dL (74-106); Potassium 3.9 meq/L (3.5-5.1); Sodium 143 meq/L (136-145)
[2018-08-26 08:32] LABS: Creatine Kinase 41 U/L (39-308)
--- NOTE | 2018-08-26 09:46 | P.PN ---
Subjective Interval history: Patient at the margin of the bed. He is with some sob , no wheezing at this time. Some cough brownish drk color. No fever or chills overnight. NO n/v/d/c. Not much appetite but able to keep down food. Physical Exam Vital signs: Vital Signs 08/25/18 16:48 08/25/18 17:19 08/25/18 19:11 Temperature 97.7 F Pulse Rate 77 70 68 Respiratory Rate 18 26 H 20 Blood Pressure 142/67 H 132/86 108/59 L Pulse Oximetry 95 95 08/25/18 19:38 08/25/18 19:51 08/25/18 21:28 Temperature Pulse Rate 71 Respiratory Rate 20 18 16 Blood Pressure 110/60 Pulse Oximetry 91 L 08/26/18 00:00 08/26/18 00:30 08/26/18 04:00 Temperature 97.7 F Pulse Rate 74 75 72 Respiratory Rate 19 17 Blood Pressure 140/69 119/67 Pulse Oximetry 94 L 92 L 08/26/18 07:35 08/26/18 07:56 Temperature 98.3 F Pulse Rate 96 H Respiratory Rate 20 Blood Pressure 160/91 H Pulse Oximetry 94 L 95 Intake & Output 08/25/18 08/26/18 08/26/18 18:59 06:59 18:59 Intake Total 150 / 150 Balance 150 / 150 Weight 117.027 kg 117.02 kg Intake: IV 150 / 150 Levaquin 750 mg Premix Inj 150 150 / 150 ML @ 100 mls/hr IV.SIG Q48H [facility] Rx#:[id number] Other: Date of Last Bowel Movement 08/25/18 Weight On Admission 117.02 kg Narrative: Gen.: Pleasant 72 yo male, appears in no acute distress. Cardiovascular: Regular rate and rhythm. No murmurs, rubs or gallops. Respiratory: Poor air movement. Bilateral rhonchi. Abdomen: Soft, nontender, nondistended. No peritoneal signs. Musculoskeletal: No gross deformities. 2+ edema bilaterally Skin: No obvious rashes or erythema. Neuro: Sensory and motor grossly intact. Cranial nerves II through XII grossly intact. Results - Labs CBC & Chem 7: 08/26/18 06:11 08/26/18 06:11 Laboratory Results - last 24 hr 08/25/18 08/25/18 08/25/18 17:38 17:38 17:38 WBC 4.9 RBC 4.34 L Hgb 13.2 Hct 39.3 MCV 90.5 MCH 30.3 MCHC 33.5 RDW 15.8 Plt Count 138 L MPV 10.4 Neut % (Auto) 56.4 Lymph % (Auto) 26.3 [place] % (Auto) 12.6 H Eos % (Auto) 4.0 Baso % (Auto) 0.7 Neut # (Auto) 2.8 Lymph # (Auto) 1.3 [place] # (Auto) 0.6 Eos # (Auto) 0.2 Baso # (Auto) 0.0 WBC Differential . Differential Comment Auto diff final PT 11.5 INR 1.1 APTT 23.8 L Puncture Site Patient Temperature O2 Saturation ABG pH ABG pCO2 ABG pO2 ABG HCO3 ABG O2 Content ABG Base Excess ABG Methemoglobin Yariel Test Hemoglobin Carboxyhemoglobin O2 Delivery Device Liter Flow Critical Value Sodium 142 Potassium 3.7 Chloride 105 Carbon Dioxide 28.4 Anion Gap 9 BUN 38 H Creatinine 2.01 H Estimated GFR 33 L POC Glucose Random Glucose 128 H Calcium 8.8 Total Bilirubin 0.5 AST 15 ALT 14 Alkaline Phosphatase 35 L Total Creatine Kinase Troponin I Less than 0.02 L B-Natriuretic Peptide Total Protein 7.2 Albumin 3.9 08/25/18 08/25/18 08/26/18 17:38 21:15 02:50 WBC RBC Hgb Hct MCV MCH MCHC RDW Plt Count MPV Neut % (Auto) Lymph % (Auto) [place] % (Auto) Eos % (Auto) Baso % (Auto) Neut # (Auto) Lymph # (Auto) [place] # (Auto) Eos # (Auto) Baso # (Auto) WBC Differential Differential Comment PT INR APTT Puncture Site Left radial Patient Temperature 98.6 O2 Saturation 92 ABG pH 7.48 H ABG pCO2 34 L ABG pO2 68 ABG HCO3 25 ABG O2 Content 16.6 ABG Base Excess 1.7 ABG Methemoglobin 0.5 Yariel Test Present Hemoglobin 12.8 Carboxyhemoglobin 1.8 O2 Delivery Device Liter Flow Critical Value No Sodium Potassium Chloride Carbon Dioxide Anion Gap BUN Creatinine Estimated GFR POC Glucose Random Glucose Calcium Total Bilirubin AST ALT Alkaline Phosphatase Total Creatine Kinase 46 Troponin I Less than 0.02 L B-Natriuretic Peptide 1238 H Total Protein Albumin 1008/26/18 08/26/18 03:56 06:11 06:11 WBC 4.1 RBC 4.13 L Hgb 12.3 L Hct 37.2 L MCV 90.0 MCH 29.7 MCHC 33.0 RDW 15.4 Plt Count 133 L MPV 10.3 Neut % (Auto) 79.6 H Lymph % (Auto) 15.2 [place] % (Auto) 3.8 Eos % (Auto) 0.7 Baso % (Auto) 0.7 Neut # (Auto) 3.3 Lymph # (Auto) 0.6 L [place] # (Auto) 0.2 Eos # (Auto) 0.0 Baso # (Auto) 0.0 WBC Differential . Differential Comment Auto diff final PT INR APTT Puncture Site Patient Temperature O2 Saturation ABG pH ABG pCO2 ABG pO2 ABG HCO3 ABG O2 Content ABG Base Excess ABG Methemoglobin Yariel Test Hemoglobin Carboxyhemoglobin O2 Delivery Device Liter Flow Critical Value Sodium 143 Potassium 3.9 Chloride 109 H Carbon Dioxide 26.9 Anion Gap 7 BUN 35 H Creatinine 1.61 H Estimated GFR 42 L POC Glucose 109 Random Glucose 127 H Calcium 8.8 Total Bilirubin AST ALT Alkaline Phosphatase Total Creatine Kinase 41 Troponin I Less than 0.02 L B-Natriuretic Peptide Total Protein Albumin 08/26/18 08:01 WBC RBC Hgb Hct MCV MCH MCHC RDW Plt Count MPV Neut % (Auto) Lymph % (Auto) [place] % (Auto) Eos % (Auto) Baso % (Auto) Neut # (Auto) Lymph # (Auto) [place] # (Auto) Eos # (Auto) Baso # (Auto) WBC Differential Differential Comment PT INR APTT Puncture Site Patient Temperature O2 Saturation ABG pH ABG pCO2 ABG pO2 ABG HCO3 ABG O2 Content ABG Base Excess ABG Methemoglobin Yariel Test Hemoglobin Carboxyhemoglobin O2 Delivery Device Liter Flow Critical Value Sodium Potassium Chloride Carbon Dioxide Anion Gap BUN Creatinine Estimated GFR POC Glucose 162 H Random Glucose Calcium Total Bilirubin AST ALT Alkaline Phosphatase Total Creatine Kinase Troponin I B-Natriuretic Peptide Total Protein Albumin - Imaging Impressions Chest X-Ray 08/25/18 17:36 CONCLUSION: 1. Bibasilar atelectatic changes/scarring, right greater than left. There is actually improved aeration in both bases when compared to the prior. 2. Compensated cardiomegaly. Assessment and Plan - Plan 1. Shortness of breath/COPD exacerbation/CHF exacerbation Patient hypoxic in the 80s on 1 L nasal cannula ABG 7.47/34/68/25 BNP 1238 Chest x-ray negative for acute process with improved aeration from previous, personally reviewed Supplemental oxygen as needed Duo nebs IV steroids Levaquin as patient with increased cough and sputum production Continue IV Lasix, monitor kidney function as well as urine OP 2. Chest pain/CAD Status post NSTEMI in April with cardiac catheterization without intervention ( done in [place]) ACS rule out pending; serial troponins/EKGs neg EKG significant for first-degree AV block without ST segment elevation or depression, personally reviewed 3. Acute kidney injury BUN/creatinine 38/2.01, baseline 1.0 from 2017 Monitor renal function Avoid IV fluid hydration given CHF exacerbation 4. Diabetes mellitus Home glipizide Sliding-scale insulin Monitor blood glucose 5. Hypertension/hyperlipidemia Continue home medications FEN Electrolytes: Monitor and replete as needed DVT ppx with Heparin Poss DC tomorrow if improves
--- NOTE | 2018-08-26 09:50 | ECG ---
Date Performed: 08/26/2018 Time Performed: 05:12:47 PTAGE: 72 years EKG: Sinus rhythm WITH MARKED SINUS ARRHYTHMIA WITH FIRST DEGREE AV BLOCK Versus premature atrial contractions LEFT AN TERIOR FASCICULAR BLOCK ABNORMAL ECG No significant change from prior electrocardiogram. PREVIOUS TRACING : 08/26/2018 00.26 DOCTOR: Juni Cooley Interpretating Date/Time 08/26/2018 09:49:16
[2018-08-26] MEDS: Fenofibrate 145 MG Tablet PO SCH (09:51)
[2018-08-26] MEDS: Carvedilol 12.5 MG Tablet PO SCH ×2 (09:51→21:32)
[2018-08-26] MEDS: Senna/Docusate Sodium 8.6/50 MG Tablet PO SCH ×3 (09:51→21:32)
--- NOTE | 2018-08-26 09:53 | ECG ---
Date Performed: 08/26/2018 Time Performed: 00:26:57 PTAGE: 72 years EKG: Sinus rhythm WITH OCCASIONAL VENTRICULAR PREMATURE COMPLEXES MARKED LEFT AXIS DEVIATION INTRAVENTRICULAR CONDUCTI ON DELAY POSSIBLE LATERAL MYOCARDIAL INFARCTION ABNORMAL ECG No significant change from prior electro cardiogram. PREVIOUS TRACING : 08/25/2018 17.01 DOCTOR: Juni Cooley Interpretating Date/Time 08/26/2018 09:52:31
[2018-08-26] MEDS: Sodium Chloride 0.9% 2 ML Flush BID IV.FLUSH SCH ×2 (10:38→21:32)
--- NOTE | 2018-08-26 17:53 | ECHRPT ---
Indication: HEART FAILURE CONCLUSIONS The left ventricular systolic function is normal with an estimated ejection fraction in the range of 60-65%. Mild concentric left ventricular hypertrophy. Doppler parameters are consistent with a pseudonormal left ventricular filling pattern with concomin ant abnormal relaxation and increased filling pressure (grade 2 diastolic dysfunction). Trace mitral valve regurgitation. Trace aortic valve regurgitation. There is trace tricuspid valve regurgitation. BP: / HR: Rhythm: MEASUREMENTS (Male / Female) Normal Values Technical Quality: 2D ECHO LV Diastolic Diameter PLAX 5.7 cm 4.2 - 5.9 / 3.9 - 5.3 cm LV Systolic Diameter PLAX 3.6 cm IVS Diastolic Thickness 1.5 cm 0.6 - 1.0 / 0.6 - 0.9 cm LVPW Diastolic Thickness 1.3 cm 0.6 - 1.0 / 0.6 - 0.9 cm LV Relative Wall Thickness 0.5 RV Internal Dim ED PLAX 4.7 cm LVOT Diameter 2.4 cm Aortic Root Diameter 3.8 cm LA Systolic Diameter LX 4.9 cm 3.0 - 4.0 / 2.7 - 3.8 cm M-MODE Aortic Root Diameter MM 4.3 cm LA Systolic Diameter MM 5.9 cm LA Ao Ratio MM 1.4 AV Cusp Separation MM 2.0 cm DOPPLER AV Peak Velocity 97.7 cm/s AV Peak Gradient 3.8 mmHg LVOT Peak Velocity 77.5 cm/s LVOT Peak Gradient 2.4 mmHg AV Area Cont Eq pk 3.6 cm Mitral E Point Velocity 60.2 cm/s Mitral A Point Velocity 57.3 cm/s Mitral E to A Ratio 1.1 LV E' Septal Velocity 4.5 cm/s Mitral E to LV E' Septal Ratio 13.4 TR Peak Velocity 228.0 cm/s TR Peak Gradient 20.8 mmHg Right Atrial Pressure 10.0 mmHg Pulmonary Artery Systolic Pressu 30.8 mmHg Right Ventricular Systolic Press 30.8 mmHg PV Peak Velocity 80.1 cm/s PV Peak Gradient 2.6 mmHg FINDINGS LEFT VENTRICLE Normal left ventricular size. Mild concentric left ventricular hypertrophy. The left ventricular systolic function is normal with an estimated ejection fraction in the range of 60-65%. There was limited left ventricular wall motion assessment due to poor endocardial visualization. Doppler parameters are consistent with a pseudonormal left ventricular filling pattern with concomin ant abnormal relaxation and increased filling pressure (grade 2 diastolic dysfunction). RIGHT VENTRICLE Grossly normal LEFT ATRIUM The left atrial size is mildly dilated. RIGHT ATRIUM The right atrial size is normal. ATRIAL SEPTUM Normal atrial septal thickness AORTA The aortic root and proximal ascending aorta are normal in size on limited imaging. MITRAL VALVE Grossly normal Trace mitral valve regurgitation. AORTIC VALVE Trileaflet aortic valve. Trace aortic valve regurgitation. No aortic valve stenosis. TRICUSPID VALVE Grossly normal There is trace tricuspid valve regurgitation. The estimated pulmonary arterial pressure is 31 mmHg. PULMONARY VALVE No pulmonary valve regurgitation or stenosis. VESSELS The inferior vena cava is normal in size. PERICARDIUM No pericardial effusion. Colton Worthington DO (Electronically Signed) Final Date:26 August 2018 17:52
[2018-08-27 03:48] VITALS: RESP 18; TEMP 97.8
[2018-08-27] MEDS: Insulin NovoLOG Aspart Correctional Sugar Inj SQ SCH ×2 (03:51→08:25)
[2018-08-27 04:44] LABS: Calcium 9.2 mg/dL (8.5-10.1); Carbon Dioxide 29.1 meq/L (21.0-32.0); Potassium 4.2 meq/L (3.5-5.1)
--- NOTE | 2018-08-27 05:40 | MB ---
cc: Colton Worthington DO DATE: 08/26/2018 REASON FOR CONSULTATION: Congestive heart failure. HISTORY OF PRESENT ILLNESS: Gonzales Hwang is a pleasant 72-year-old male who sees my partner, Dr. Noyola, in the office and presented to [facility] due to shortness of breath. He states that over the past few days, he has been getting more significantly short of breath and there is some swelling in his legs. He has also noticed paroxysmal nocturnal dyspnea. He has some mild pain on the right side of his chest, which is nonradiating. He was previously here around 1 month ago and had a similar type episode. At that time, he was felt to have diastolic heart failure and we had discussed limiting his fluid intake, watching his diet for salt which he had not done, and changing his diuretic to Bumex. Since being discharged, he did not watch how much fluid he takes in. He has tried to decrease the amount of salt that he uses and no longer salt food. They still eat out, but not as much. Lastly, he was still taking his Lasix trying to finish it up before starting his Bumex. In seeing him, he denies current chest pain, shortness of breath or palpitations. He is bringing up a little bit of mucus, which is clear to [place] in color. PAST MEDICAL HISTORY: 1. Asthma. 2. Chronic diastolic heart failure. 3. Mild coronary artery disease by cardiac catheterization (04/2018 in [place]). 4. Diabetes mellitus. 5. Hyperlipidemia. 6. Myocardial infarction (04/2018, felt to be type 2 in nature). PAST SURGICAL HISTORY: 1. Cardiac catheterization (04/2018, [place]) with mild coronary artery disease. 2. Melanoma excision. 3. Knee surgery. 4. Appendectomy. ALLERGIES: SULFA. MEDICATIONS: 1. Methocarbamol 500 mg q.i.d. as needed. 2. Latanoprost 1 drop every night. 3. Fenofibrate 160 mg daily. 4. Glipizide 2.5 mg daily. 5. Coreg 12.5 mg b.i.d. 6. Aspirin 81 mg daily. 7. Anoro Ellipta 62.5/25 mg daily. 8. Albuterol as needed. 9. Lasix 60 mg b.i.d. 10. Lipitor 80 mg daily. 11. Acetaminophen/codeine 300/60 mg every 6 hours as needed. FAMILY HISTORY: Denies premature coronary artery disease or sudden cardiac within the family. SOCIAL HISTORY: The patient is a previous smoker, quitting in 1983. Denies alcohol or drug abuse. REVIEW OF SYSTEMS: Fourteen systems were reviewed including osteopathic. Pertinent positives and negatives above, otherwise negative. PHYSICAL EXAMINATION: VITAL SIGNS: Temperature 98.5, heart rate 78, blood pressure 119/54, respirations 20, pulse oximetry 93% on 2 liters. GENERAL: The patient appears well in no acute distress. Alert, awake and oriented x3. HEENT: Extraocular muscles intact. Mucous membranes moist. NECK: Supple. No JVD noted bilaterally. Carotid upstroke is brisk in nature. HEART: Regular rate and rhythm. Positive first and second heart sounds with a 1/6 systolic murmur noted at the apex. LUNGS: Decreased breath sounds bilaterally. No overt wheezes, rales or rhonchi. ABDOMEN: Soft, nontender, nondistended. No organomegaly noted. EXTREMITIES: Have 1 plus pitting edema with chronic changes. NEUROLOGIC: No focal deficits. SKIN: Warm, dry and intact. OSTEOPATHIC: Mild lordosis. No kyphoscoliosis or paraspinal tender points. LABORATORY DATA: Hemoglobin 12.3, hematocrit 37.2, platelets 133. Potassium 3.9, BUN 35, creatinine 1.61. Troponin negative x3. BNP 1238. Electrocardiogram (10/26/2018 at 05:12): Sinus rhythm with sinus arrhythmia, first degree AV block, left anterior fascicular block, nonspecific ST-T wave changes. IMPRESSION: 1. Acute on chronic diastolic failure with a previous LVEDP of 41 (by cardiac catheterization in 04/2018). 2. Noncompliance with medications, sodium intake, and fluid restriction. 3. Asthma. 4. Recent pneumonia. 5. Acute kidney injury. 6. Noncardiac chest pain. RECOMMENDATIONS: 1. Mr. Hwang presented with similar symptoms as 1 month ago. It appears that he has acute diastolic heart failure, most likely due to fluid indiscretion as well as dietary sodium intake. Lastly, I suggested that he be switched to Bumex upon last discharge as the bioavailability mainly is more beneficial to him, but he has not started this. 2. Previous cardiac catheterization. He had a significantly elevated LVEDP of 40 on an echo showing a normal ejection fraction. He has been diagnosed at the time with chronic diastolic heart failure and no significant coronary artery disease. 3. We will diurese him as possible and he should be started on Bumex upon discharge, which he has at home, but has not started taking. 4. Once again, I spoke to him about his salt intake at home and he states that he has done better, but his admits to eating this week as well as eating out a few times. 5. Further recommendations will be made based on the hospital course. Thank you for allowing me to see Gonzales Hwang. If there are any questions, please do not hesitate to call. DO JULES Oconnor/sv/kd , 11:37 PM , 11:51 PM
[2018-08-27] MEDS: MethylPREDNISolone Sod Succinate Inj 40 MG/ML Vial IV.PUSH SCH (06:20)
[2018-08-27] MEDS: Heparin - SQ 10,000 UNITS/ML Vial SQ SCH (06:20)
[2018-08-27 08:00] VITALS: BP 117/57; PULSE 72; O2SAT 94
[2018-08-27] MEDS: Carvedilol 12.5 MG Tablet PO SCH (09:03)
[2018-08-27] MEDS: Fenofibrate 145 MG Tablet PO SCH (09:03)
[2018-08-27] MEDS: Senna/Docusate Sodium 8.6/50 MG Tablet PO SCH (09:03)
[2018-08-27] MEDS: Sodium Chloride 0.9% 2 ML Flush BID IV.FLUSH SCH (09:04)
--- NOTE | 2018-08-27 10:05 | P.DS ---
Date of admission: 08/25/18 20:07 Primary care physician: No Primary Care Physician Brief History from admission: 72-year-old male with a past medical history significant for coronary artery disease status post MD on last , CHF, COPD, diabetes mellitus, hypertension and hyperlipidemia presents to the emergency department for evaluation of shortness of breath and chest pain. Patient reports approximately 2 days ago his shortness of breath acutely worsened. He endorses associated paroxysmal nocturnal dyspnea. He denies any increased edema. He has also had left-sided chest pain times 2 days that is nonradiating. He denies fever/chills. No abdominal pain. No nausea/vomiting/diarrhea. No lateralizing signs/symptoms. The patient also endorses an increased cough for the past several days that is productive of dark colored sputum. DS: Diagnosis - Discharge Diagnosis (1) Acute on chronic diastolic (congestive) heart failure Status: Acute (2) CHF exacerbation Status: Acute (3) Chest pain Status: Acute (4) Chronic diastolic heart failure Status: Acute (5) Mild coronary artery disease Status: Acute (6) Pneumonia Status: Acute (7) SOB (shortness of breath) Status: Acute DS: Medications - Discharge Medications Prescriptions: budesonide 2 ml INHALATION BID 30 Days ml cefuroxime axetil 250 mg PO Q12H #14 tab Lactobacillus acidoph-L.bulgar [Lactinex] 1 tab PO DAILY #30 tab prednisone 40 mg PO DAILY #5 tab DS: Summary Hospital Course: 1. Shortness of breath/COPD exacerbation/CHF exacerbation Patient hypoxic in the 80s on 1 L nasal cannula. ABG 7.47/34/68/25 on admission BNP 1238 Chest x-ray negative for acute process with improved aeration from previous, personally reviewed Supplemental oxygen as needed Duo nebs IV steroids, tapered and give p.o. at discharge Levaquin as patient with increased cough and sputum production. Continue IV Lasix, monitor kidney function as well as urine OP. Patient to continue Lasix as outpatient 2. Chest pain/CAD Status post NSTEMI in April with cardiac catheterization without intervention ( done in [place]) ACS rule out pending; serial troponins/EKGs neg EKG significant for first-degree AV block without ST segment elevation or depression, personally reviewed 3. Acute kidney injury BUN/creatinine 38/2.01, baseline 1.0 from 2017 Monitor renal function Avoid IV fluid hydration given CHF exacerbation 4. Diabetes mellitus Home glipizide Sliding-scale insulin Monitor blood glucose 5. Hypertension/hyperlipidemia Continue home medications FEN Electrolytes: Monitor and replete as needed DVT ppx with Heparin The patient improved significantly. He is saturating well. Has a good urine output. His edema improved. Not coughing much. Patient discharged home in stable condition to follow-up as outpatient with PCP and consultants - Time Spent with Patient Total time spent providing and/or coordinating discharge services: Greater than 30 minutes - Quality: VTE Deep Vein Thrombosis/Pulmonary Embolism Present on Admission: No Exam Vital signs: Vital Signs 08/26/18 11:47 08/26/18 16:04 08/26/18 19:00 Temperature 98.3 F 98.5 F Pulse Rate 75 78 Respiratory Rate 20 20 Blood Pressure 122/57 L 119/54 L Pulse Oximetry 95 93 L 93 L 08/26/18 20:00 08/26/18 22:16 08/26/18 23:47 Temperature 98.7 F 98.4 F Pulse Rate 75 80 Respiratory Rate 19 19 Blood Pressure 143/65 H 113/58 L Pulse Oximetry 93 L 95 93 L 08/27/18 03:45 08/27/18 04:00 08/27/18 04:30 Temperature 97.8 F Pulse Rate 77 77 69 Respiratory Rate 18 Blood Pressure 111/54 L Pulse Oximetry 95 08/27/18 07:59 08/27/18 08:00 Temperature Pulse Rate 72 72 Respiratory Rate 18 Blood Pressure 117/57 L Pulse Oximetry 94 L Intake & Output 08/26/18 08/27/18 08/27/18 18:59 06:59 18:59 Intake Total 240 / 240 Output Total 350 / 350 Balance -110 / -110 Intake: Oral 240 / 240 Output: Urine 350 / 350 Other: # Voids 4 2 Date of Last Bowel Movement 08/25/18 Narrative: Gen.: Pleasant 72 yo male, appears in no acute distress. Cardiovascular: Regular rate and rhythm. No murmurs, rubs or gallops. Respiratory: Poor air movement. Bilateral rhonchi. Abdomen: Soft, nontender, nondistended. No peritoneal signs. Musculoskeletal: No gross deformities. 2+ edema bilaterally Skin: No obvious rashes or erythema. Neuro: Sensory and motor grossly intact. Cranial nerves II through XII grossly intact. Results Procedures completed during hospitalization: none Labs on day of discharge: Labs from last 24 hours 08/27/18 08/27/18 08/27/18 07:44 03:49 03:46 Sodium 143 Potassium 4.2 Chloride 107 Carbon Dioxide 29.1 Anion Gap 7 BUN 45 H Creatinine 1.86 H Estimated GFR 36 L POC Glucose 135 H 182 H Random Glucose 174 H Calcium 9.2 B-Natriuretic Peptide 08/26/18 08/26/18 08/26/18 20:56 18:09 12:06 Sodium Potassium Chloride Carbon Dioxide Anion Gap BUN Creatinine Estimated GFR POC Glucose 183 H 169 H Random Glucose Calcium B-Natriuretic Peptide 1019 H 08/26/18 11:51 Sodium Potassium Chloride Carbon Dioxide Anion Gap BUN Creatinine Estimated GFR POC Glucose 140 H Random Glucose Calcium B-Natriuretic Peptide - Impressions ITS Impressions Chest X-Ray 08/25/18 17:36 CONCLUSION: 1. Bibasilar atelectatic changes/scarring, right greater than left. There is actually improved aeration in both bases when compared to the prior. 2. Compensated cardiomegaly. Discharge Plan - Discharge Disposition Patient Disposition: /Home Health Service - Discharge Condition Condition: Stable - Discharge Order Discharge Orders: Discharge Order (Routine); Ordered 08/27/18 Ordered By: Lori Zepeda - Discharge Details Anticipated Discharge Date: 08/27/18 - Physicians Team Primary Care Provider: Primary Care Hyacinth,Marisela Attending Provider: Lori Zepeda Other Providers: Colton Worthington DO
== END 2018-08-27 10:26 | disposition home health service (06) ==
LOC: NEDA 16:45 → NEPC 16:45 → NEPFCDU 23:25 → NEDH 08-27 09:54 → NEPFCDU 08-27 09:55
PROVIDERS: ADMIT Hospitalist; ATTEND Hospitalist

== ENCOUNTER 2018-09-07 05:57 | Inpatient (IN) ==
[2018-09-07] MEDS ORDERED: MethylPREDNISolone Sod Succinate Inj 125 MG/2 ML Vial IV.PUSH ONE (06:22)
[2018-09-07 06:45] LABS: Baso # (Auto) 0.1 th/mm3 (0.0-0.2); Baso % (Auto) 1.3 % (0.0-2.0); Eos # (Auto) 0.2 th/mm3 (0.0-0.4); Eos % (Auto) 3.1 % (0.0-4.0); Hematocrit 43.4 % (39.0-51.0); Lymph # (Auto) 1.4 th/mm3 (1.0-4.8); Lymph % (Auto) 27.5 % (9.0-44.0); Mean Corpuscular HGB Conc 32.1 % (32.0-36.0); Mean Corpuscular Hemoglobin 30.1 pg (27.0-34.0); Mean Corpuscular Volume 93.8 fL (80.0-100.0); Mean Platelet Volume 10.1 fL (7.0-11.0); Mono # (Auto) 0.5 th/mm3 (0.0-0.9); Mono % (Auto) 11.1 % (0.0-8.0); Neut # (Auto) 2.8 th/mm3 (1.8-7.7); Platelet Count 136 th/mm3 (150-450); Red Blood Count 4.63 mil/mm3 (4.50-5.90); Red Cell Distribution Width 16.5 % (11.6-17.2); White Blood Count 4.9 th/mm3 (4.0-11.0)
[2018-09-07 06:57] LABS: Alanine Aminotransferase 22 U/L (12-78); Albumin 3.8 g/dL (3.4-5.0); Anion Gap 8 meq/L (5-15); Aspartate Aminotransferase 16 U/L (15-37); Blood Urea Nitrogen 28 mg/dL (7-18); Calcium 9.1 mg/dL (8.5-10.1); Carbon Dioxide 29.3 meq/L (21.0-32.0); Chloride 108 meq/L (98-107); Glomerular Filtration Rate 42 mL/min (>89); Glucose,Random 113 mg/dL (74-106); Potassium 3.9 meq/L (3.5-5.1); Sodium 145 meq/L (136-145)
--- NOTE | 2018-09-07 06:57 | XR ---
EXAM DATE: 09/07/2018 6:43 AM EST AGE/SEX: 72 years / Male INDICATIONS: Shortness of breath and chest pain today. CLINICAL DATA: This is the patient's initial encounter. Patient reports that signs and symptoms have been present for 1 day and indicates a pain score of 5/10. MEDICAL/SURGICAL HISTORY: . Asthma. Congestive heart failure. Diabetes. Myocardial infarction. Hyperlipidemia. Sleep apnea. Coronary artery disease. COPD. . Cardiac catheterization. COMPARISON: [facility] [place], CHEST 2V PA&LAT, 08/25/2018. . FINDINGS: There is mild vascular congestion and basilar parenchymal opacity, similar to prior. Cardiac contours are grossly unchanged. CONCLUSION: Vascular congestion and basilar parenchymal opacities with appearance similar to prior exam Electronically signed by: Yash Brooks MD 09/07/2018 6:55 AM EST
[2018-09-07 07:00] LABS: Alkaline Phosphatase 39 U/L (45-117)
--- NOTE | 2018-09-07 07:05 | ED ---
HPI General Chief Complaint: Shortness of Breath/Dyspnea Stated Complaint: sob/chest pain Time Seen by Provider: 09/07/18 06:17 Mode of arrival: ambulatory Limitations: no limitations History of Present Illness 72-year-old male came to the emergency room with his with history of shortness of breath that started last night. Patient has history of COPD, congestive heart failure, diabetes. Patient says that he is also been experiencing some substernal chest pressure. He had a cardiac catheterization done in April 2018 which was negative. Patient did not need any stents at that time. No history of fever or chills. Patient says that they drove from [place] mid-July to get to [place]. 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 Shortness of breath is worsened on exertion. No radiation of the pain. Patient requires 3 L of oxygen on a as needed basis. He was 95% oxygen saturation in triage. Patient also has sleep apnea and requires CPAP at night. He has been taking all his medications and CPAP as he is supposed to. MD Complaint: Reports shortness of breath Onset (ago): hour(s) Severity: moderate Consistency/Duration: constant Exacerbating factors: exertion Known history of: Reports COPD and diabetes Related Data Home Medications Medication Instructions Recorded Confirmed albuterol sulfate 2.5 mg INHALATION Q4-6H PRN 07/24/18 09/07/18 aspirin 81 mg PO DAILY 07/24/18 09/07/18 carvedilol [Coreg] 12.5 mg PO BID 07/24/18 09/07/18 fenofibrate 160 mg PO DAILY 07/24/18 09/07/18 glipizide 2.5 mg PO DAILY 07/24/18 09/07/18 latanoprost 1 drp OPHTHALMIC (EYE) QPM 07/24/18 09/07/18 methocarbamol 500 mg PO QID PRN 07/24/18 09/07/18 umeclidinium-vilanterol [Anoro 1 inh INHALATION Q24H 07/24/18 09/07/18 Ellipta] atorvastatin 80 mg PO DAILY 08/25/18 09/07/18 Previous Rx's Medication Instructions Recorded budesonide 2 ml INHALATION BID 30 Days ml 08/27/18 azithromycin [Zithromax] 500 mg PO DAILY #5 tab 09/10/18 bumetanide 1 mg PO BID #60 tab 09/10/18 guaifenesin [Mucinex] 600 mg PO BID #15 tab 09/10/18 Allergies Allergy/AdvReac Type Severity Reaction Status Date / Time Sulfa (Sulfonamide Allergy Mild Nausea/Vomi Verified 09/07/18 05:59 Antibiotics) ting Review of Systems ROS: all other systems reviewed are negative [facility] Medical History Medical History Asthma (Acute) CHF (congestive heart failure) (Acute) Diabetes (Acute) HTN (hypertension) (Acute) High cholesterol (Acute) Myocardial infarction (Acute) Surgical History Surgical History H/O melanoma excision (Acute) History of knee surgery (Acute) Hx of appendectomy (Acute) Status post cardiac catheterization (Acute) Family History Family History Father FH: CABG (coronary artery bypass surgery) Mother Heart disease Social History Social History Substance History: No History of Abuse Second Hand Smoke Exposure: No Smoking Status: Former smoker Tobacco Type: Cigarettes How Often Do You Have a Drink Containing Alcohol: 2 to 4 times a month Recent Travel in [facility] within the Last 8 Weeks: No Recent Out of Country Travel within the Last 8 Weeks: No Immunization History Tetanus Immunization: Unsure Exam Narrative Exam Narrative: GENERAL: Awake, alert, morbidly obese, moderate distress SKIN: Focused skin assessment warm/dry. HEAD: Atraumatic. Normocephalic. EYES: Pupils equal and round. No scleral icterus. No injection or drainage. ENT: No nasal bleeding or discharge. Mucous membranes pink and moist. NECK: Trachea midline. No JVD. CARDIOVASCULAR: Regular rate and rhythm. No murmur appreciated. RESPIRATORY: Accessory muscles of respiration involved. Slight decreased air entry bilaterally. GASTROINTESTINAL: Abdomen soft, non-tender, nondistended. Hepatic and splenic margins not palpable. MUSCULOSKELETAL: No obvious deformities. No clubbing. No cyanosis. 2+ bilateral pedal edema NEUROLOGICAL: Awake and alert. No obvious cranial nerve deficits. Motor grossly within normal limits. Normal speech. PSYCHIATRIC: Appropriate mood and affect; insight and judgment normal. Course Initial Documented Vital Signs Temperature 97.2 F L 09/07/18 05:59 Pulse Rate 86 09/07/18 05:59 Respiratory Rate 22 09/07/18 05:59 Blood Pressure 144/71 H 09/07/18 05:59 Pulse Oximetry 93 L 09/07/18 05:59 Last Documented Vital Signs Temperature 97.4 F L 09/10/18 08:00 Pulse Rate 68 09/10/18 11:46 Respiratory Rate 22 09/10/18 11:46 Blood Pressure 138/62 09/10/18 08:00 Pulse Oximetry 93 L 09/10/18 08:00 Sign Out Sign Out Data: Patient Sign Out occurred on 09/07/18 at 07:13. Patient's care was discussed, and care was transferred from Sondra Moe to Elaina Valadez DO. Sign Out Comment: Shortness of breath with chest pressure. On blood test results. CT pulmonary angiogram. Patient will require admission. Last updated by Sondra Moe MD at 09/07/18 06:57 Post-Handoff Eval: 72yo M here with sob since last night. Received sign out to follow up on labs and order CT pulmonary angiogram and admit patient. Labs reviewed, no leukocytosis. H/H normal. BUN/creatinine mildly elevated at 28/1.62. This is about baseline. BNP is elevated at 1559. CXR showed vascular congestion and basilar parenchymal opacities with appearance similar to prior exam. Clinically , my impression is CHF exacerbation. Pt has bilateral basilar crackles, bilateral lower extremity edema. However, will need to r/o ACS as well. Pt already received methylprednisolone, duonebs, lasix by previous team. He is still complaining of substernal chest pain that has been going on since last night. Will give nitroglycerin. Pt already took aspirin today. CTA showed no PE. Bibasilar consolidation greater right lower lobe likely infiltrate. Pt still does not feel well. Covered with broad spectrum antibiotics for HCAP. Also need to rule out ACS. Discussed with Dr. Stanley and accepted to his service. Medical Decision Making MDM Narrative Medical decision making narrative: 7:04 AM I have ordered a nebulizer, IV Solu- Medrol and IV Lasix with the patient. Awaiting for blood test result. Case has been signed over to the [facility] ER physician. Medical Screen Exam Complete: Yes Emergency Medical Condition: Yes Lab Data Result diagrams: 09/09/18 13:54 09/09/18 04:34 Lab Results 09/07/18 09/07/18 09/07/18 Range/Units 06:30 06:30 06:30 WBC 4.9 (4.0-11.0) th/mm3 RBC 4.63 (4.50-5.90) mil/mm3 Hgb 14.0 (13.0-17.0) gm/dL Hct 43.4 (39.0-51.0) % MCV 93.8 (80.0-100.0) fL MCH 30.1 (27.0-34.0) pg MCHC 32.1 (32.0-36.0) % RDW 16.5 (11.6-17.2) % Plt Count 136 L (150-450) th/mm3 MPV 10.1 (7.0-11.0) fL Neut % (Auto) 57.0 (16.0-70.0) % Lymph % (Auto) 27.5 (9.0-44.0) % [place] % (Auto) 11.1 H (0.0-8.0) % Eos % (Auto) 3.1 (0.0-4.0) % Baso % (Auto) 1.3 (0.0-2.0) % Neut # (Auto) 2.8 (1.8-7.7) th/mm3 Lymph # (Auto) 1.4 (1.0-4.8) th/mm3 [place] # (Auto) 0.5 (0.0-0.9) th/mm3 Eos # (Auto) 0.2 (0.0-0.4) th/mm3 Baso # (Auto) 0.1 (0.0-0.2) th/mm3 WBC Differential . Differential Comment Auto diff final Sodium 145 (136-145) meq/L Potassium 3.9 (3.5-5.1) meq/L Chloride 108 H (98-107) meq/L Carbon Dioxide 29.3 (21.0-32.0) meq/L Anion Gap 8 (5-15) meq/L BUN 28 H (7-18) mg/dL Creatinine 1.62 H (0.60-1.30) mg/dL Estimated GFR 42 L (>89) mL/min POC Glucose (68-110) mg/dl Random Glucose 113 H (74-106) mg/dL Calcium 9.1 (8.5-10.1) mg/dL Total Bilirubin 0.7 (0.2-1.0) mg/dL AST 16 (15-37) U/L ALT 22 (12-78) U/L Alkaline Phosphatase 39 L (45-117) U/L Total Creatine Kinase (39-308) U/L Troponin I Less than 0.02 L (0.02-0.05) ng/mL B-Natriuretic Peptide 1559 H (0-100) pg/mL Total Protein 7.0 (6.4-8.2) g/dL Albumin 3.8 (3.4-5.0) g/dL 09/07/18 09/07/18 09/07/18 Range/Units 11:25 16:28 21:32 WBC (4.0-11.0) th/mm3 RBC (4.50-5.90) mil/mm3 Hgb (13.0-17.0) gm/dL Hct (39.0-51.0) % MCV (80.0-100.0) fL MCH (27.0-34.0) pg MCHC (32.0-36.0) % RDW (11.6-17.2) % Plt Count (150-450) th/mm3 MPV (7.0-11.0) fL Neut % (Auto) (16.0-70.0) % Lymph % (Auto) (9.0-44.0) % [place] % (Auto) (0.0-8.0) % Eos % (Auto) (0.0-4.0) % Baso % (Auto) (0.0-2.0) % Neut # (Auto) (1.8-7.7) th/mm3 Lymph # (Auto) (1.0-4.8) th/mm3 [place] # (Auto) (0.0-0.9) th/mm3 Eos # (Auto) (0.0-0.4) th/mm3 Baso # (Auto) (0.0-0.2) th/mm3 WBC Differential Differential Comment Sodium (136-145) meq/L Potassium (3.5-5.1) meq/L Chloride (98-107) meq/L Carbon Dioxide (21.0-32.0) meq/L Anion Gap (5-15) meq/L BUN (7-18) mg/dL Creatinine (0.60-1.30) mg/dL Estimated GFR (>89) mL/min POC Glucose 133 H 160 H 166 H (68-110) mg/dl Random Glucose (74-106) mg/dL Calcium (8.5-10.1) mg/dL Total Bilirubin (0.2-1.0) mg/dL AST (15-37) U/L ALT (12-78) U/L Alkaline Phosphatase (45-117) U/L Total Creatine Kinase (39-308) U/L Troponin I (0.02-0.05) ng/mL B-Natriuretic Peptide (0-100) pg/mL Total Protein (6.4-8.2) g/dL Albumin (3.4-5.0) g/dL 09/08/18 09/08/18 09/08/18 Range/Units 08:00 08:02 10:54 WBC (4.0-11.0) th/mm3 RBC (4.50-5.90) mil/mm3 Hgb (13.0-17.0) gm/dL Hct (39.0-51.0) % MCV (80.0-100.0) fL MCH (27.0-34.0) pg MCHC (32.0-36.0) % RDW (11.6-17.2) % Plt Count (150-450) th/mm3 MPV (7.0-11.0) fL Neut % (Auto) (16.0-70.0) % Lymph % (Auto) (9.0-44.0) % [place] % (Auto) (0.0-8.0) % Eos % (Auto) (0.0-4.0) % Baso % (Auto) (0.0-2.0) % Neut # (Auto) (1.8-7.7) th/mm3 Lymph # (Auto) (1.0-4.8) th/mm3 [place] # (Auto) (0.0-0.9) th/mm3 Eos # (Auto) (0.0-0.4) th/mm3 Baso # (Auto) (0.0-0.2) th/mm3 WBC Differential Differential Comment Sodium 142 (136-145) meq/L Potassium 3.8 (3.5-5.1) meq/L Chloride 105 (98-107) meq/L Carbon Dioxide 30.8 (21.0-32.0) meq/L Anion Gap 6 (5-15) meq/L BUN 32 H (7-18) mg/dL Creatinine 1.53 H (0.60-1.30) mg/dL Estimated GFR 45 L (>89) mL/min POC Glucose 95 119 H (68-110) mg/dl Random Glucose 99 (74-106) mg/dL Calcium 9.0 (8.5-10.1) mg/dL Total Bilirubin (0.2-1.0) mg/dL AST (15-37) U/L ALT (12-78) U/L Alkaline Phosphatase (45-117) U/L Total Creatine Kinase (39-308) U/L Troponin I (0.02-0.05) ng/mL B-Natriuretic Peptide (0-100) pg/mL Total Protein (6.4-8.2) g/dL Albumin (3.4-5.0) g/dL 09/08/18 09/08/18 09/09/18 Range/Units 17:35 20:42 04:34 WBC (4.0-11.0) th/mm3 RBC (4.50-5.90) mil/mm3 Hgb (13.0-17.0) gm/dL Hct (39.0-51.0) % MCV (80.0-100.0) fL MCH (27.0-34.0) pg MCHC (32.0-36.0) % RDW (11.6-17.2) % Plt Count (150-450) th/mm3 MPV (7.0-11.0) fL Neut % (Auto) (16.0-70.0) % Lymph % (Auto) (9.0-44.0) % [place] % (Auto) (0.0-8.0) % Eos % (Auto) (0.0-4.0) % Baso % (Auto) (0.0-2.0) % Neut # (Auto) (1.8-7.7) th/mm3 Lymph # (Auto) (1.0-4.8) th/mm3 [place] # (Auto) (0.0-0.9) th/mm3 Eos # (Auto) (0.0-0.4) th/mm3 Baso # (Auto) (0.0-0.2) th/mm3 WBC Differential Differential Comment Sodium 142 (136-145) meq/L Potassium 3.6 (3.5-5.1) meq/L Chloride 103 (98-107) meq/L Carbon Dioxide 31.4 (21.0-32.0) meq/L Anion Gap 8 (5-15) meq/L BUN 40 H (7-18) mg/dL Creatinine 1.46 H (0.60-1.30) mg/dL Estimated GFR 47 L (>89) mL/min POC Glucose 131 H 150 H (68-110) mg/dl Random Glucose 91 (74-106) mg/dL Calcium 9.0 (8.5-10.1) mg/dL Total Bilirubin (0.2-1.0) mg/dL AST (15-37) U/L ALT (12-78) U/L Alkaline Phosphatase (45-117) U/L Total Creatine Kinase (39-308) U/L Troponin I (0.02-0.05) ng/mL B-Natriuretic Peptide (0-100) pg/mL Total Protein (6.4-8.2) g/dL Albumin (3.4-5.0) g/dL 09/09/18 09/09/18 09/09/18 Range/Units 08:06 09:58 11:55 WBC (4.0-11.0) th/mm3 RBC (4.50-5.90) mil/mm3 Hgb (13.0-17.0) gm/dL Hct (39.0-51.0) % MCV (80.0-100.0) fL MCH (27.0-34.0) pg MCHC (32.0-36.0) % RDW (11.6-17.2) % Plt Count (150-450) th/mm3 MPV (7.0-11.0) fL Neut % (Auto) (16.0-70.0) % Lymph % (Auto) (9.0-44.0) % [place] % (Auto) (0.0-8.0) % Eos % (Auto) (0.0-4.0) % Baso % (Auto) (0.0-2.0) % Neut # (Auto) (1.8-7.7) th/mm3 Lymph # (Auto) (1.0-4.8) th/mm3 [place] # (Auto) (0.0-0.9) th/mm3 Eos # (Auto) (0.0-0.4) th/mm3 Baso # (Auto) (0.0-0.2) th/mm3 WBC Differential Differential Comment Sodium (136-145) meq/L Potassium (3.5-5.1) meq/L Chloride (98-107) meq/L Carbon Dioxide (21.0-32.0) meq/L Anion Gap (5-15) meq/L BUN (7-18) mg/dL Creatinine (0.60-1.30) mg/dL Estimated GFR (>89) mL/min POC Glucose 100 108 (68-110) mg/dl Random Glucose (74-106) mg/dL Calcium (8.5-10.1) mg/dL Total Bilirubin (0.2-1.0) mg/dL AST (15-37) U/L ALT (12-78) U/L Alkaline Phosphatase (45-117) U/L Total Creatine Kinase 38 L (39-308) U/L Troponin I Less than 0.02 L (0.02-0.05) ng/mL B-Natriuretic Peptide (0-100) pg/mL Total Protein (6.4-8.2) g/dL Albumin (3.4-5.0) g/dL 09/09/18 09/09/18 09/09/18 Range/Units 13:54 16:45 22:09 WBC 6.1 (4.0-11.0) th/mm3 RBC 4.25 L (4.50-5.90) mil/mm3 Hgb 12.9 L (13.0-17.0) gm/dL Hct 39.1 (39.0-51.0) % MCV 92.0 (80.0-100.0) fL MCH 30.4 (27.0-34.0) pg MCHC 33.1 (32.0-36.0) % RDW 16.5 (11.6-17.2) % Plt Count 138 L (150-450) th/mm3 MPV 9.9 (7.0-11.0) fL Neut % (Auto) 61.9 (16.0-70.0) % Lymph % (Auto) 22.0 (9.0-44.0) % [place] % (Auto) 11.7 H (0.0-8.0) % Eos % (Auto) 3.4 (0.0-4.0) % Baso % (Auto) 1.0 (0.0-2.0) % Neut # (Auto) 3.8 (1.8-7.7) th/mm3 Lymph # (Auto) 1.3 (1.0-4.8) th/mm3 [place] # (Auto) 0.7 (0.0-0.9) th/mm3 Eos # (Auto) 0.2 (0.0-0.4) th/mm3 Baso # (Auto) 0.1 (0.0-0.2) th/mm3 WBC Differential . Differential Comment Auto diff final Sodium (136-145) meq/L Potassium (3.5-5.1) meq/L Chloride (98-107) meq/L Carbon Dioxide (21.0-32.0) meq/L Anion Gap (5-15) meq/L BUN (7-18) mg/dL Creatinine (0.60-1.30) mg/dL Estimated GFR (>89) mL/min POC Glucose 94 108 (68-110) mg/dl Random Glucose (74-106) mg/dL Calcium (8.5-10.1) mg/dL Total Bilirubin (0.2-1.0) mg/dL AST (15-37) U/L ALT (12-78) U/L Alkaline Phosphatase (45-117) U/L Total Creatine Kinase (39-308) U/L Troponin I (0.02-0.05) ng/mL B-Natriuretic Peptide (0-100) pg/mL Total Protein (6.4-8.2) g/dL Albumin (3.4-5.0) g/dL 09/10/18 Range/Units 07:48 WBC (4.0-11.0) th/mm3 RBC (4.50-5.90) mil/mm3 Hgb (13.0-17.0) gm/dL Hct (39.0-51.0) % MCV (80.0-100.0) fL MCH (27.0-34.0) pg MCHC (32.0-36.0) % RDW (11.6-17.2) % Plt Count (150-450) th/mm3 MPV (7.0-11.0) fL Neut % (Auto) (16.0-70.0) % Lymph % (Auto) (9.0-44.0) % [place] % (Auto) (0.0-8.0) % Eos % (Auto) (0.0-4.0) % Baso % (Auto) (0.0-2.0) % Neut # (Auto) (1.8-7.7) th/mm3 Lymph # (Auto) (1.0-4.8) th/mm3 [place] # (Auto) (0.0-0.9) th/mm3 Eos # (Auto) (0.0-0.4) th/mm3 Baso # (Auto) (0.0-0.2) th/mm3 WBC Differential Differential Comment Sodium (136-145) meq/L Potassium (3.5-5.1) meq/L Chloride (98-107) meq/L Carbon Dioxide (21.0-32.0) meq/L Anion Gap (5-15) meq/L BUN (7-18) mg/dL Creatinine (0.60-1.30) mg/dL Estimated GFR (>89) mL/min POC Glucose 109 (68-110) mg/dl Random Glucose (74-106) mg/dL Calcium (8.5-10.1) mg/dL Total Bilirubin (0.2-1.0) mg/dL AST (15-37) U/L ALT (12-78) U/L Alkaline Phosphatase (45-117) U/L Total Creatine Kinase (39-308) U/L Troponin I (0.02-0.05) ng/mL B-Natriuretic Peptide (0-100) pg/mL Total Protein (6.4-8.2) g/dL Albumin (3.4-5.0) g/dL Imaging Data Radiologist's impression: Chest X-Ray 09/07/18 06:22 CONCLUSION: Vascular congestion and basilar parenchymal opacities with appearance similar to prior exam Chest CTA 09/07/18 07:18 CONCLUSION: 1. No central pulmonary embolus. 2. Bibasilar consolidation greater right lower lobe likely infiltrate. 3. Tiny bilateral pleural effusions. 4. 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 5. Coronary artery calcifications. ECG Data Attestation: I personally reviewed and interpreted this ECG as follows: Interpretation: Twelve-lead EKG is reviewed by me. Normal sinus rhythm, left axis deviation, multiple PACs and PVC, first-degree AV block. Heart rate of 70 bpm. Discharge Plan Discharge Disposition Patient Disposition: 30 Still Patient Discharge Condition Condition: Stable Discharge Order Discharge Orders: Discharge Order (Routine); Ordered 09/10/18 Ordered By: [place] Discharge Details Anticipated Discharge Date: 09/10/18 Diagnosis: CHF exacerbation Physicians Team ED Provider: Elaina Valadez Primary Care Provider: Primary Care Marisela Claros Attending Provider: Cristi Guillen Other Providers: Colton Worthington Status ED Status: Left Department Discharge Information Discharge Date/Time: 09/07/18 11:20
[2018-09-07] MEDS: Aspirin 325 MG Tablet PO ONE ×2 (07:31→07:58)
--- NOTE | 2018-09-07 08:11 | CT ---
EXAM DATE: 09/07/2018 8:01 AM EST AGE/SEX: 72 years / Male INDICATIONS: Shortness of breath, midsternal chest pain. CLINICAL DATA: This is the patient's initial encounter. Patient reports that signs and symptoms have been present for 1 day and indicates a pain score of 6/10. MEDICAL/SURGICAL HISTORY: Congestive heart failure. Hypertension. Myocardial infarction. Asthma, diabetes. . Cardiac cath. RADIATION DOSE: 23.38 CTDI (mGy) COMPARISON: [facility] – [place], CT CHEST W/O CONTRAST, 07/24/2018. . TECHNIQUE: Volumetric scanning was performed using a multi-row detector CT scanner during bolus infu shyam of 75 ml Visipaque 320 (iodixanol) nonionic water-soluble contrast as a single exam dose. The d kwadwo was post processed with a variety of visualization algorithms including full volume maximum inten sity projection and sliding thin slab reformation. Using automated exposure control and adjustment of the mA and/or kV according to patient size, radiation dose was kept as low as reasonably achievable to obtain optimal diagnostic quality images. DICOM format image data is available electronically for review and comparison. FINDINGS: Pulmonary Arteries: No filling defects are seen in the central pulmonary arteries. Distal pulmonary artery is not well opacified with contrast. The left and right pulmonary arteries are normal in diame ter. Lung: No infiltrates seen. Effusion: Tiny bilateral pleural effusions.. Mediastinum: No evidence of mediastinal or hilar adenopathy. Coronary artery calcifications. Heart e nlarged. There is aneurysmal dilatation of the proximal aortic arch measuring up to 4.7 cm. Other: The axilla is unremarkable. Old rib fractures. CONCLUSION: 1. No central pulmonary embolus. 2. Bibasilar consolidation greater right lower lobe likely infiltrate. 3. Tiny bilateral pleural effusions. 4. 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 5. Coronary artery calcifications. Electronically signed by: Omega Guerrero MD 09/07/2018 8:10 AM EST
[2018-09-07] MEDS ORDERED: Piperacil/Tazo 2.25 GM Premix 50 ML IV.SIG ONE (08:57)
[2018-09-07] MEDS ORDERED: Vancomycin Inj 1 GM/200 ML PIGGYBACK IV.SIG SCH (09:00)
[2018-09-07] MEDS ORDERED: Methocarbamol 500 MG Tablet PO PRN (09:36)
[2018-09-07] MEDS ORDERED: Vancomycin Inj 1,000 MG in Sodium Chlor 0.9% Inj 250 ML IV.SIG ONE (10:00)
--- NOTE | 2018-09-07 11:52 | P.HPIM ---
History of Present Illness Service: [facility] hospitalist Primary Care Physician: No Primary Care Physician Chief Complaint: Shortness of breath History of Present Illness: 72-year-old male with a medical history significant for acute on chronic diastolic CHF, COPD, DM, Hypertension and hyperlipidemia with recurrent CHF exacerbation secondary to noncompliance presented to the hospital earlier this morning due to worsening shortness of breath. Patient reports his symptoms started a couple of days ago. He states he was put on torsemide but he discontinued this medication a few days ago because he did not think it was working. He went back to taking Lasix which he states worked better for his lower extremity swelling. However shortness of breath persisted yesterday afternoon and throughout the night. He initially reported some chest discomfort. However he now reports that completely resolved. He states he has not been sleeping and requesting a medication to help him sleep tonight. He denies any associated nausea or vomiting. Patient reports he has an occasional cough, unchanged. Not bringing up much sputum. He uses a CPAP at night for sleep apnea. He reports his weight has been unchanged. He is at bedside reports he does not put additional salt in his food. However they still it out and he does not really watch his fluid intake. He denies any fevers or chills. Inpatient Certification: I certify that the inpatient services were ordered in accordance with Medicare regulations governing the order. This includes certification that hospital inpatient services are reasonable and necessary and in the case of services not specified as inpatient-only under 42 CFR 419.22(n), that they are appropriately provided as inpatient services in accordance to with the 2-midnight benchmark under 43 CFR 412.3(e) Estimated Total Length of Stay (Days): 3 Plans for Post Hospital Care: Not yet determined Review of Systems All other systems reviewed negative except as stated in HPI Constitutional: Denies chills, Denies fever(s) Cardiovascular: Denies chest pain PMFSH - History History Provided By: Patient - Medical History Medical History: Medical History (Last Reviewed 09/07/18 @ 11:35 by Cindy Stanley MD) Asthma CHF (congestive heart failure) Diabetes HTN (hypertension) High cholesterol Myocardial infarction - Surgical History Surgical History: Surgical History (Last Reviewed 09/07/18 @ 11:35 by Cindy Stanley MD) H/O melanoma excision History of knee surgery Hx of appendectomy Status post cardiac catheterization - Family History Family History: Family History (Last Reviewed 09/07/18 @ 11:35 by Cindy Stanley MD) Father FH: CABG (coronary artery bypass surgery) Mother Heart disease - Social History I have reviewed the patient's Social History: Yes - Tobacco History Second Hand Smoke Exposure: No Tobacco Use In Past 30 Days: No Smoking Status: Former smoker Tobacco Type: Cigarettes - Alcohol History How Often Do You Have a Drink Containing Alcohol: 2 to 4 times a month - Substance Use History Substance History: No History of Abuse - Travel History Recent Travel in the [place] Within the Last 8 Weeks: No Recent Travel Out of the Country Within the Last 8 Weeks: No - Immunization History Tetanus Immunization: Unsure Medications and Allergies Active Medications: Active Medications Aspirin (Aspirin Chew) 81 mg PO DAILY [facility] Atorvastatin Calcium (Lipitor) 80 mg PO DAILY [facility] Budesonide (Pulmicort Respule Neb) 0.25 mg NEB BID NEB [facility] Bumetanide (Bumex Inj) 1 mg IV.PUSH BID@0900,1800 [facility] Carvedilol (Coreg) 12.5 mg PO BID [facility] Fenofibrate (Tricor) 145 mg PO DAILY [facility] Heparin Sodium (Porcine) (Heparin Inj) 5,000 units SQ Q12H [facility] Latanoprost (Xalatan 0.005% Opth Drops) 1 drop EACH EYE QPM [facility] Methocarbamol (Robaxin) 500 mg PO QID PRN PRN Reason: MUSCLE PAIN Metolazone (Zaroxolyn) 2.5 mg PO DAILY [facility] Nitroglycerin (Nitrostat Sl) 0.4 mg SL Q5M PRN PRN Reason: CHEST PAIN Pt Own Med(Glipizide (2.5 Er )) 0 each PO DAILY [facility] Sodium Chloride (Ns Flush) 2 ml IV.FLUSH UNSCH PRN PRN Reason: FLUSH AFTER USING IV ACCESS Last Admin: 09/07/18 06:46 Dose: 2 ml Sodium Chloride (Ns Flush) 2 ml IV.FLUSH BID [facility] Sodium Chloride (Ns Flush) 2 ml IV.FLUSH UNSCH PRN PRN Reason: FLUSH AFTER USING IV ACCESS Umeclidinium/Vilanterol (Anoro-Ellipta 62.5/25 Mcg Inh) 1 puff INH Q24H [facility] Allergies Allergy/AdvReac Type Severity Reaction Status Date / Time Sulfa (Sulfonamide Allergy Mild Nausea/Vomi Verified 09/07/18 05:59 Antibiotics) ting Home Medications Medication Instructions Recorded Confirmed Type albuterol sulfate 2.5 mg INHALATION Q4-6H PRN 07/24/18 09/07/18 History aspirin 81 mg PO DAILY 07/24/18 09/07/18 History carvedilol [Coreg] 12.5 mg PO BID 07/24/18 09/07/18 History fenofibrate 160 mg PO DAILY 07/24/18 09/07/18 History glipizide 2.5 mg PO DAILY 07/24/18 09/07/18 History latanoprost 1 drp OPHTHALMIC (EYE) QPM 07/24/18 09/07/18 History methocarbamol 500 mg PO QID PRN 07/24/18 09/07/18 History umeclidinium-vilanterol [Anoro 1 inh INHALATION Q24H 07/24/18 09/07/18 History Ellipta] atorvastatin 80 mg PO DAILY 08/25/18 09/07/18 History furosemide 60 mg PO BID 08/25/18 09/07/18 History Exam Vital signs: Vital Signs 09/07/18 05:59 09/07/18 06:38 09/07/18 06:39 Temperature 97.2 F L Pulse Rate 86 70 Respiratory Rate 22 23 Blood Pressure 144/71 H Pulse Oximetry 93 L 96 09/07/18 09:27 Temperature Pulse Rate 69 Respiratory Rate 22 Blood Pressure 115/56 L Pulse Oximetry 93 L Intake & Output 09/06/18 09/07/18 09/07/18 18:59 06:59 18:59 Intake Total 50 / 50 Balance 50 / 50 Weight 120.656 kg Intake: IV 50 / 50 Zosyn 2.25 GM Premix 50 ML @ 50 / 50 100 mls/hr IV.SIG ONCE ONE Rx#: [id number] Narrative: CONSTITUTIONAL/GENERAL: Morbidly obese elderly male in no acute distress. Vital signs reviewed SKIN: No jaundice, rashes, or concerning lesions. Not diaphoretic. HEAD: Atraumatic. Normocephalic. EYES: Pupils equal and round and reactive. Extra ocular motions are intact. No scleral icterus. No injection or drainage. ENT: Hearing grossly normal. Nose without drainage. Throat without visible erythema, exudates, masses, or lesions. NECK: Trachea midline. Neck is supple, non-tender. No palpable thyroid enlargement or nodularity. CARDIOVASCULAR: Normal rate and regular rhythm without significant murmurs, gallops, or rubs. No JVD. Peripheral pulses 2+ and symmetric. RESPIRATORY/CHEST: Symmetric, unlabored respirations. Bilateral basilar crackles. No wheezing or rhonchi. GASTROINTESTINAL: Abdomen soft, large abdominal wall defect and hernia present. Liver and spleen not palpable. MUSCULOSKELETAL: 1+ bilateral lower extremity edema. No joint tenderness or effusion noted. No calf tenderness. No mottling or clubbing. NEUROLOGICAL: Awake and alert. Motor and sensory grossly within normal limits. Follows commands. Move all extremities spontaneously. No focal deficits. PSYCHIATRIC: No obvious mood problems. No apparent hallucinations or other psychotic thought process. Results - Labs CBC & Chem 7: 09/07/18 06:30 09/07/18 06:30 Labs: Short CBC 09/07/18 Range/Units 06:30 WBC 4.9 (4.0-11.0) th/mm3 Hgb 14.0 (13.0-17.0) gm/dL Hct 43.4 (39.0-51.0) % Plt Count 136 L (150-450) th/mm3 BMP 09/07/18 06:30 Sodium 145 Potassium 3.9 Chloride 108 H Carbon Dioxide 29.3 BUN 28 H Creatinine 1.62 H Calcium 9.1 Cardiac Enzymes 09/07/18 Range/Units 06:30 Troponin I Less than 0.02 L (0.02-0.05) ng/mL Liver Function 09/07/18 Range/Units 06:30 Total Bilirubin 0.7 (0.2-1.0) mg/dL AST 16 (15-37) U/L ALT 22 (12-78) U/L Alkaline Phosphatase 39 L (45-117) U/L Albumin 3.8 (3.4-5.0) g/dL - Imaging Impressions Chest X-Ray 09/07/18 06:22 CONCLUSION: Vascular congestion and basilar parenchymal opacities with appearance similar to prior exam Chest CTA 09/07/18 07:18 CONCLUSION: 1. No central pulmonary embolus. 2. Bibasilar consolidation greater right lower lobe likely infiltrate. 3. Tiny bilateral pleural effusions. 4. 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 5. Coronary artery calcifications. Caprini VTE Risk Assessment Caprini VTE Risk Assessment: Moderate/High Risk (score >= 2) Caprini Risk Assessment Model: Point Value = 1 Point Value = 2 Point Value = 3 Point Value = 5 Age 41-60 Minor surgery BMI > 25 kg/m2 Swollen legs Varicose veins or History of unexplained or recurrent spontaneous Oral contraceptives or hormone replacement Sepsis (< 1 month) Serious lung disease, including pneumonia (< 1 month) Abnormal pulmonary function Acute myocardial infarction Congestive heart failure (< 1 month) History of inflammatory bowel disease Medical patient at bed rest Age 61-74 Arthroscopic surgery Major open surgery (> 45 min) Laparoscopic surgery (> 45 min) Malignancy Confined to bed (> 72 hours) Immobilizing plaster cast Central venous access Age >= 75 History of VTE Family history of VTE Factor V Leiden Prothrombin [id number] Lupus anticoagulant Anticardiolipin antibodies Elevated serum homocysteine Heparin-induced thrombocytopenia Other congenital or acquired thrombophilia Stroke (< 1 month) Elective arthroplasty Hip, pelvis, or leg fracture Acute spinal cord injury (< 1 month) Prophylaxis Regimen: Total Risk Factor Score Risk Level Prophylaxis Regimen 0-1 Low Early ambulation 2 Moderate Order ONE of the following: *Sequential Compression Device (SCD) *Heparin 5000 units SQ BID 3-4 Higher Order ONE of the following medications: *Heparin 5000 units SQ TID *Enoxaparin/Lovenox 40 mg SQ daily (WT < 150 kg, CrCl > 30 mL/min) *Enoxaparin/Lovenox 30 mg SQ daily (WT < 150 kg, CrCl > 10-29 mL/min) *Enoxaparin/Lovenox 30 mg SQ BID (WT < 150 kg, CrCl > 30 mL/min) AND/OR *Sequential Compression Device (SCD) 5 or more Highest Order ONE of the following medications: *Heparin 5000 units SQ TID (Preferred with Epidurals) *Enoxaparin/Lovenox 40 mg SQ daily (WT < 150 kg, CrCl > 30 mL/min) *Enoxaparin/Lovenox 30 mg SQ daily (WT < 150 kg, CrCl > 10-29 mL/min) *Enoxaparin/Lovenox 30 mg SQ BID (WT < 150 kg, CrCl > 30 mL/min) AND *Sequential Compression Device (SCD) Assessment and Plan - Plan 72-year-old male admitted with: Acute on chronic respiratory failure secondary to diastolic CHF exacerbation. Doubt pneumonia as he has no other clinical signs of pneumonia such as fever, persistent cough, or leukocytosis. However low threshold to give him antibiotics, will continue to monitor closely for now. -Noncompliance with diet and fluid restriction. Patient also has been switching his diuretics on his own. Per the last assistant women's soccer coach note He is supposed to be on Bumex. - Patient received a dose of IV Lasix in the ED. We will switch him to IV Bumex 1 mg twice a day and add Zaroxolyn for the next 2 days. Monitor I/O. - Continue with supplemental oxygen -Continue Coreg. - Consult cardiology for assistance. Recurrent admissions for CHF exacerbation. -Discussed with the patient he needs frequent follow-up with PCP and cardiology -We discussed sodium and fluid restriction at length again. The patient also needs to lose weight. This was discussed with him at length with his at the bedside. Patient will benefit from home health to help ensure medication compliance. Chronic kidney disease: - Monitor closely. Careful with diuretics. Avoid nephrotoxins. Diabetes mellitus -Continue home dose glipizide. - Diabetic diet Hypertension/hyperlipidemia Continue home medications DVT ppx with Heparin
[2018-09-07] MEDS: Heparin - SQ 10,000 UNITS/ML Vial SQ SCH ×2 (12:56→23:01)
[2018-09-07] MEDS ORDERED: Dextrose 50% in Water 50 ML Vial IV.PUSH PRN (17:03)
[2018-09-07] MEDS: Umeclindinium 62.5 MCG/Vilanterol 25 MCG Inhaler INH SCH (17:29)
[2018-09-07] MEDS: Latanoprost 0.005% Opth Drops 2.5 ML Bottle EACH EYE SCH (17:36)
--- NOTE | 2018-09-07 21:03 | ECG ---
Date Performed: 09/07/2018 Time Performed: 06:41:54 PTAGE: 72 years EKG: Sinus rhythm WITH FIRST DEGREE AV BLOCK WITH OCCASIONAL VENTRICULAR PREMATURE COMPLEXES WITH OCCASIONAL SUPRAVENT RICULAR PREMATURE COMPLEXES LEFT ANTERIOR FASCICULAR BLOCK NONSPECIFIC T-WAVE ABNORMALITY ABNORMAL EC G PREVIOUS TRACING : 09/07/2018 06.39 Since the previous tracing, no significant change noted DOCTOR: Deshawn Presley Interpretating Date/Time 09/07/2018 21:03:15
--- NOTE | 2018-09-07 21:06 | ECG ---
Date Performed: 09/07/2018 Time Performed: 06:10:50 PTAGE: 72 years EKG: Sinus rhythm WITH FIRST DEGREE AV BLOCK WITH FREQUENT SUPRAVENTRICULAR PREMATURE COMPLEXES LEFT ANTERIOR FASCICUL AR BLOCK ABNORMAL ECG Since the PREVIOUS TRACING , no significant change noted DOCTOR: Deshawn Presley Interpretating Date/Time 09/07/2018 21:04:29
[2018-09-07] MEDS: Insulin NovoLIN Regular Correctional Sugar Inj SQ SCH (22:51)
[2018-09-07] MEDS: Carvedilol 12.5 MG Tablet PO SCH (22:51)
[2018-09-07] MEDS: Zolpidem Tartrate 5 MG Tablet PO PRN (22:51)
--- NOTE | 2018-09-08 01:28 | MB ---
cc: Colton Worthington DO DATE: 09/07/2018 REASON FOR CONSULTATION: Shortness of breath. HISTORY OF PRESENT ILLNESS: Gonzales Hwang is a pleasant 72-year-old male who sees my partner, Dr. Noyola, in the office and presents once again due to shortness of breath. He has been in the hospital multiple times due to shortness of breath. Overall, he has had noncompliance with decreasing his overall sodium intake as well as watching his fluid levels. He was discharged home previously on Bumex, but only took Lasix. After his last admission, once again, we spoke about attempting Bumex, which he did, but felt like his left ankle with swelling and so he started taking his Lasix, as he felt like this might help him. On arrival, a CT scan was done, which showed possible consolidation. He did have some minor chest pain during the episodes, which was sharp and stabbing on the left side. PAST MEDICAL HISTORY: 1. Asthma. 2. Chronic diastolic heart failure. 3. Mild coronary artery disease by cardiac catheterization (04/2018 in [place]). 4. Diabetes mellitus. 5. Hyperlipidemia. 6. Myocardial infarction (04/2018, felt to be type 2 in nature). PAST SURGICAL HISTORY: 1. Cardiac catheterization (04/2018 in [place]) with mild coronary artery disease. 2. Melanoma excision. 3. Knee surgery. 4. Appendectomy. ALLERGIES: SULFA. MEDICATIONS: 1. Methocarbamol 500 mg q.i.d. as needed. 2. Fenofibrate 160 mg daily. 3. Glipizide 2.5 mg daily. 4. Coreg 12.5 mg b.i.d. 5. Aspirin 81 mg daily. 6. Anoro Ellipta 1 inhalation daily. 7. Albuterol nebulizer as needed. 8. Lasix 60 mg b.i.d. 9. Lipitor 80 mg daily. FAMILY HISTORY: Denies premature coronary artery disease or sudden cardiac within the family. SOCIAL HISTORY: The patient is a previous smoker, quitting in 1983. Denies alcohol or drug abuse. REVIEW OF SYSTEMS: Fourteen systems were reviewed including osteopathic. Pertinent positives and negatives above, otherwise negative. PHYSICAL EXAMINATION: VITAL SIGNS: Temperature 97.3, heart rate 69, blood pressure 115/56, respirations 20, pulse oximetry 97% on 4 liters. GENERAL: The patient appears well, in no acute distress, alert, awake and oriented x3. HEENT: Extraocular muscles intact. Mucous membranes moist. NECK: Supple. No JVD at 45 degrees. No carotid bruits heard bilaterally. Carotid stroke was brisk in nature. HEART: Regular rate and rhythm. Positive first and second heart sounds with no noted murmurs, gallops or rubs. LUNGS: Clear to auscultation bilaterally. No wheezes, rales or rhonchi. ABDOMEN: Soft, nontender, nondistended. No organomegaly noted. EXTREMITIES: Show no clubbing or cyanosis, 1+ pitting edema bilaterally. Femoral and distal pulses intact bilaterally. NEUROLOGIC: No focal deficits. SKIN: Warm, dry and intact. OSTEOPATHIC: No kyphoscoliosis. Mild lordosis. No paraspinal tender points. LABORATORY DATA: Hemoglobin 14.0, hematocrit 43.4, platelets 136. Potassium 3.9, BUN 28, creatinine at 1.62. Troponin less than 0.02. Electrocardiogram (09/07/2018 at 0641 hours): Sinus rhythm with first-degree AV block and occasional PVC. Left anterior fascicular block. Nonspecific ST-T wave changes. IMPRESSIONS: 1. Acute on chronic diastolic heart failure with a previous left ventricular end-diastolic pressure of 41 (by cardiac catheterization in 04/2018). 2. Noncompliance with medications, sodium intake and fluid restriction. 3. Asthma. 4. Previous pneumonia. 5. Acute kidney injury. 6. Noncardiac chest pain. RECOMMENDATIONS: 1. Mr. Hwang presented once again with acute on chronic diastolic heart failure. 2. We will attempt to diurese him as possible. 3. I imposed on him once again the necessity of dietary, sodium decrease, as well as watching his overall fluid levels. 4. We will continue to diurese him as possible. 5. Ultimately, I still believe he would do better on Bumex, but it does not sound like he gave this an attempt. 6. I have asked that he watch his sodium and fluid levels at home as well as his weights to determine his overall fluid status. Thank you for allowing me to see Gonzales Hwang. If there are any questions, please do not hesitate to call. Colton Worthington DO VGP/rw , 12:19 AM , 12:30 AM
[2018-09-08] MEDS: Insulin NovoLIN Regular Correctional Sugar Inj SQ SCH ×4 (08:07→20:43)
[2018-09-08] MEDS: GLIPIZIDE PO SCH (08:08)
[2018-09-08] MEDS: Carvedilol 12.5 MG Tablet PO SCH ×2 (08:09→22:51)
[2018-09-08] MEDS: Fenofibrate 145 MG Tablet PO SCH (08:09)
[2018-09-08 08:43] LABS: Carbon Dioxide 30.8 meq/L (21.0-32.0); Potassium 3.8 meq/L (3.5-5.1)
[2018-09-08] MEDS: Heparin - SQ 10,000 UNITS/ML Vial SQ SCH ×2 (10:55→22:51)
--- NOTE | 2018-09-08 11:20 | P.PN ---
Subjective Interval history: Follow-up on patient with CHF exacerbation. Patient states he slept very well last night. He would like a prescription of the sleeping pill he was given last night at discharge. He states he has been urinating a lot. He reports mild cough with scant sputum production. He reports some anterior chest pain with deep inspiration. He states his breathing is unchanged. He uses oxygen at home. He states he has been compliant with his diet however upon further discussion it does not appear that that is the case. Physical Exam Vital signs: Vital Signs 09/07/18 12:00 09/07/18 16:00 09/07/18 20:00 Temperature 97.3 F L 98.4 F 98.9 F Pulse Rate 83 78 87 Respiratory Rate 20 20 16 Blood Pressure 141/60 H 127/60 130/62 Pulse Oximetry 97 94 L 93 L 09/08/18 00:00 09/08/18 04:00 09/08/18 08:00 Temperature 98.3 F 98.4 F 97.9 F Pulse Rate 71 71 78 Respiratory Rate 16 16 19 Blood Pressure 102/55 L 126/68 141/63 H Pulse Oximetry 96 96 93 L Intake & Output 09/07/18 09/08/18 09/08/18 18:59 06:59 18:59 Intake Total 300 / 300 Output Total 200 / 200 1700 / 1700 Balance 100 / 100 -1700 / -1700 Weight 119.2 kg Intake: IV 300 / 300 Zosyn 2.25 GM Premix 50 ML @ 50 / 50 100 mls/hr IV.SIG ONCE ONE Rx#: [id number] Vancomycin Inj 1,000 MG In NS 250 / 250 Inj 250 ML @ 250 mls/hr IV.SIG ONCE ONE Rx#:[id number] Output: Urine 200 / 200 1700 / 1700 Other: # Voids 2 Date of Last Bowel Movement 09/06/18 09/06/18 Narrative: GENERAL: Overweight WDWN male patient, INAD. Awake and alert. SKIN: Warm and dry. HEAD: Atraumatic. Normocephalic. EYES: Pupils equal and round. No scleral icterus. No injection or drainage. ENT: No nasal bleeding or discharge. Mucous membranes pink and moist. NECK: Trachea midline. CARDIOVASCULAR: Regular rate and rhythm. RESPIRATORY: No accessory muscle use. Clear to auscultation. Breath sounds equal bilaterally. GASTROINTESTINAL: Abdomen soft, non-tender, nondistended. +BS. MUSCULOSKELETAL: Extremities without clubbing, cyanosis. +1+ bilateral lower extremity pitting edema. No obvious deformities. NEUROLOGICAL: Awake and alert. No obvious cranial nerve deficits. Motor grossly within normal limits. Able to move all extremities spontaneously. Normal speech. PSYCHIATRIC: Appropriate mood and affect; insight and judgment normal. Results - Labs CBC & Chem 7: 09/07/18 06:30 09/08/18 08:00 Laboratory Results - last 24 hr 09/07/18 09/07/18 09/07/18 11:25 16:28 21:32 Sodium Potassium Chloride Carbon Dioxide Anion Gap BUN Creatinine Estimated GFR POC Glucose 133 H 160 H 166 H Random Glucose Calcium 09/08/18 09/08/18 09/08/18 08:00 08:02 10:54 Sodium 142 Potassium 3.8 Chloride 105 Carbon Dioxide 30.8 Anion Gap 6 BUN 32 H Creatinine 1.53 H Estimated GFR 45 L POC Glucose 95 119 H Random Glucose 99 Calcium 9.0 Assessment and Plan - Plan 72-year-old male admitted with: Acute on chronic respiratory failure secondary to diastolic CHF exacerbation. Doubt pneumonia as he has no other clinical signs of pneumonia such as fever, persistent cough, or leukocytosis. However low threshold to give him antibiotics, will continue to monitor closely for now. BNP 1559 - Noncompliance with diet and fluid restriction. Patient also has been switching his diuretics on his own. Per the last cutter [employer] note He is supposed to be on Bumex. - Patient received a dose of IV Lasix in the ED. We will switch him to IV Bumex 1 mg twice a day and add Zaroxolyn for the next 2 days. - Monitor I/O. Diuresing well, continue to monitor - Continue with supplemental oxygen. Patient uses oxygen at home during the day and has a CPAP at night. - Continue Coreg - Cardiology following, appreciate assistance. Recurrent admissions for CHF exacerbation. Discussed with Dr. Worthington. - Discussed with the patient he needs frequent follow-up with PCP and cardiology - We discussed sodium and fluid restriction at length again. The patient also needs to lose weight. This was discussed with him at length with his at the bedside. Patient will benefit from home health to help ensure medication compliance. - continue on fluid restriction Chronic kidney disease: creatinine appears to be near baseline - Monitor closely. Careful with diuretics. Avoid nephrotoxins. - repeat BMP in am Diabetes mellitus - Continue home dose glipizide. 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 Guillen, Dr. Worthington Discharge Planning: Likely discharge in the next 24-48 hours. Discharge pending cardiology clearance.
[2018-09-08] MEDS: Umeclindinium 62.5 MCG/Vilanterol 25 MCG Inhaler INH SCH (12:19)
[2018-09-08] MEDS: Latanoprost 0.005% Opth Drops 2.5 ML Bottle EACH EYE SCH (17:41)
[2018-09-08] MEDS: Azithromycin Inj 500 MG in Sodium Chlor 0.9% Inj 250 ML IV.SIG SCH (19:16)
[2018-09-08] MEDS: Zolpidem Tartrate 5 MG Tablet PO PRN (22:51)
[2018-09-08] MEDS: guaiFENesin 600 MG ER Tablet PO SCH (22:51)
--- NOTE | 2018-09-09 01:31 | P.PNCA ---
Subjective Interval history: No complaints Diuresed well Breathing better Medications and Allergies Active Medications: Active Medications Albuterol (Duoneb Neb (Keysha)) 1 ampul NEB Q6HR WHILE AWAKE NEB [facility] Last Admin: 09/08/18 21:05 Dose: 1 ampul Aspirin (Aspirin Chew) 81 mg PO DAILY [facility] Last Admin: 09/08/18 08:09 Dose: 81 mg Atorvastatin Calcium (Lipitor) 80 mg PO DAILY [facility] Last Admin: 09/08/18 08:09 Dose: 80 mg Budesonide (Pulmicort Respule Neb) 0.25 mg NEB BID NEB [facility] Last Admin: 09/08/18 21:05 Dose: 0.25 mg Bumetanide (Bumex Inj) 1 mg IV.PUSH BID@0900,1800 [facility] Last Admin: 09/08/18 18:03 Dose: 1 mg Carvedilol (Coreg) 12.5 mg PO BID [facility] Last Admin: 09/08/18 22:51 Dose: 12.5 mg Dextrose (D50w Vial) 50 ml IV.PUSH UNSCH PRN PRN Reason: PER HYPOGLYCEMIA PROTOCOL Fenofibrate (Tricor) 145 mg PO DAILY [facility] Last Admin: 09/08/18 08:09 Dose: 145 mg Glucagon (Glucagon Inj) 1 mg OTHER PRN PRN PRN Reason: for Hypoglycemia Protocol Guaifenesin (Mucinex Er) 600 mg PO BID [facility] Last Admin: 09/08/18 22:51 Dose: 600 mg Heparin Sodium (Porcine) (Heparin Inj) 5,000 units SQ Q12H [facility] Last Admin: 09/08/18 22:51 Dose: 5,000 units Ceftriaxone Sodium 2,000 mg/ (Sodium Chloride) 100 mls @ 200 mls/hr IV.SIG Q24H [facility] Last Infusion: 09/08/18 19:51 Dose: Infused Azithromycin 500 mg/ Sodium (Chloride) 250 mls @ 250 mls/hr IV.SIG Q24H [facility] Last Infusion: 09/08/18 20:43 Dose: Infused Insulin Human Regular (Novolin R Correctional Sugar Inj) 0 units SQ ACHS [facility]; Protocol Last Admin: 09/08/18 20:43 Dose: Not Given Latanoprost (Xalatan 0.005% Opth Drops) 1 drop EACH EYE QPM [facility] Last Admin: 09/08/18 17:41 Dose: 1 drop Methocarbamol (Robaxin) 500 mg PO QID PRN PRN Reason: MUSCLE PAIN Metolazone (Zaroxolyn) 2.5 mg PO DAILY [facility] Last Admin: 09/08/18 08:09 Dose: 2.5 mg Nitroglycerin (Nitrostat Sl) 0.4 mg SL Q5M PRN PRN Reason: CHEST PAIN Pt Own Med(Glipizide (2.5 Er )) 0 each PO DAILY [facility] Last Admin: 09/08/18 08:08 Dose: Not Given Sodium Chloride (Ns Flush) 2 ml IV.FLUSH BID [facility] Last Admin: 09/08/18 22:52 Dose: 2 ml Sodium Chloride (Ns Flush) 2 ml IV.FLUSH UNSCH PRN PRN Reason: FLUSH AFTER USING IV ACCESS Umeclidinium/Vilanterol (Anoro-Ellipta 62.5/25 Mcg Inh) 1 puff INH Q24H [facility] Last Admin: 09/08/18 12:19 Dose: 1 puff Zolpidem Tartrate (Ambien) 5 mg PO HS PRN PRN Reason: INSOMNIA Last Admin: 09/08/18 22:51 Dose: 5 mg Allergies Allergy/AdvReac Type Severity Reaction Status Date / Time Sulfa (Sulfonamide Allergy Mild Nausea/Vomi Verified 09/07/18 05:59 Antibiotics) ting Home Medications Medication Instructions Recorded Confirmed Type albuterol sulfate 2.5 mg INHALATION Q4-6H PRN 07/24/18 09/07/18 History aspirin 81 mg PO DAILY 07/24/18 09/07/18 History carvedilol [Coreg] 12.5 mg PO BID 07/24/18 09/07/18 History fenofibrate 160 mg PO DAILY 07/24/18 09/07/18 History glipizide 2.5 mg PO DAILY 07/24/18 09/07/18 History latanoprost 1 drp OPHTHALMIC (EYE) QPM 07/24/18 09/07/18 History methocarbamol 500 mg PO QID PRN 07/24/18 09/07/18 History umeclidinium-vilanterol [Anoro 1 inh INHALATION Q24H 07/24/18 09/07/18 History Ellipta] atorvastatin 80 mg PO DAILY 08/25/18 09/07/18 History furosemide 60 mg PO BID 08/25/18 09/07/18 History Physical Exam Vital signs: Vital Signs 09/08/18 04:00 09/08/18 08:00 09/08/18 11:36 Temperature 98.4 F 97.9 F Pulse Rate 71 78 64 Respiratory Rate 16 19 Blood Pressure 126/68 141/63 H Pulse Oximetry 96 93 L 94 L 09/08/18 12:40 09/08/18 15:35 09/08/18 20:00 Temperature 97.7 F 98.9 F 97.8 F Pulse Rate 70 67 74 Respiratory Rate 20 20 22 Blood Pressure 110/59 L 116/75 113/56 L Pulse Oximetry 90 L 87 L 95 09/08/18 21:09 09/09/18 00:00 Temperature 97.4 F L Pulse Rate 73 71 Respiratory Rate 17 20 Blood Pressure 95/53 L Pulse Oximetry 91 L 96 Intake & Output 09/08/18 09/08/18 09/09/18 06:59 18:59 06:59 Intake Total 350 / 350 Output Total 1700 / 1700 800 / 800 Balance -1700 / -1700 -800 / -800 350 / 350 Weight 119.2 kg Intake: IV 350 / 350 Azithromycin Inj 500 MG In NS 250 / 250 Inj 250 ML @ 250 mls/hr IV.SIG Q24H [facility] Rx#:[id number] Rocephin Inj 2,000 MG In NS Inj 100 / 100 100 ML @ 200 mls/hr IV.SIG Q24H [facility] Rx#:[id number] Output: Urine 1700 / 1700 800 / 800 Other: # Voids 2 Date of Last Bowel Movement 09/06/18 Narrative: GENERAL: Overweight WDWN male patient, INAD. Awake and alert. SKIN: Warm and dry. HEAD: Atraumatic. Normocephalic. EYES: Pupils equal and round. No scleral icterus. No injection or drainage. ENT: No nasal bleeding or discharge. Mucous membranes pink and moist. NECK: Trachea midline. CARDIOVASCULAR: Regular rate and rhythm. RESPIRATORY: No accessory muscle use. Clear to auscultation. Breath sounds equal bilaterally. GASTROINTESTINAL: Abdomen soft, non-tender, nondistended. +BS. MUSCULOSKELETAL: Extremities without clubbing, cyanosis. +1+ bilateral lower extremity pitting edema. No obvious deformities. NEUROLOGICAL: Awake and alert. No obvious cranial nerve deficits. Motor grossly within normal limits. Able to move all extremities spontaneously. Normal speech. PSYCHIATRIC: Appropriate mood and affect; insight and judgment normal. Results 09/07/18 06:30 09/08/18 08:00 Cardiac Enzymes 09/07/18 09/07/18 Range/Units 06:30 06:30 AST 16 (15-37) U/L Troponin I Less than 0.02 L (0.02-0.05) ng/mL B-Natriuretic Peptide 1559 H (0-100) pg/mL Coagulation 09/07/18 Range/Units 06:30 B-Natriuretic Peptide 1559 H (0-100) pg/mL CBC 09/07/18 Range/Units 06:30 WBC 4.9 (4.0-11.0) th/mm3 RBC 4.63 (4.50-5.90) mil/mm3 Hgb 14.0 (13.0-17.0) gm/dL Hct 43.4 (39.0-51.0) % Plt Count 136 L (150-450) th/mm3 Neut # (Auto) 2.8 (1.8-7.7) th/mm3 Lymph # (Auto) 1.4 (1.0-4.8) th/mm3 [place] # (Auto) 0.5 (0.0-0.9) th/mm3 Eos # (Auto) 0.2 (0.0-0.4) th/mm3 Baso # (Auto) 0.1 (0.0-0.2) th/mm3 Comprehensive Metabolic Panel 09/07/18 09/08/18 Range/Units 06:30 08:00 Sodium 145 142 (136-145) meq/L Potassium 3.9 3.8 (3.5-5.1) meq/L Chloride 108 H 105 (98-107) meq/L Carbon Dioxide 29.3 30.8 (21.0-32.0) meq/L BUN 28 H 32 H (7-18) mg/dL Creatinine 1.62 H 1.53 H (0.60-1.30) mg/dL Calcium 9.1 9.0 (8.5-10.1) mg/dL AST 16 (15-37) U/L ALT 22 (12-78) U/L Alkaline Phosphatase 39 L (45-117) U/L Total Protein 7.0 (6.4-8.2) g/dL Albumin 3.8 (3.4-5.0) g/dL Intake and Output 09/08/18 09/08/18 09/09/18 14:59 22:59 06:59 Intake Total 350 / 350 Output Total 800 / 800 Balance -450 / -450 Intake: IV 350 / 350 Azithromycin Inj 500 MG In NS 250 / 250 Inj 250 ML @ 250 mls/hr IV.SIG Q24H [facility] Rx#:[id number] Rocephin Inj 2,000 MG In NS Inj 100 / 100 100 ML @ 200 mls/hr IV.SIG Q24H [facility] Rx#:[id number] Output: Urine 800 / 800 Other: # Voids 2 Date of Last Bowel Movement 09/06/18 09/06/18 - Imaging and Cardiology Imaging: Impressions Chest X-Ray 09/07/18 06:22 CONCLUSION: Vascular congestion and basilar parenchymal opacities with appearance similar to prior exam Chest CTA 09/07/18 07:18 CONCLUSION: 1. No central pulmonary embolus. 2. Bibasilar consolidation greater right lower lobe likely infiltrate. 3. Tiny bilateral pleural effusions. 4. 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 5. Coronary artery calcifications. Assessment and Plan - Assessment (1) Chest pain Code(s): R07.9 - Chest pain, unspecified Status: Acute (2) SOB (shortness of breath) Code(s): R06.02 - Shortness of breath Status: Acute (3) Chronic diastolic heart failure Code(s): I50.32 - Chronic diastolic (congestive) heart failure Status: Acute (4) Mild coronary artery disease Code(s): I25.10 - Atherosclerotic heart disease of [place] coronary artery without angina pectoris Status: Acute (5) Acute on chronic diastolic (congestive) heart failure Code(s): I50.33 - Acute on chronic diastolic (congestive) heart failure Status : Acute (6) Pneumonia Code(s): J18.9 - Pneumonia, unspecified organism Status: Acute - Plan 1) Acute on chronic diastolic heart failure Diureses as possible Bumex/Zaroxolyn Discussed again the importance of dietary sodium and fluid restriction Ultimately he gets it, but just doesn't seem to follow it at home Doesn't think he eats much salt, but they eat out at restaurants with high salt meals 2) Mild CAD by previous cath 3) Possible PNA
[2018-09-09 06:02] LABS: Carbon Dioxide 31.4 meq/L (21.0-32.0); Potassium 3.6 meq/L (3.5-5.1)
--- NOTE | 2018-09-09 07:10 | P.PN ---
Subjective Interval history: Follow-up on patient with CHF exacerbation. Patient states he does not feel well today. He complains of dull constant right sided chest pain. He denies any palpitations or diaphoresis. He reports nausea but no vomiting. He continues to cough with greenish sputum production. He says he is coughing up more phlegm. He says his breathing is the same. Patient without his oxygen on for about 15-20mins after walking around the unit. His pulse ox measured at 95 % on RA. BP low this am but patient denies any increased SOB, dizziness or lightheadedness. Physical Exam Vital signs: Vital Signs 09/08/18 08:00 09/08/18 11:36 09/08/18 12:40 Temperature 97.9 F 97.7 F Pulse Rate 78 64 70 Respiratory Rate 19 20 Blood Pressure 141/63 H 110/59 L Pulse Oximetry 93 L 94 L 90 L 09/08/18 15:35 09/08/18 20:00 09/08/18 21:09 Temperature 98.9 F 97.8 F Pulse Rate 67 74 73 Respiratory Rate 20 22 17 Blood Pressure 116/75 113/56 L Pulse Oximetry 87 L 95 91 L 09/09/18 00:00 09/09/18 04:00 Temperature 97.4 F L 97.5 F L Pulse Rate 71 65 Respiratory Rate 20 17 Blood Pressure 95/53 L 111/57 L Pulse Oximetry 96 93 L Intake & Output 09/08/18 09/09/18 09/09/18 18:59 06:59 18:59 Intake Total 350 / 350 Output Total 800 / 800 850 / 850 Balance -800 / -800 -500 / -500 Weight 119.5 kg Intake: IV 350 / 350 Azithromycin Inj 500 MG In NS 250 / 250 Inj 250 ML @ 250 mls/hr IV.SIG Q24H [facility] Rx#:[id number] Rocephin Inj 2,000 MG In NS Inj 100 / 100 100 ML @ 200 mls/hr IV.SIG Q24H [facility] Rx#:[id number] Output: Urine 800 / 800 850 / 850 Other: # Voids 2 Date of Last Bowel Movement 09/06/18 Narrative: GENERAL: Overweight WDWN male patient, INAD. Awake and alert. Sitting up on side of bed. SKIN: Warm and dry. HEAD: Atraumatic. Normocephalic. EYES: Pupils equal and round. No scleral icterus. No injection or drainage. ENT: No nasal bleeding or discharge. Mucous membranes pink and moist. NECK: Trachea midline. CARDIOVASCULAR: Irregular. RESPIRATORY: No accessory muscle use. Clear to auscultation. Breath sounds equal bilaterally. GASTROINTESTINAL: Abdomen soft, non-tender, nondistended. +BS. MUSCULOSKELETAL: Extremities without clubbing, cyanosis. +trace to 1+ bilateral lower extremity pitting edema. No obvious deformities. NEUROLOGICAL: Awake and alert. No obvious cranial nerve deficits. Motor grossly within normal limits. Able to move all extremities spontaneously. Normal speech. PSYCHIATRIC: Appropriate mood and affect; insight and judgment normal. Results - Labs CBC & Chem 7: 09/09/18 13:54 09/09/18 04:34 Laboratory Results - last 24 hr 09/08/18 09/08/18 09/08/18 08:00 08:02 10:54 Sodium 142 Potassium 3.8 Chloride 105 Carbon Dioxide 30.8 Anion Gap 6 BUN 32 H Creatinine 1.53 H Estimated GFR 45 L POC Glucose 95 119 H Random Glucose 99 Calcium 9.0 09/08/18 09/08/18 09/09/18 17:35 20:42 04:34 Sodium 142 Potassium 3.6 Chloride 103 Carbon Dioxide 31.4 Anion Gap 8 BUN 40 H Creatinine 1.46 H Estimated GFR 47 L POC Glucose 131 H 150 H Random Glucose 91 Calcium 9.0 Assessment and Plan - Plan 72-year-old male admitted with: Acute on chronic respiratory failure secondary to diastolic CHF exacerbation. BNP 1559 - Noncompliance with diet and fluid restriction. Patient also has been switching his diuretics on his own. Per the last corporate development manager note He is supposed to be on Bumex. - Patient received a dose of IV Lasix in the ED. We will switch him to IV Bumex 1 mg twice a day and add Zaroxolyn for the next 2 days. BP low, unable to give Bumex or Zaroxolyn - Monitor I/O. Diuresing well, continue to monitor - Continue with supplemental oxygen. Patient uses oxygen at home during the day and has a CPAP at night. - Continue Coreg - Cardiology following, appreciate assistance. Recurrent admissions for CHF exacerbation. Discussed with Dr. Worthington. - Discussed with the patient he needs frequent follow-up with PCP and cardiology - We discussed sodium and fluid restriction at length again. The patient also needs to lose weight. This was discussed with him at length with his at the bedside. Patient will benefit from home health to help ensure medication compliance. - continue on fluid restriction Atypical chest pain ?demand ischemia, BP 89/52 patient reports dull nonradicular right sided chest pain with nausea - obtain ECG and troponin level - place on telemetry - continue on ASA 81mg daily - monitor Suspected PNA - continue on IV abx - continue on bronchodilators and mucolytics - obtain sputum cx - monitor respiratory status Chronic kidney disease: creatinine appears to be near baseline - Monitor closely. Careful with diuretics. Avoid nephrotoxins. - monitor kidney fxn as indicated Diabetes mellitus - Continue home dose glipizide. 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 Guillen Discharge Planning: Likely discharge in the next 24-48 hours. Discharge pending cardiology clearance.
[2018-09-09] MEDS: Insulin NovoLIN Regular Correctional Sugar Inj SQ SCH ×3 (09:18→17:01)
[2018-09-09] MEDS: Carvedilol 12.5 MG Tablet PO SCH (09:19)
[2018-09-09] MEDS: Fenofibrate 145 MG Tablet PO SCH (09:19)
[2018-09-09] MEDS: guaiFENesin 600 MG ER Tablet PO SCH ×2 (09:19→22:05)
[2018-09-09] MEDS: GLIPIZIDE PO SCH (09:19)
[2018-09-09 10:50] LABS: Creatine Kinase 38 U/L (39-308)
[2018-09-09] MEDS: Heparin - SQ 10,000 UNITS/ML Vial SQ SCH ×2 (11:55→22:05)
[2018-09-09] MEDS: Umeclindinium 62.5 MCG/Vilanterol 25 MCG Inhaler INH SCH (11:56)
[2018-09-09 14:35] LABS: Baso # (Auto) 0.1 th/mm3 (0.0-0.2); Eos # (Auto) 0.2 th/mm3 (0.0-0.4); Eos % (Auto) 3.4 % (0.0-4.0); Hematocrit 39.1 % (39.0-51.0); Hemoglobin 12.9 gm/dL (13.0-17.0); Lymph # (Auto) 1.3 th/mm3 (1.0-4.8); Mean Corpuscular HGB Conc 33.1 % (32.0-36.0); Mean Corpuscular Hemoglobin 30.4 pg (27.0-34.0); Mean Platelet Volume 9.9 fL (7.0-11.0); Mono # (Auto) 0.7 th/mm3 (0.0-0.9); Mono % (Auto) 11.7 % (0.0-8.0); Neut # (Auto) 3.8 th/mm3 (1.8-7.7); Neut % (Auto) 61.9 % (16.0-70.0); Platelet Count 138 th/mm3 (150-450); Red Blood Count 4.25 mil/mm3 (4.50-5.90); Red Cell Distribution Width 16.5 % (11.6-17.2); White Blood Count 6.1 th/mm3 (4.0-11.0)
[2018-09-09] MEDS: Azithromycin Inj 500 MG in Sodium Chlor 0.9% Inj 250 ML IV.SIG SCH (17:01)
--- NOTE | 2018-09-09 18:19 | ECG ---
Date Performed: 09/09/2018 Time Performed: 10:04:25 PTAGE: 72 years EKG: Sinus rhythm WITH FIRST DEGREE AV BLOCK WITH OCCASIONAL VENTRICULAR PREMATURE COMPLEXES WITH OCCASIONAL SUPRAVENT RICULAR PREMATURE COMPLEXES ABNORMAL ECG PREVIOUS TRACING : 09/07/2018 06.41 Since the previous tracing, no significant change noted DOCTOR: Cristian Uriarte Interpretating Date/Time 09/09/2018 18:19:00
[2018-09-09] MEDS: Latanoprost 0.005% Opth Drops 2.5 ML Bottle EACH EYE SCH (18:39)
[2018-09-09] MEDS: Zolpidem Tartrate 5 MG Tablet PO PRN (22:07)
[2018-09-10] MEDS: Insulin NovoLIN Regular Correctional Sugar Inj SQ SCH ×3 (00:11→14:29)
--- NOTE | 2018-09-10 00:30 | P.PNCA ---
Subjective Interval history: Not feeling well today Mild atypical chest pain throughout the day No changes on EKG, Trop negative Medications and Allergies Active Medications: Active Medications Albuterol (Duoneb Neb (Keysha)) 1 ampul NEB Q6HR WHILE AWAKE NEB [facility] Last Admin: 09/09/18 21:45 Dose: 1 ampul Aspirin (Aspirin Chew) 81 mg PO DAILY [facility] Last Admin: 09/09/18 09:18 Dose: 81 mg Atorvastatin Calcium (Lipitor) 80 mg PO DAILY [facility] Last Admin: 09/09/18 09:18 Dose: 80 mg Budesonide (Pulmicort Respule Neb) 0.25 mg NEB BID NEB [facility] Last Admin: 09/09/18 21:45 Dose: 0.25 mg Bumetanide (Bumex Inj) 1 mg IV.PUSH BID@0900,1800 [facility] Last Admin: 09/09/18 09:20 Dose: 1 mg Carvedilol (Coreg) 12.5 mg PO BID [facility] Last Admin: 09/09/18 09:19 Dose: 12.5 mg Dextrose (D50w Vial) 50 ml IV.PUSH UNSCH PRN PRN Reason: PER HYPOGLYCEMIA PROTOCOL Fenofibrate (Tricor) 145 mg PO DAILY [facility] Last Admin: 09/09/18 09:19 Dose: 145 mg Glucagon (Glucagon Inj) 1 mg OTHER PRN PRN PRN Reason: for Hypoglycemia Protocol Guaifenesin (Mucinex Er) 600 mg PO BID [facility] Last Admin: 09/09/18 22:05 Dose: 600 mg Heparin Sodium (Porcine) (Heparin Inj) 5,000 units SQ Q12H [facility] Last Admin: 09/09/18 22:05 Dose: 5,000 units Ceftriaxone Sodium 2,000 mg/ (Sodium Chloride) 100 mls @ 200 mls/hr IV.SIG Q24H [facility] Last Infusion: 09/09/18 18:38 Dose: 0 mls/hr Azithromycin 500 mg/ Sodium (Chloride) 250 mls @ 250 mls/hr IV.SIG Q24H [facility] Last Infusion: 09/09/18 18:38 Dose: 0 mls/hr Insulin Human Regular (Novolin R Correctional Sugar Inj) 0 units SQ ACHS [facility]; Protocol Last Admin: 09/10/18 00:11 Dose: Not Given Latanoprost (Xalatan 0.005% Opth Drops) 1 drop EACH EYE QPM [facility] Last Admin: 09/09/18 18:39 Dose: Not Given Methocarbamol (Robaxin) 500 mg PO QID PRN PRN Reason: MUSCLE PAIN Metolazone (Zaroxolyn) 2.5 mg PO DAILY [facility] Last Admin: 09/08/18 08:09 Dose: 2.5 mg Nitroglycerin (Nitrostat Sl) 0.4 mg SL Q5M PRN PRN Reason: CHEST PAIN Pt Own Med(Glipizide (2.5 Er )) 0 each PO DAILY [facility] Last Admin: 09/09/18 09:19 Dose: Not Given Sodium Chloride (Ns Flush) 2 ml IV.FLUSH BID [facility] Last Admin: 09/09/18 22:06 Dose: 2 ml Sodium Chloride (Ns Flush) 2 ml IV.FLUSH UNSCH PRN PRN Reason: FLUSH AFTER USING IV ACCESS Umeclidinium/Vilanterol (Anoro-Ellipta 62.5/25 Mcg Inh) 1 puff INH Q24H [facility] Last Admin: 09/09/18 11:56 Dose: 1 puff Zolpidem Tartrate (Ambien) 5 mg PO HS PRN PRN Reason: INSOMNIA Last Admin: 09/09/18 22:07 Dose: 5 mg Allergies Allergy/AdvReac Type Severity Reaction Status Date / Time Sulfa (Sulfonamide Allergy Mild Nausea/Vomi Verified 09/07/18 05:59 Antibiotics) ting Home Medications Medication Instructions Recorded Confirmed Type albuterol sulfate 2.5 mg INHALATION Q4-6H PRN 07/24/18 09/07/18 History aspirin 81 mg PO DAILY 07/24/18 09/07/18 History carvedilol [Coreg] 12.5 mg PO BID 07/24/18 09/07/18 History fenofibrate 160 mg PO DAILY 07/24/18 09/07/18 History glipizide 2.5 mg PO DAILY 07/24/18 09/07/18 History latanoprost 1 drp OPHTHALMIC (EYE) QPM 07/24/18 09/07/18 History methocarbamol 500 mg PO QID PRN 07/24/18 09/07/18 History umeclidinium-vilanterol [Anoro 1 inh INHALATION Q24H 07/24/18 09/07/18 History Ellipta] atorvastatin 80 mg PO DAILY 08/25/18 09/07/18 History furosemide 60 mg PO BID 08/25/18 09/07/18 History Physical Exam Vital signs: Vital Signs 09/09/18 04:00 09/09/18 08:00 09/09/18 08:26 Temperature 97.5 F L 97.3 F L Pulse Rate 65 72 82 Respiratory Rate 17 14 18 Blood Pressure 111/57 L 89/52 L Pulse Oximetry 93 L 98 96 09/09/18 11:44 09/09/18 12:00 09/09/18 16:00 Temperature 98.2 F 98.1 F Pulse Rate 84 73 66 Respiratory Rate 17 18 16 Blood Pressure 116/59 L 111/56 L Pulse Oximetry 91 L 94 L 09/09/18 20:00 09/09/18 21:47 Temperature 97.9 F Pulse Rate 75 76 Respiratory Rate 15 20 Blood Pressure 132/60 Pulse Oximetry 98 91 L Intake & Output 09/09/18 09/09/18 09/10/18 06:59 18:59 06:59 Intake Total 350 / 350 Output Total 850 / 850 910 / 910 Balance -500 / -500 -910 / -910 Weight 119.5 kg Intake: IV 350 / 350 Azithromycin Inj 500 MG In NS 250 / 250 Inj 250 ML @ 250 mls/hr IV.SIG Q24H [facility] Rx#:[id number] Rocephin Inj 2,000 MG In NS Inj 100 / 100 100 ML @ 200 mls/hr IV.SIG Q24H [facility] Rx#:[id number] Output: Urine 850 / 850 910 / 910 Other: # Voids 1 Date of Last Bowel Movement 09/08/18 09/08/18 # Bowel Movements 2 Narrative: GENERAL: Overweight WDWN male patient, INAD. Awake and alert. Sitting up on side of bed. SKIN: Warm and dry. HEAD: Atraumatic. Normocephalic. EYES: Pupils equal and round. No scleral icterus. No injection or drainage. ENT: No nasal bleeding or discharge. Mucous membranes pink and moist. NECK: Trachea midline. CARDIOVASCULAR: RRR RESPIRATORY: No accessory muscle use. Clear to auscultation. Breath sounds equal bilaterally. GASTROINTESTINAL: Abdomen soft, non-tender, nondistended. +BS. MUSCULOSKELETAL: Extremities without clubbing, cyanosis. +trace to 1+ bilateral lower extremity pitting edema. No obvious deformities. NEUROLOGICAL: Awake and alert. No obvious cranial nerve deficits. Motor grossly within normal limits. Able to move all extremities spontaneously. Normal speech. PSYCHIATRIC: Appropriate mood and affect; insight and judgment normal. Results 09/09/18 13:54 09/09/18 04:34 Cardiac Enzymes 09/09/18 Range/Units 09:58 Troponin I Less than 0.02 L (0.02-0.05) ng/mL CBC 09/09/18 Range/Units 13:54 WBC 6.1 (4.0-11.0) th/mm3 RBC 4.25 L (4.50-5.90) mil/mm3 Hgb 12.9 L (13.0-17.0) gm/dL Hct 39.1 (39.0-51.0) % Plt Count 138 L (150-450) th/mm3 Neut # (Auto) 3.8 (1.8-7.7) th/mm3 Lymph # (Auto) 1.3 (1.0-4.8) th/mm3 [place] # (Auto) 0.7 (0.0-0.9) th/mm3 Eos # (Auto) 0.2 (0.0-0.4) th/mm3 Baso # (Auto) 0.1 (0.0-0.2) th/mm3 Comprehensive Metabolic Panel 09/08/18 09/09/18 Range/Units 08:00 04:34 Sodium 142 142 (136-145) meq/L Potassium 3.8 3.6 (3.5-5.1) meq/L Chloride 105 103 (98-107) meq/L Carbon Dioxide 30.8 31.4 (21.0-32.0) meq/L BUN 32 H 40 H (7-18) mg/dL Creatinine 1.53 H 1.46 H (0.60-1.30) mg/dL Calcium 9.0 9.0 (8.5-10.1) mg/dL Intake and Output 09/09/18 09/09/18 09/10/18 14:59 22:59 06:59 Output Total 250 / 250 660 / 660 Balance -250 / -250 -660 / -660 Output: Urine 250 / 250 660 / 660 Other: # Voids 1 Date of Last Bowel Movement 09/08/18 09/08/18 # Bowel Movements 2 Assessment and Plan - Assessment (1) Chest pain Code(s): R07.9 - Chest pain, unspecified Status: Acute (2) SOB (shortness of breath) Code(s): R06.02 - Shortness of breath Status: Acute (3) Chronic diastolic heart failure Code(s): I50.32 - Chronic diastolic (congestive) heart failure Status: Acute (4) Mild coronary artery disease Code(s): I25.10 - Atherosclerotic heart disease of [place] coronary artery without angina pectoris Status: Acute (5) Acute on chronic diastolic (congestive) heart failure Code(s): I50.33 - Acute on chronic diastolic (congestive) heart failure Status : Acute (6) Pneumonia Code(s): J18.9 - Pneumonia, unspecified organism Status: Acute - Plan 1) Acute on chronic diastolic heart failure Diureses as possible Bumex/Zaroxolyn Discussed again the importance of dietary sodium and fluid restriction Ultimately he gets it, but just doesn't seem to follow it at home Doesn't think he eats much salt, but they eat out at restaurants with high salt meals 2) Mild CAD by previous cath 3) Possible PNA 4) Atypical chest pain Cath earlier this year with mild disease per report
[2018-09-10 06:25] VITALS: TEMP 97.4
[2018-09-10] MEDS: Fenofibrate 145 MG Tablet PO SCH (09:01)
[2018-09-10] MEDS: guaiFENesin 600 MG ER Tablet PO SCH (09:01)
--- NOTE | 2018-09-10 10:04 | P.DS ---
Date of admission: 09/07/18 09:35 Primary care physician: No Primary Care Physician Attending physician on discharge: Cristi Guillen Anticipated date of discharge: 09/10/18 Brief History from admission: 72-year-old male with a medical history significant for acute on chronic diastolic CHF, COPD, DM, Hypertension and hyperlipidemia with recurrent CHF exacerbation secondary to noncompliance presented to the hospital earlier this morning due to worsening shortness of breath. Patient reports his symptoms started a couple of days ago. He states he was put on torsemide but he discontinued this medication a few days ago because he did not think it was working. He went back to taking Lasix which he states worked better for his lower extremity swelling. However shortness of breath persisted yesterday afternoon and throughout the night. He initially reported some chest discomfort. However he now reports that completely resolved. He states he has not been sleeping and requesting a medication to help him sleep tonight. He denies any associated nausea or vomiting. Patient reports he has an occasional cough, unchanged. Not bringing up much sputum. He uses a CPAP at night for sleep apnea. He reports his weight has been unchanged. He is at bedside reports he does not put additional salt in his food. However they still it out and he does not really watch his fluid intake. He denies any fevers or chills. Patient update on day of discharge: Follow-up on patient with CHF exacerbation, pneumonia. Patient seen and examined. Patient states he feels much better today. He reports his breathing has improved. He denies any complaints of chest pain or shortness of breath. He denies any nausea, vomiting or abdominal pain. He is hopeful he can be discharged today. DS: Diagnosis - Discharge Diagnosis (1) SOB (shortness of breath) Status: Acute (2) Acute on chronic diastolic (congestive) heart failure Status: Acute (3) Pneumonia Status: Acute (4) Chest pain Status: Acute (5) Aneurysmal dilatation Status: Acute DS: Medications - Discharge Medications Prescriptions: azithromycin [Zithromax] 500 mg PO DAILY #5 tab bumetanide 1 mg PO BID #60 tab guaifenesin [Mucinex] 600 mg PO BID #15 tab DS: Summary Hospital Course: Patient admitted with acute on chronic respiratory failure secondary to diastolic CHF exacerbation. Patient had elevated BNP of 1559. Patient was also treated for suspected pneumonia. Patient was started on IV Bumex and Zaroxolyn. Patient was seen in consultation by cardiology. Patient diuresed well and his breathing improved. Patient was counseled extensively on CHF and how to prevent future exacerbations. 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 Patient improved clinically. Patient met maximum benefit from hospitalization. Patient was cleared for discharge from cardiac standpoint. - Time Spent with Patient Total time spent providing and/or coordinating discharge services: Greater than 30 minutes - Quality: VTE Deep Vein Thrombosis/Pulmonary Embolism Present on Admission: No Exam Vital signs: Vital Signs 09/09/18 11:44 09/09/18 12:00 09/09/18 16:00 Temperature 98.2 F 98.1 F Pulse Rate 84 73 66 Respiratory Rate 17 18 16 Blood Pressure 116/59 L 111/56 L Pulse Oximetry 91 L 94 L 09/09/18 20:00 09/09/18 21:47 09/10/18 00:00 Temperature 97.9 F 98.5 F Pulse Rate 75 76 78 Respiratory Rate 15 20 19 Blood Pressure 132/60 135/65 Pulse Oximetry 98 91 L 95 09/10/18 04:00 09/10/18 07:51 Temperature 97.4 F L Pulse Rate 66 86 Respiratory Rate 18 20 Blood Pressure 110/51 L Pulse Oximetry 96 93 L Intake & Output 09/09/18 09/10/18 09/10/18 18:59 06:59 18:59 Output Total 910 / 910 1200 / 1200 Balance -910 / -910 -1200 / -1200 Weight 118.5 kg Output: Urine 910 / 910 1200 / 1200 Other: # Voids 1 Date of Last Bowel Movement 09/08/18 09/08/18 # Bowel Movements 2 Narrative: GENERAL: Overweight WDWN male patient, INAD. Awake and alert. Sitting up on side of bed. SKIN: Warm and dry. HEENT: Atraumatic. Normocephalic. Pupils equal and round. No scleral icterus. No injection or drainage. No nasal bleeding or discharge. Mucous membranes pink and moist. NECK: Trachea midline. CARDIOVASCULAR: Irregular. RESPIRATORY: No accessory muscle use. Clear to auscultation. Breath sounds equal bilaterally. GASTROINTESTINAL: Abdomen soft, non-tender, nondistended. +BS. MUSCULOSKELETAL: Extremities without clubbing, cyanosis. +trace to 1+ bilateral lower extremity pitting edema. No obvious deformities. NEUROLOGICAL: Awake and alert. No obvious cranial nerve deficits. Motor grossly within normal limits. Able to move all extremities spontaneously. Normal speech. PSYCHIATRIC: Appropriate mood and affect; insight and judgment normal. Results Procedures completed during hospitalization: None Labs on day of discharge: Labs from last 24 hours 09/10/18 09/09/18 09/09/18 07:48 22:09 16:45 WBC RBC Hgb Hct MCV MCH MCHC RDW Plt Count MPV Neut % (Auto) Lymph % (Auto) [place] % (Auto) Eos % (Auto) Baso % (Auto) Neut # (Auto) Lymph # (Auto) [place] # (Auto) Eos # (Auto) Baso # (Auto) WBC Differential Differential Comment POC Glucose 109 108 94 Total Creatine Kinase Troponin I 09/09/18 09/09/18 09/09/18 13:54 11:55 09:58 WBC 6.1 RBC 4.25 L Hgb 12.9 L Hct 39.1 MCV 92.0 MCH 30.4 MCHC 33.1 RDW 16.5 Plt Count 138 L MPV 9.9 Neut % (Auto) 61.9 Lymph % (Auto) 22.0 Butts % (Auto) 11.7 H Eos % (Auto) 3.4 Baso % (Auto) 1.0 Neut # (Auto) 3.8 Lymph # (Auto) 1.3 Butts # (Auto) 0.7 Eos # (Auto) 0.2 Baso # (Auto) 0.1 WBC Differential . Differential Comment Auto diff final POC Glucose 108 Total Creatine Kinase 38 L Troponin I Less than 0.02 L - Impressions ITS Impressions Chest X-Ray 09/07/18 06:22 CONCLUSION: Vascular congestion and basilar parenchymal opacities with appearance similar to prior exam Chest CTA 09/07/18 07:18 CONCLUSION: 1. No central pulmonary embolus. 2. Bibasilar consolidation greater right lower lobe likely infiltrate. 3. Tiny bilateral pleural effusions. 4. 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 5. Coronary artery calcifications. Discharge Plan - Discharge Disposition Patient Disposition: 01 Discharge Home - Discharge Condition Condition: Stable - Discharge Order Discharge Orders: Discharge Order (Routine); Ordered 09/10/18 Ordered By: [place] - Discharge Details Anticipated Discharge Date: 09/10/18 - Physicians Team Primary Care Provider: Primary Care Marisela Claros Attending Provider: Cristi Guillen Other Providers: Colton Worthington DO
[2018-09-10 10:18] VITALS: BP 138/62
[2018-09-10 10:25] VITALS: O2SAT 93
[2018-09-10 11:47] VITALS: PULSE 68; RESP 22
[2018-09-10] MEDS: Heparin - SQ 10,000 UNITS/ML Vial SQ SCH (14:27)
[2018-09-10] MEDS: Umeclindinium 62.5 MCG/Vilanterol 25 MCG Inhaler INH SCH (14:29)
--- NOTE | 2018-09-10 23:18 | P.PNCA ---
Subjective Interval history: No events overnight No chest pain/SOB Medications and Allergies Allergies Allergy/AdvReac Type Severity Reaction Status Date / Time Sulfa (Sulfonamide Allergy Mild Nausea/Vomi Verified 09/07/18 05:59 Antibiotics) ting Home Medications Medication Instructions Recorded Confirmed Type albuterol sulfate 2.5 mg INHALATION Q4-6H PRN 07/24/18 09/07/18 History aspirin 81 mg PO DAILY 07/24/18 09/07/18 History carvedilol [Coreg] 12.5 mg PO BID 07/24/18 09/07/18 History fenofibrate 160 mg PO DAILY 07/24/18 09/07/18 History glipizide 2.5 mg PO DAILY 07/24/18 09/07/18 History latanoprost 1 drp OPHTHALMIC (EYE) QPM 07/24/18 09/07/18 History methocarbamol 500 mg PO QID PRN 07/24/18 09/07/18 History umeclidinium-vilanterol [Anoro 1 inh INHALATION Q24H 07/24/18 09/07/18 History Ellipta] atorvastatin 80 mg PO DAILY 08/25/18 09/07/18 History Physical Exam Vital signs: Vital Signs 09/10/18 00:00 09/10/18 04:00 09/10/18 07:51 Temperature 98.5 F 97.4 F L Pulse Rate 78 66 86 Respiratory Rate 19 18 20 Blood Pressure 135/65 110/51 L Pulse Oximetry 95 96 93 L 09/10/18 08:00 09/10/18 09:00 09/10/18 11:46 Temperature 97.4 F L Pulse Rate 79 85 68 Respiratory Rate 18 22 Blood Pressure 138/62 Pulse Oximetry 94 L Intake & Output 09/10/18 09/10/18 09/11/18 06:59 18:59 06:59 Output Total 1200 / 1200 Balance -1200 / -1200 Weight 118.5 kg Output: Urine 1200 / 1200 Other: Date of Last Bowel Movement 09/08/18 09/08/18 Narrative: GENERAL: Overweight WDWN male patient, INAD. Awake and alert. Sitting up on side of bed. SKIN: Warm and dry. HEENT: Atraumatic. Normocephalic. Pupils equal and round. No scleral icterus. No injection or drainage. No nasal bleeding or discharge. Mucous membranes pink and moist. NECK: Trachea midline. CARDIOVASCULAR: Irregular. RESPIRATORY: No accessory muscle use. Clear to auscultation. Breath sounds equal bilaterally. GASTROINTESTINAL: Abdomen soft, non-tender, nondistended. +BS. MUSCULOSKELETAL: Extremities without clubbing, cyanosis. +trace to 1+ bilateral lower extremity pitting edema. No obvious deformities. NEUROLOGICAL: Awake and alert. No obvious cranial nerve deficits. Motor grossly within normal limits. Able to move all extremities spontaneously. Normal speech. PSYCHIATRIC: Appropriate mood and affect; insight and judgment normal. Results 09/09/18 13:54 09/09/18 04:34 Cardiac Enzymes 09/09/18 Range/Units 09:58 Troponin I Less than 0.02 L (0.02-0.05) ng/mL CBC 09/09/18 Range/Units 13:54 WBC 6.1 (4.0-11.0) th/mm3 RBC 4.25 L (4.50-5.90) mil/mm3 Hgb 12.9 L (13.0-17.0) gm/dL Hct 39.1 (39.0-51.0) % Plt Count 138 L (150-450) th/mm3 Neut # (Auto) 3.8 (1.8-7.7) th/mm3 Lymph # (Auto) 1.3 (1.0-4.8) th/mm3 [place] # (Auto) 0.7 (0.0-0.9) th/mm3 Eos # (Auto) 0.2 (0.0-0.4) th/mm3 Baso # (Auto) 0.1 (0.0-0.2) th/mm3 Comprehensive Metabolic Panel 09/09/18 Range/Units 04:34 Sodium 142 (136-145) meq/L Potassium 3.6 (3.5-5.1) meq/L Chloride 103 (98-107) meq/L Carbon Dioxide 31.4 (21.0-32.0) meq/L BUN 40 H (7-18) mg/dL Creatinine 1.46 H (0.60-1.30) mg/dL Calcium 9.0 (8.5-10.1) mg/dL Intake and Output 09/10/18 09/10/18 09/11/18 14:59 22:59 06:59 Other: Date of Last Bowel Movement 09/08/18 Assessment and Plan - Assessment (1) Chest pain Code(s): R07.9 - Chest pain, unspecified Status: Acute (2) SOB (shortness of breath) Code(s): R06.02 - Shortness of breath Status: Acute (3) Chronic diastolic heart failure Code(s): I50.32 - Chronic diastolic (congestive) heart failure Status: Acute (4) Mild coronary artery disease Code(s): I25.10 - Atherosclerotic heart disease of [place] coronary artery without angina pectoris Status: Acute (5) Acute on chronic diastolic (congestive) heart failure Code(s): I50.33 - Acute on chronic diastolic (congestive) heart failure Status : Acute (6) Pneumonia Code(s): J18.9 - Pneumonia, unspecified organism Status: Acute - Plan 1) Acute on chronic diastolic heart failure Diureses as possible 5L off over hospital course Sukh/Ed Discussed again the importance of dietary sodium and fluid restriction Ultimately he gets it, but just doesn't seem to follow it at home Doesn't think he eats much salt, but they eat out at restaurants with high salt meals 2) Mild CAD by previous cath 3) Possible PNA 4) Atypical chest pain Cath earlier this year with mild disease per report 5) Cardiovascularly stable for discharge Follow up with Dr. Noyola
== END 2018-09-10 13:34 | disposition home or self-care (01) ==
LOC: NEPE 05:57 → NEDA 09:35 → N05 11:27
PROVIDERS: ADMIT Hospitalist; ATTEND Hospitalist

== ENCOUNTER 2018-12-21 15:02 | Observation (INO) ==
[2018-12-21] MEDS ORDERED: Aspirin 325 MG Tablet PO ONE (17:48)
--- NOTE | 2018-12-21 18:11 | ED ---
HPI General Chief Complaint: Chest Pain Stated Complaint: Cardiac /SOB Time Seen by Provider: 12/21/18 17:40 Source: patient and family Mode of arrival: wheelchair Limitations: no limitations History of Present Illness HPI narrative: 73-year-old male who presents to the ED for evaluation of left- sided chest pain and shortness of breath. Per patient he has had symptoms since Friday. Patient started with a sore throat and a move more into his chest. Per patient has been having productive cough. He has a history of CHF, cardiac disease, COPD. He uses oxygen chronically and his sats usually in the low 90s. Per patient he has been more short of breath with exertion as well as with movement but he is also been having left-sided chest pain that started for the past couple of days. Per patient the chest pain started to become more sharp today and radiated to his left jaw as well as his left arm which prompted evaluation today. He follows with Dr. Noyola for cardiology. Denies any recent travel. No recent surgeries. He states that he had a heart cath in May when he had a heart attack but he did not had any stents. No other medical issues reported. Per patient currently pain is 5 out of 10. No urinary or bowel movement issues. He states compliance with his medications. He does take a blood thinner. Related Data Home Medications Medication Instructions Recorded Confirmed albuterol sulfate 2.5 mg INHALATION Q4-6H PRN 07/24/18 12/21/18 aspirin 81 mg PO DAILY 07/24/18 12/21/18 carvedilol [Coreg] 12.5 mg PO BID 07/24/18 12/21/18 fenofibrate 160 mg PO DAILY 07/24/18 12/21/18 glipizide 2.5 mg PO DAILY 07/24/18 12/21/18 latanoprost 1 drp OPHTHALMIC (EYE) QPM 07/24/18 12/21/18 methocarbamol 500 mg PO QID PRN 07/24/18 12/21/18 umeclidinium-vilanterol [Anoro 1 inh INHALATION Q24H 07/24/18 12/21/18 Ellipta] atorvastatin 80 mg PO DAILY 08/25/18 12/21/18 zolpidem 5 mg PO HS 12/21/18 12/21/18 Previous Rx's Medication Instructions Recorded bumetanide 1 mg PO BID #60 tab 09/10/18 guaifenesin [Mucinex] 600 mg PO BID #15 tab 09/10/18 Allergies Allergy/AdvReac Type Severity Reaction Status Date / Time Sulfa (Sulfonamide Allergy Mild Nausea/Vomi Verified 12/21/18 17:48 Antibiotics) ting Review of Systems ROS: all other systems reviewed are negative [facility] Medical History Medical History Asthma (Acute) CHF (congestive heart failure) (Acute) Diabetes (Acute) HTN (hypertension) (Acute) High cholesterol (Acute) Myocardial infarction (Acute) Surgical History Surgical History H/O melanoma excision (Acute) History of knee surgery (Acute) Hx of appendectomy (Acute) Status post cardiac catheterization (Acute) Family History Family History Father FH: CABG (coronary artery bypass surgery) Mother Heart disease Social History Social History Substance History: No History of Abuse Second Hand Smoke Exposure: No Smoking Status: Former smoker Tobacco Type: Cigarettes How Often Do You Have a Drink Containing Alcohol: Monthly or less Recent Travel in [facility] within the Last 8 Weeks: No Recent Out of Country Travel within the Last 8 Weeks: No Immunization History Tetanus Immunization: >5 Years Exam Narrative Exam Narrative: GENERAL: Well-appearing in some distress SKIN: Focused skin assessment warm/dry. HEAD: Atraumatic. Normocephalic. EYES: Pupils equal and round. No scleral icterus. No injection or drainage. ENT: No nasal bleeding or discharge. Mucous membranes pink and moist. Tongue is midline. No uvula deviation. TMs are clear with no sign of infection or perforation. NECK: Trachea midline. No JVD. CARDIOVASCULAR: Regular rate and rhythm. No murmur appreciated. RESPIRATORY: No accessory muscle use. Wheezing and rales heard in all lung garcia. Breath sounds equal bilaterally. GASTROINTESTINAL: Abdomen soft, wheezing and rales heard in the lung garcia, nondistended. Hepatic and splenic margins not palpable. MUSCULOSKELETAL: No obvious deformities. No clubbing. No cyanosis. No edema. Full range of motion of the upper and lower extremities bilaterally. 2+ pulses bilaterally. NEUROLOGICAL: Awake and alert. No obvious cranial nerve deficits. Motor grossly within normal limits. Normal speech. PSYCHIATRIC: Appropriate mood and affect; insight and judgment normal. Course Initial Documented Vital Signs Pulse Rate 85 12/21/18 15:16 Respiratory Rate 22 12/21/18 15:16 Blood Pressure 107/59 L 12/21/18 15:16 Pulse Oximetry 93 L 12/21/18 15:16 Last Documented Vital Signs Pulse Rate 82 12/21/18 20:42 Respiratory Rate 20 12/21/18 20:42 Blood Pressure 124/59 L 12/21/18 20:42 Pulse Oximetry 95 12/21/18 20:42 Medical Decision Making MDM Narrative Medical decision making narrative: 73-year-old male who presents to the ED for evaluation of shortness of breath. Patient was properly examined was found to have signs and symptoms consistent with appears to be has been in shortness of breath. Labs and imaging ordered. Labs and imaging show what appears to be CHF exacerbation. No sign of ACS at this time. CTA was ordered as patient has a history of aneurysm. Patient did not know about the aneurysm when I initially told him about this but he does have documented history of this on his records. CTA did not show any sign of dissection but did show the aneurysm had grown slightly to 4.6 cm on the ascending aorta as well as another one on the right iliac artery. Patient and family were made aware of this. Case was discussed with my attending who agrees the patient should be admitted. Patient is using more oxygen than her normal. Patient did improve with some duo nebs. Case discussed with Dr. Shelby who agrees admission to her service for further evaluation of the chest pain and the CHF exacerbation. Medical Screen Exam Complete: Yes Emergency Medical Condition: Yes Differential Diagnosis Differential Diagnosis: CHF exacerbation versus cardiac chest pain versus pneumonia versus influenza versus ACS Medical Records Medical records reviewed: Yes I reviewed the patient's medical records. Lab Data Lab results reviewed: Yes I reviewed the patient's lab results. Result diagrams: 12/21/18 17:55 12/21/18 17:55 Lab Results 12/21/18 12/21/18 12/21/18 Range/Units 17:55 17:55 17:55 WBC 5.2 (4.0-11.0) th/mm3 RBC 4.48 L (4.50-5.90) mil/mm3 Hgb 13.6 (13.0-17.0) gm/dL Hct 41.7 (39.0-51.0) % MCV 93.2 (80.0-100.0) fL MCH 30.4 (27.0-34.0) pg MCHC 32.6 (32.0-36.0) % RDW 15.7 (11.6-17.2) % Plt Count 154 (150-450) th/mm3 MPV 9.8 (7.0-11.0) fL Neut % (Auto) 60.4 (16.0-70.0) % Lymph % (Auto) 22.5 (9.0-44.0) % [place] % (Auto) 13.1 H (0.0-8.0) % Eos % (Auto) 3.1 (0.0-4.0) % Baso % (Auto) 0.9 (0.0-2.0) % Neut # (Auto) 3.1 (1.8-7.7) th/mm3 Lymph # (Auto) 1.2 (1.0-4.8) th/mm3 [place] # (Auto) 0.7 (0.0-0.9) th/mm3 Eos # (Auto) 0.2 (0.0-0.4) th/mm3 Baso # (Auto) 0.0 (0.0-0.2) th/mm3 WBC Differential . Differential Comment Auto diff final PT 11.4 (9.8-11.6) sec INR 1.1 Ratio APTT 24.7 (23.4-31.7) sec D-Dimer Quant (PE/DVT) 0.51 H (0.00-0.50) mg/L FEU Sodium 144 (136-145) meq/L Potassium 4.0 (3.5-5.1) meq/L Chloride 107 (98-107) meq/L Carbon Dioxide 30.3 (21.0-32.0) meq/L Anion Gap 7 (5-15) meq/L BUN 29 H (7-18) mg/dL Creatinine 1.78 H (0.60-1.30) mg/dL Estimated GFR 38 L (>89) mL/min Random Glucose 89 (74-106) mg/dL Calcium 9.3 (8.5-10.1) mg/dL Total Bilirubin 0.7 (0.2-1.0) mg/dL AST 15 (15-37) U/L ALT 16 (12-78) U/L Alkaline Phosphatase 43 L (45-117) U/L Total Creatine Kinase 72 (39-308) U/L Troponin I Less than 0.02 L (0.02-0.05) ng/mL B-Natriuretic Peptide (0-100) pg/mL Total Protein 7.2 (6.4-8.2) g/dL Albumin 3.7 (3.4-5.0) g/dL 12/21/18 Range/Units 17:55 WBC (4.0-11.0) th/mm3 RBC (4.50-5.90) mil/mm3 Hgb (13.0-17.0) gm/dL Hct (39.0-51.0) % MCV (80.0-100.0) fL MCH (27.0-34.0) pg MCHC (32.0-36.0) % RDW (11.6-17.2) % Plt Count (150-450) th/mm3 MPV (7.0-11.0) fL Neut % (Auto) (16.0-70.0) % Lymph % (Auto) (9.0-44.0) % [place] % (Auto) (0.0-8.0) % Eos % (Auto) (0.0-4.0) % Baso % (Auto) (0.0-2.0) % Neut # (Auto) (1.8-7.7) th/mm3 Lymph # (Auto) (1.0-4.8) th/mm3 [place] # (Auto) (0.0-0.9) th/mm3 Eos # (Auto) (0.0-0.4) th/mm3 Baso # (Auto) (0.0-0.2) th/mm3 WBC Differential Differential Comment PT (9.8-11.6) sec INR Ratio APTT (23.4-31.7) sec D-Dimer Quant (PE/DVT) (0.00-0.50) mg/L FEU Sodium (136-145) meq/L Potassium (3.5-5.1) meq/L Chloride (98-107) meq/L Carbon Dioxide (21.0-32.0) meq/L Anion Gap (5-15) meq/L BUN (7-18) mg/dL Creatinine (0.60-1.30) mg/dL Estimated GFR (>89) mL/min Random Glucose (74-106) mg/dL Calcium (8.5-10.1) mg/dL Total Bilirubin (0.2-1.0) mg/dL AST (15-37) U/L ALT (12-78) U/L Alkaline Phosphatase (45-117) U/L Total Creatine Kinase (39-308) U/L Troponin I (0.02-0.05) ng/mL B-Natriuretic Peptide 1836 H (0-100) pg/mL Total Protein (6.4-8.2) g/dL Albumin (3.4-5.0) g/dL Imaging Data Attestation: I personally reviewed and interpreted this imaging study as follows : Radiologist's impression: Chest X-Ray 12/21/18 17:48 CONCLUSION: Basilar airspace disease slightly increased from previous exam in September 2018. Cardiomegaly. Thoracic Aorta CT 12/21/18 18:18 CONCLUSION: 1. Mild aneurysmal dilatation of the ascending aorta to about 4.6 cm, not significantly changed prior exam in September 2018. No abdominal aortic aneurysm. No dissection. 2. Dependent atelectasis in the lungs with moderate dextroscoliosis and mild to moderate emphysema. Mild groundglass opacity could represent some mild pulmonary edema as well. 3. Aneurysmal dilatation of right common iliac to 2.6 cm. 4. Extensive colonic diverticulosis. Small fat-containing umbilical hernia. 5. Bilateral nonobstructing renal calculi. Renal cortical atrophy. ECG Data Attestation: I personally reviewed and interpreted this ECG as follows: Interpretation: EKG shows sinus tachycardia with no sign of acute ischemia or arrhythmia. Discharge Plan Discharge Disposition Patient Disposition: ED Admit(ED Internal Use Only) Discharge Order Discharge Orders: ED Use Only Admit Order (Routine); Ordered 12/21/18 Ordered By: Lul Staples Discharge Details Diagnosis: Acute exacerbation of CHF (congestive heart failure), Chest pain, rule out acute myocardial infarction Physicians Team ED Provider: Bonnie Estrada ED Midlevel Provider: Lul Staples Primary Care Provider: UNKNOWN, Attending Provider: Sandra Shelby Discharge Interventions Interventions: Vital Signs Last Done: 12/21/18 17:45 Status ED Status: Admitted Observation Patient
--- NOTE | 2018-12-21 18:13 | XR ---
EXAM DATE: 12/21/2018 6:03 PM EST AGE/SEX: 73 years / Male INDICATIONS: Chest pain and congestion. CLINICAL DATA: This is the patient's initial encounter. Patient reports that signs and symptoms have been present for 1 day and indicates a pain score of 10/10. MEDICAL/SURGICAL HISTORY: Chronic obstructive pulmonary disease. Congestive heart failure. Ayan cardial infarction. . Cardiac cath. COMPARISON: [facility] [place], CHEST 1V SINGLE AP, 09/07/2018. . FINDINGS: Basilar airspace disease. No significant effusion. No pneumothorax. Cardiomegaly. Moderate dextroscol iosis. CONCLUSION: Basilar airspace disease slightly increased from previous exam in September 2018. Cardiomegaly. Electronically signed by: Brian Clay MD Board Certified Radiologist 12/21/2018 6:12 PM EST
[2018-12-21 18:15] LABS: Baso % (Auto) 0.9 % (0.0-2.0); Eos # (Auto) 0.2 th/mm3 (0.0-0.4); Eos % (Auto) 3.1 % (0.0-4.0); Hematocrit 41.7 % (39.0-51.0); Hemoglobin 13.6 gm/dL (13.0-17.0); Lymph # (Auto) 1.2 th/mm3 (1.0-4.8); Lymph % (Auto) 22.5 % (9.0-44.0); Mean Corpuscular HGB Conc 32.6 % (32.0-36.0); Mean Corpuscular Hemoglobin 30.4 pg (27.0-34.0); Mean Corpuscular Volume 93.2 fL (80.0-100.0); Mean Platelet Volume 9.8 fL (7.0-11.0); Mono # (Auto) 0.7 th/mm3 (0.0-0.9); Mono % (Auto) 13.1 % (0.0-8.0); Neut # (Auto) 3.1 th/mm3 (1.8-7.7); Neut % (Auto) 60.4 % (16.0-70.0); Platelet Count 154 th/mm3 (150-450); Red Blood Count 4.48 mil/mm3 (4.50-5.90); Red Cell Distribution Width 15.7 % (11.6-17.2); White Blood Count 5.2 th/mm3 (4.0-11.0)
[2018-12-21 18:32] LABS: Albumin 3.7 g/dL (3.4-5.0); Anion Gap 7 meq/L (5-15); Aspartate Aminotransferase 15 U/L (15-37); Blood Urea Nitrogen 29 mg/dL (7-18); Calcium 9.3 mg/dL (8.5-10.1); Carbon Dioxide 30.3 meq/L (21.0-32.0); Chloride 107 meq/L (98-107); Glomerular Filtration Rate 38 mL/min (>89); Glucose,Random 89 mg/dL (74-106); Sodium 144 meq/L (136-145)
[2018-12-21 18:33] LABS: Alanine Aminotransferase 16 U/L (12-78)
[2018-12-21 18:37] LABS: Alkaline Phosphatase 43 U/L (45-117); Total Protein 7.2 g/dL (6.4-8.2)
[2018-12-21 18:39] LABS: Activated Partial Thrombo Time 24.7 sec (23.4-31.7); INR 1.1 Ratio; Prothrombin Time 11.4 sec (9.8-11.6)
[2018-12-21 18:42] LABS: Creatine Kinase 72 U/L (39-308)
[2018-12-21 18:45] LABS: D-Dimer 0.51 mg/L FEU (0.00-0.50)
--- NOTE | 2018-12-21 20:16 | CT ---
EXAM DATE: 12/21/2018 8:06 PM EST AGE/SEX: 73 years / Male INDICATIONS: Shortness of breath and cough today. CLINICAL DATA: This is the patient's initial encounter. Patient reports that signs and symptoms have been present for 1 day and indicates a pain score of 0/10. MEDICAL/SURGICAL HISTORY: Congestive heart failure. Myocardial infarction. Diabetes. Coronary art sha stent. RADIATION DOSE: 10.18 CTDI (mGy) COMPARISON: No prior exams available for comparison. TECHNIQUE: Volumetric scanning was performed using a multi-row detector CT scanner during bolus infu shyam of 50 ml Visipaque 320 (iodixanol) nonionic water-soluble contrast as a single exam dose. The data was post processed with a variety of visualization algorithms including full volume maximum inte nsity projection, multi-planar sliding thin slab reformation, curved planar reformation, and surface rendering techniques. Using automated exposure control and adjustment of the mA and/or kV according to patient size, radiation dose was kept as low as reasonably achievable to obtain optimal diagnostic quality images. DICOM format image data is available electronically for review and comparison. FINDINGS: Contrast bolus is suboptimal. Initial bolus demonstrates the pulmonary arteries with partial filling distally. No definite pulmonary embolus. There is moderate coronary artery calcification. There is some dependent atelectasis in the lungs. Moderate dextroscoliosis. Mild emphysema especially in the upper lobes. Mild groundglass opacity, possibly mild edema. No aortic dissection identified. Mild aneurysmal dilatation of ascending aorta to about 4.6 cm. Abdom inal aorta within normal limits. Aneurysmal dilatation of the right common iliac to 2.6 cm. No acute findings identified in the liver, spleen, adrenals or pancreas. There are numerous bilateral nonobstructing renal calculi ranging in size from 1 mm to 7 mm on the right and 1 mm left. Small edna ateral renal cysts. No free fluid. No bowel obstruction. Extensive colonic diverticulosis without diverticulitis. CONCLUSION: 1. Mild aneurysmal dilatation of the ascending aorta to about 4.6 cm, not significantly changed prio r exam in September 2018. No abdominal aortic aneurysm. No dissection. 2. Dependent atelectasis in the lungs with moderate dextroscoliosis and mild to moderate emphysema. Mild groundglass opacity could represent some mild pulmonary edema as well. 3. Aneurysmal dilatation of right common iliac to 2.6 cm. 4. Extensive colonic diverticulosis. Small fat-containing umbilical hernia. 5. Bilateral nonobstructing renal calculi. Renal cortical atrophy. Electronically signed by: Brian Clay MD Board Certified Radiologist 12/21/2018 8:14 PM EST
[2018-12-21] MEDS ORDERED: Dextrose 50% in Water 50 ML Vial IV.PUSH PRN (21:26)
--- NOTE | 2018-12-21 21:34 | P.HPIM ---
History of Present Illness Primary Care Physician: UNKNOWN 73-year-old male with a past medical history significant for congestive heart failure, chronic kidney disease coronary artery disease status post NH in April 2018, hypertension, hyperlipidemia, diabetes mellitus and obstructive sleep apnea since to the emergency department for the evaluation of chest pain and shortness of breath. The patient reports he started having URI symptoms on Friday that have progressively worsened. He states he is coughing continuously. He reports a left-sided chest pain that is stabbing and shortness of breath that is worse with lying flat and exertion. He denies any abdominal pain. No nausea/vomiting/diarrhea. No fever/chills. No focal neurologic deficits. Review of Systems Review of Systems: all other systems reviewed are negative [facility] Medical History Medical History Asthma (Acute) CHF (congestive heart failure) (Acute) Diabetes (Acute) HTN (hypertension) (Acute) High cholesterol (Acute) Myocardial infarction (Acute) Surgical History Surgical History H/O melanoma excision (Acute) History of knee surgery (Acute) Hx of appendectomy (Acute) Status post cardiac catheterization (Acute) Family History Family History Father FH: CABG (coronary artery bypass surgery) Mother Heart disease Social History Social History Substance History: No History of Abuse Second Hand Smoke Exposure: No Smoking Status: Former smoker Tobacco Type: Cigarettes How Often Do You Have a Drink Containing Alcohol: Monthly or less Recent Travel in [facility] within the Last 8 Weeks: No Recent Out of Country Travel within the Last 8 Weeks: No Immunization History Tetanus Immunization: >5 Years Medications and Allergies Allergies Allergy/AdvReac Type Severity Reaction Status Date / Time Sulfa (Sulfonamide Allergy Mild Nausea/Vomi Verified 12/21/18 17:48 Antibiotics) ting Home Medications Medication Instructions Recorded Confirmed Type albuterol sulfate 2.5 mg INHALATION Q4-6H PRN 07/24/18 12/21/18 History aspirin 81 mg PO DAILY 07/24/18 12/21/18 History carvedilol [Coreg] 12.5 mg PO BID 07/24/18 12/21/18 History fenofibrate 160 mg PO DAILY 07/24/18 12/21/18 History glipizide 2.5 mg PO DAILY 07/24/18 12/21/18 History latanoprost 1 drp OPHTHALMIC (EYE) QPM 07/24/18 12/21/18 History methocarbamol 500 mg PO QID PRN 07/24/18 12/21/18 History umeclidinium-vilanterol [Anoro 1 inh INHALATION Q24H 07/24/18 12/21/18 History Ellipta] atorvastatin 80 mg PO DAILY 08/25/18 12/21/18 History zolpidem 5 mg PO HS 12/21/18 12/21/18 History Active Medications: Active Medications Albuterol (Duoneb Neb (Prn)) 1 ampul NEB Q4HR NEB PRN PRN Reason: SOB/Wheezing Aspirin (Aspirin Chew) 81 mg PO DAILY [facility] Atorvastatin Calcium (Lipitor) 80 mg PO DAILY [facility] Bumetanide (Bumex Inj) 1 mg IV.PUSH BID@0900,1800 [facility] Carvedilol (Coreg) 12.5 mg PO BID [facility] Methocarbamol (Robaxin) 500 mg PO QID PRN PRN Reason: Pain Non-Formulary Medication (Fenofibrate [Fenofibrate]) 160 mg PO DAILY [facility] Umeclidinium/Vilanterol (Anoro-Ellipta 62.5/25 Mcg Inh) inhalation INH Q24H [facility] Zolpidem Tartrate (Ambien) 5 mg PO [facility] Physical Exam Vital signs: Vital Signs 12/21/18 15:16 12/21/18 17:45 12/21/18 17:51 Pulse Rate 85 79 90 Respiratory Rate 22 18 Blood Pressure 107/59 L 138/65 Pulse Oximetry 93 L 96 94 L 12/21/18 18:05 12/21/18 18:18 12/21/18 20:41 Pulse Rate 82 81 Respiratory Rate 18 17 22 Blood Pressure 150/76 H Pulse Oximetry 95 12/21/18 20:42 Pulse Rate 82 Respiratory Rate 20 Blood Pressure 124/59 L Pulse Oximetry 95 Intake & Output 12/21/18 12/21/18 12/22/18 06:59 18:59 06:59 Output Total 180 / 180 Balance -180 / -180 Weight 118.841 kg Output: Urine 180 / 180 Other: # Voids 1 Narrative: Gen.: No acute distress Head: Normocephalic. Atraumatic. EENT: Pupils equal round and reactive to light. Nose without drainage. Airway intact. Throat without injection. Cardiovascular: Regular rate and rhythm with frequent PVCs. 3/6 MARLENY. Respiratory: Bilateral wheezes Abdomen: Soft, nontender, nondistended. No peritoneal signs. Musculoskeletal: No gross deformities. No edema. Skin: No obvious rashes or erythema. Neuro: Sensory and motor grossly intact. Cranial nerves II through XII grossly intact. Results Labs CBC & Chem 7: 12/21/18 17:55 12/21/18 17:55 Imaging Impressions Chest X-Ray 12/21/18 17:48 CONCLUSION: Basilar airspace disease slightly increased from previous exam in September 2018. Cardiomegaly. Thoracic Aorta CT 12/21/18 18:18 CONCLUSION: 1. Mild aneurysmal dilatation of the ascending aorta to about 4.6 cm, not significantly changed prior exam in September 2018. No abdominal aortic aneurysm. No dissection. 2. Dependent atelectasis in the lungs with moderate dextroscoliosis and mild to moderate emphysema. Mild groundglass opacity could represent some mild pulmonary edema as well. 3. Aneurysmal dilatation of right common iliac to 2.6 cm. 4. Extensive colonic diverticulosis. Small fat-containing umbilical hernia. 5. Bilateral nonobstructing renal calculi. Renal cortical atrophy. Caprini VTE Risk Assessment Caprini VTE Risk Assessment: Moderate/High Risk (score >= 2) Caprini Risk Assessment Model: Point Value = 1 Point Value = 2 Point Value = 3 Point Value = 5 Age 41-60 Minor surgery BMI > 25 kg/m2 Swollen legs Varicose veins or History of unexplained or recurrent spontaneous Oral contraceptives or hormone replacement Sepsis (< 1 month) Serious lung disease, including pneumonia (< 1 month) Abnormal pulmonary function Acute myocardial infarction Congestive heart failure (< 1 month) History of inflammatory bowel disease Medical patient at bed rest Age 61-74 Arthroscopic surgery Major open surgery (> 45 min) Laparoscopic surgery (> 45 min) Malignancy Confined to bed (> 72 hours) Immobilizing plaster cast Central venous access Age >= 75 History of VTE Family history of VTE Factor V Leiden Prothrombin [id number] Lupus anticoagulant Anticardiolipin antibodies Elevated serum homocysteine Heparin-induced thrombocytopenia Other congenital or acquired thrombophilia Stroke (< 1 month) Elective arthroplasty Hip, pelvis, or leg fracture Acute spinal cord injury (< 1 month) Prophylaxis Regimen: Total Risk Factor Score Risk Level Prophylaxis Regimen 0-1 Low Early ambulation 2 Moderate Order ONE of the following: *Sequential Compression Device (SCD) *Heparin 5000 units SQ BID 3-4 Higher Order ONE of the following medications: *Heparin 5000 units SQ TID *Enoxaparin/Lovenox 40 mg SQ daily (WT < 150 kg, CrCl > 30 mL/min) *Enoxaparin/Lovenox 30 mg SQ daily (WT < 150 kg, CrCl > 10-29 mL/min) *Enoxaparin/Lovenox 30 mg SQ BID (WT < 150 kg, CrCl > 30 mL/min) AND/OR *Sequential Compression Device (SCD) 5 or more Highest Order ONE of the following medications: *Heparin 5000 units SQ TID (Preferred with Epidurals) *Enoxaparin/Lovenox 40 mg SQ daily (WT < 150 kg, CrCl > 30 mL/min) *Enoxaparin/Lovenox 30 mg SQ daily (WT < 150 kg, CrCl > 10-29 mL/min) *Enoxaparin/Lovenox 30 mg SQ BID (WT < 150 kg, CrCl > 30 mL/min) AND *Sequential Compression Device (SCD) Assessment and Plan Plan Assessment/plan: 1. Shortness of breath Patient with URI symptoms and wheezes on exam Chest CT shows mild pulmonary edema and patient's BNP elevated from baseline Duo nebs IV Bumex Supplemental oxygen (patient on 3 L nasal cannula at home) 2. Chest pain Patient with history of NH in April EKG shows normal sinus rhythm with frequent PVCs, no ST segment elevation or depression, personally reviewed Initial troponin negative ACS rule out pending; serial troponins/EKGs 3. Chronic kidney disease Creatinine 1.78, baseline Monitor renal function 4. Ascending aortic aneurysm CTA showed mild aneurysmal dilatation of the ascending aorta to 4.6 cm Monitor as outpatient 5. Diabetes mellitus Holding home glipizide Sliding-scale insulin Monitor blood glucose 6. Hypertension/hyperlipidemia/coronary artery disease Continue home medications 7. Obstructive sleep apnea Patient wishes to use his home CPAP FEN N.p.o. Electrolytes: Monitor and replete as needed Heparin
[2018-12-21] MEDS ORDERED: Bisacodyl 10 MG Supp RECTAL PRN (22:00)
[2018-12-21] MEDS ORDERED: Acetaminophen 325 MG Tablet PO PRN (22:00)
[2018-12-21] MEDS ORDERED: Methocarbamol 500 MG Tablet PO PRN (22:00)
[2018-12-21] MEDS ORDERED: Zolpidem Tartrate 5 MG Tablet PO SCH (22:00)
[2018-12-21] MEDS ORDERED: Umeclindinium 62.5 MCG/Vilanterol 25 MCG Inhaler INH SCH (22:00)
[2018-12-21] MEDS: Carvedilol 12.5 MG Tablet PO SCH (22:27)
[2018-12-21] MEDS: Heparin - SQ 10,000 UNITS/ML Vial SQ SCH (22:28)
[2018-12-22 01:05] LABS: Troponin I 0.02 ng/mL (0.02-0.05)
[2018-12-22] MEDS: Insulin NovoLOG Aspart Correctional Sugar Inj SQ SCH ×3 (05:11→12:31)
[2018-12-22] MEDS: Heparin - SQ 10,000 UNITS/ML Vial SQ SCH (06:18)
[2018-12-22 07:32] LABS: Baso % (Auto) 1.2 % (0.0-2.0); Eos # (Auto) 0.2 th/mm3 (0.0-0.4); Eos % (Auto) 4.4 % (0.0-4.0); Hematocrit 38.3 % (39.0-51.0); Hemoglobin 12.7 gm/dL (13.0-17.0); Mean Corpuscular Hemoglobin 30.6 pg (27.0-34.0); Mean Corpuscular Volume 92.7 fL (80.0-100.0); Mean Platelet Volume 10.1 fL (7.0-11.0); Mono # (Auto) 0.6 th/mm3 (0.0-0.9); Mono % (Auto) 14.5 % (0.0-8.0); Neut # (Auto) 2.4 th/mm3 (1.8-7.7); Neut % (Auto) 55.9 % (16.0-70.0); Platelet Count 131 th/mm3 (150-450); Red Blood Count 4.14 mil/mm3 (4.50-5.90); Red Cell Distribution Width 15.5 % (11.6-17.2); White Blood Count 4.3 th/mm3 (4.0-11.0)
[2018-12-22] MEDS: Carvedilol 12.5 MG Tablet PO SCH (08:07)
[2018-12-22 08:14] LABS: Calcium 8.8 mg/dL (8.5-10.1); Carbon Dioxide 27.4 meq/L (21.0-32.0); Potassium 3.6 meq/L (3.5-5.1)
[2018-12-22 08:16] LABS: Creatine Kinase 59 U/L (39-308)
[2018-12-22] MEDS ORDERED: Senna/Docusate Sodium 8.6/50 MG Tablet PO SCH (09:00)
[2018-12-22] MEDS ORDERED: Fenofibrate 145 MG Tablet PO SCH (09:00)
--- NOTE | 2018-12-22 11:01 | P.PNIM ---
Subjective Interval history: Follow-up for CHF, URI, chest pain. Patient reports feeling much better today. He states his chest pain has resolved. He believes the chest pain was related to his intractable cough. He denies any significant shortness of breath currently. He has been ambulating his room without difficulty. He states he has nebulizer and oxygen as needed at home. He states he has an appointment with his child and family services specialist Dr. Noyola tomorrow. Denies any other medical complaints at this time. He agrees to discharge later today after he eats. Physical Exam Vital signs: Vital Signs 12/21/18 15:16 12/21/18 17:45 12/21/18 17:51 Temperature Pulse Rate 85 79 90 Respiratory Rate 22 18 Blood Pressure 107/59 L 138/65 Pulse Oximetry 93 L 96 94 L 12/21/18 18:05 12/21/18 18:18 12/21/18 20:41 Temperature Pulse Rate 82 81 Respiratory Rate 18 17 22 Blood Pressure 150/76 H Pulse Oximetry 95 12/21/18 20:42 12/21/18 22:41 12/22/18 00:00 Temperature 98.6 F Pulse Rate 82 80 Respiratory Rate 20 16 Blood Pressure 124/59 L 125/69 Pulse Oximetry 95 95 94 L 12/22/18 03:40 12/22/18 04:00 12/22/18 07:37 Temperature 96.6 F L Pulse Rate 88 74 87 Respiratory Rate 16 20 Blood Pressure 112/55 L 140/67 Pulse Oximetry 95 96 12/22/18 08:00 12/22/18 08:38 Temperature Pulse Rate 87 Respiratory Rate Blood Pressure Pulse Oximetry 97 Intake & Output 12/21/18 12/22/18 12/22/18 18:59 06:59 18:59 Output Total 180 / 180 Balance -180 / -180 Weight 118.841 kg 118.388 kg Output: Urine 180 / 180 Other: # Voids 1 Date of Last Bowel Movement 12/21/18 12/21/18 Weight On Admission 118.841 kg Narrative: GENERAL: Well-nourished, well-developed pleasant elderly male patient in [facility]. SKIN: Warm and dry. No rash. HEENT: Normocephalic. Atraumatic. Mucous membranes pink and moist. CARDIOVASCULAR: Regular rate and rhythm. 3/6 systolic murmur noted. RESPIRATORY: No accessory muscle use. Clear to auscultation. Breath sounds equal bilaterally. GASTROINTESTINAL: Abdomen soft, non-tender, nondistended. Normoactive bowel sounds x4. MUSCULOSKELETAL: No obvious deformities. Trace bilateral lower extremity edema. NEUROLOGICAL: Awake and alert. No obvious cranial nerve deficits. Moving all extremities spontaneously. Normal speech. PSYCHIATRIC: Appropriate mood and affect; insight and judgment normal. Results Labs CBC & Chem 7: 12/22/18 05:50 12/22/18 05:50 Imaging Imaging: Impressions Chest X-Ray 12/21/18 17:48 CONCLUSION: Basilar airspace disease slightly increased from previous exam in September 2018. Cardiomegaly. Thoracic Aorta CT 12/21/18 18:18 CONCLUSION: 1. Mild aneurysmal dilatation of the ascending aorta to about 4.6 cm, not significantly changed prior exam in September 2018. No abdominal aortic aneurysm. No dissection. 2. Dependent atelectasis in the lungs with moderate dextroscoliosis and mild to moderate emphysema. Mild groundglass opacity could represent some mild pulmonary edema as well. 3. Aneurysmal dilatation of right common iliac to 2.6 cm. 4. Extensive colonic diverticulosis. Small fat-containing umbilical hernia. 5. Bilateral nonobstructing renal calculi. Renal cortical atrophy. Assessment and Plan Plan 73-year-old male with history of diastolic CHF, mild CAD s/p DC in April 2018, HTN, HLD, DM, HIREN, presents with chest pain and shortness of breath with recent URI symptoms. Dyspnea: Suspect multifactorial secondary to recent URI/bronchitis and mild CHF exacerbation -Chest CT shows mild pulmonary edema and patient's BNP elevated from baseline -Continue duo nebs -Continue diuresis with IV Bumex -Supplemental oxygen (patient on 3 L nasal cannula at home) -Symptoms improved, patient ambulating without difficulty, O2 sat stable on home oxygen Acute on chronic diastolic CHF: CT with mild edema, and elevated BNP -Given diuresis with IV Bumex 1 mg bid -Monitor I's and O's, daily weights -Symptoms improved -Continue outpatient follow-up with child and family services specialist Dr. Noyola, has appointment tomorrow 12/23 Chest pain: With history of DC in April 2018, cardiac catheterization in [place] showed mild CAD, no stenting -EKG shows normal sinus rhythm with frequent PVCs, no ST segment elevation or depression -ACS ruled out with negative serial cardiac enzymes x3 -Monitor on telemetry -Chest pain resolved with improvement of cough -Follow-up with child and family services specialist as outpatient as scheduled tomorrow 12/23 Chronic kidney disease, stage III: Chronic, Creatinine 1.78, baseline -Caution with diuresis -Monitor renal function, stable Ascending aortic aneurysm: Chronic, seen on last admission, patient informed of the results -CTA showed mild aneurysmal dilatation of the ascending aorta to 4.6 cm -Monitor as outpatient Diabetes mellitus: Chronic -Holding home glipizide -Monitor Accu-Cheks and cover with sliding-scale insulin Hypertension/hyperlipidemia: Chronic -Continue home medications Obstructive sleep apnea: Chronic -Patient wishes to use his home CPAP, will continue DVT prophylaxis: Heparin Discharge Planning: Discharge patient to home Condition on discharge: Stable Heart healthy/diabetic diet as tolerated Ad Saranya activity Rx written: No new meds Follow-up with primary care physician and child and family services specialist Dr. Noyola as scheduled tomorrow 12/23 Attending Attestation patient was seen and examined. looks comfortable and he says that his sob has much improved. no chest pain. on exam; patient with no acute distress.S1/S2 heard/abdomen is soft/no pedal edema/ bilateral air entry present. patient will be discharged home later today with f/u with his pcp. patient is on home oxygen. Progress Note: Quality VTE Deep Vein Thrombosis/Pulmonary Embolism Present on Admission: No
[2018-12-22 11:30] VITALS: BP 137/62; PULSE 74; RESP 18; TEMP 98.3; O2SAT 95
--- NOTE | 2018-12-22 14:29 | ECG ---
Date Performed: 12/22/2018 Time Performed: 00:28:55 PTAGE: 73 years EKG: Sinus rhythm WITH FREQUENT SUPRAVENTRICULAR PREMATURE COMPLEXES INTRAVENTRICULAR CONDUCTION DELAY ABNORMAL ECG PREVIOUS TRACING : 12/21/2018 17.10 Since the previous tracing, no significant change noted DOCTOR: Fidencio Estrada Interpretating Date/Time 12/23/2018 07:06:21
--- NOTE | 2018-12-22 16:57 | ECG ---
Date Performed: 12/21/2018 Time Performed: 17:10:37 PTAGE: 73 years EKG: Sinus rhythm WITH FIRST DEGREE AV BLOCK WITH OCCASIONAL VENTRICULAR PREMATURE COMPLEXES MARKED LEFT AXIS DEVIATIO N INTRAVENTRICULAR CONDUCTION DELAY POSSIBLE LATERAL MYOCARDIAL INFARCTION Since the previous tracing , no significant change noted ABNORMAL ECG NO PREVIOUS TRACING DOCTOR: Fidencio Estrada Interpretating Date/Time 12/22/2018 16:56:58
--- NOTE | 2018-12-22 16:58 | ECG ---
Date Performed: 12/22/2018 Time Performed: 06:07:31 PTAGE: 73 years EKG: Sinus rhythm WITH MARKED SINUS ARRHYTHMIA WITH FIRST DEGREE AV BLOCK INTRAVENTRICULAR CONDUCTION DELAY Since the previous tracing, no significant change noted ABNORMAL ECG PREVIOUS TRACING : 12/22/2018 00.30 DOCTOR: Fidencio Estrada Interpretating Date/Time 12/22/2018 16:57:34
== END 2018-12-22 13:53 | disposition home or self-care (01) ==
LOC: NEDA 15:02 → NEPD 15:02 → NEPGCP 21:50
PROVIDERS: ADMIT Internal Medicine; ATTEND Internal Medicine
DX: J06.9 Acute upper respiratory infection, unspecified; I25.10 Atherosclerotic heart disease of native coronary artery without angina pectoris; G47.33 Obstructive sleep apnea (adult) (pediatric); I50.33 Acute on chronic diastolic (congestive) heart failure; Z79.899 Other long term (current) drug therapy; I25.2 Old myocardial infarction; I49.3 Ventricular premature depolarization; I13.0 Hypertensive heart and chronic kidney disease with heart failure and stage 1 through stage 4 chronic kidney disease, or unspecified chronic kidney disease; Z85.820 Personal history of malignant melanoma of skin; K42.9 Umbilical hernia without obstruction or gangrene; J44.9 Chronic obstructive pulmonary disease, unspecified; I71.2 Thoracic aortic aneurysm, without rupture; Z99.81 Dependence on supplemental oxygen; N20.0 Calculus of kidney; M41.9 Scoliosis, unspecified; Z87.891 Personal history of nicotine dependence; E78.5 Hyperlipidemia, unspecified; Z79.82 Long term (current) use of aspirin; N18.3 Chronic kidney disease, stage 3 (moderate); K57.30 Diverticulosis of large intestine without perforation or abscess without bleeding; E11.22 Type 2 diabetes mellitus with diabetic chronic kidney disease
CPT/HCPCS: 71010; 71045; 71275; 74175; 80048; 80053; 82550; 82948; 82962; 83520; 83880; 84484; 85025; 85379; 85610; 85730; 93005; 94664; 96372; 96374; 99285; G0378; J1644; Q9967